=== PATIENT | female | born 1945 | race Caucasian/White ===

== ENCOUNTER → 2017-05-23 14:50 | Outpatient (POV) | payer MEDICARE, SELFPAY | PROVIDERS: Visit Provider Dermatology | DX: Z00.00 Encounter for general adult medical examination without abnormal findings (principal) ==

== ENCOUNTER → 2017-12-09 10:19 | Outpatient (CLI) | payer MEDICARE, OTHER, SELFPAY ==
--- NOTE | 2017-12-09 10:22 | MM_ITS ---
MM Dig screening mamm BI w/CAD ORDERING PHYSICIAN : Delgado Blanca MD PATIENT AGE: 72 years GENDER: Female COMPARISON: November 2016, 2015, 2014, October INDICATION: ITS.REASON: screening no hormones no new complaints. Previous excisional biopsy left breast inverted nipple on left hilar nodes Family history. Sister & maternal Aunt with breast cancer TECHNIQUE: Standard CC and MLO images were obtained. R2 CAD reviewed. FINDINGS: Moderate breast density. Stable mild asymmetric pattern bilateral. . No suspicious, dominant mass. No suspicious calcifications. RIGHT BREAST:No areas of significant concern.. MLO appears unchanged since at least 2013 LEFT BREAST: Long-standing subtle architectural distortion is seen at the central left breast was 12:00. A pacemaker is noted just at the superior most margin of MLO image IMPRESSION: ...... Stable bilateral mammogram. Bilateral follow-up in one year recommended. No significant new findings. Moderate density BI-RADS Category: 2 Benign Finding(s) RECOMMENDED FOLLOW-UP: 1YR 1 YEAR FOLLOW-UP (A letter has been sent to the patient regarding results of the study.)
== END ==
PROVIDERS: PCP Physician Assistant; Visit Provider Obstetrics & Gynecology
DX: Z12.31 Encounter for screening mammogram for malignant neoplasm of breast (principal)
CPT/HCPCS: 77067

== ENCOUNTER → 2018-01-14 11:06 | Outpatient (POV) | payer MEDICARE, OTHER, SELFPAY | PROVIDERS: Visit Provider Dermatology | DX: Z00.00 Encounter for general adult medical examination without abnormal findings (principal) ==

== ENCOUNTER 2018-06-09 08:00 | Outpatient (RCR) | payer MEDICARE, OTHER, SELFPAY | END 2018-06-09 14:44 | disposition home or self-care (01) | LOC: OT 08:00 | PROVIDERS: Visit Provider Orthopaedic Surgery Adult Reconstructive Orthopaedic Surgery | DX: M75.42 Impingement syndrome of left shoulder (principal) | CPT/HCPCS: 97033; 97110; 97165 ==

== ENCOUNTER → 2018-12-18 16:19 | Outpatient (CLI) | payer MEDICARE, OTHER, SELFPAY ==
--- NOTE | 2018-12-18 16:23 | MM_ITS ---
PROCEDURE: MM DIG SCREENING MAMM BI W/CAD CLINICAL INDICATION: screening There is a history of breast cancer patient's maternal aunt and sister both diagnosed after menopause. COMPARISON: [facility] DIG MAMM-SCREEN RONY from 12/05/2015 [facility] DIG MAMM-SCREEN RONY W/CAD from 12/06/2016 [facility] MM Dig screening mamm BI w/CAD from 12/09/2017 TECHNIQUE: Standard CC and MLO images were obtained. R2 CAD reviewed. FINDINGS: Moderate diffuse somewhat heterogenic fibroglandular densities are seen in this central portions of both breasts and the findings of bilateral and symmetrical. There is faint arterial calcification in each breast. There is no suspicious lesion and no suspicious microcalcifications. IMPRESSION: Moderate breast density with no suspicious lesions seen BI-RAD Category: 2 Benign Finding(s) FOLLOW-UP: 1YR 1 Year Follow-up (A letter has been sent to the patient regarding results of the study.) Dictated by: Dr. Fede Salas MD 12/22/2018 09:[address] Fede Salas MD in [place] 12/22/2018 09:33
== END ==
PROVIDERS: PCP Physician Assistant; Visit Provider Obstetrics & Gynecology
DX: Z12.31 Encounter for screening mammogram for malignant neoplasm of breast (principal)
CPT/HCPCS: 77067

== ENCOUNTER → 2018-12-22 12:52 | Outpatient (CLI) | payer MEDICARE, OTHER, SELFPAY ==
--- NOTE | 2018-12-22 12:54 | XR_ITS ---
PROCEDURE: XR DEXA AXIAL SKELETON CLINICAL HISTORY: screening COMPARISON: No exams were available for comparison FINDINGS: L1-L4 density is 1.145 grams/centimeters sq with T-score -0.3 which is normal. Left femoral neck density is 0.855 grams/centimeters sq with a T-score -1.3 indicating osteopenia IMPRESSION: Osteopenia with moderate fracture risk. Treatment advised. Suggest follow-up exam December 2020 Dictated by: Charly Loyola MD 12/22/2018 14:12 Electronically signed by Charly Loyola MD in [place] 12/22/2018 14:12
== END ==
PROVIDERS: PCP Physician Assistant; Visit Provider Obstetrics & Gynecology
DX: Z78.0 Asymptomatic menopausal state (principal); M85.89 Other specified disorders of bone density and structure, multiple sites
CPT/HCPCS: 77080

== ENCOUNTER → 2019-11-03 11:15 | Outpatient (POV) | payer MEDICARE, OTHER, SELFPAY | PROVIDERS: Visit Provider Dermatology | DX: Z00.00 Encounter for general adult medical examination without abnormal findings (principal) ==

== ENCOUNTER → 2019-12-15 14:02 | Outpatient (POV) | payer MEDICARE, OTHER, SELFPAY | PROVIDERS: Visit Provider Dermatology | DX: Z00.00 Encounter for general adult medical examination without abnormal findings (principal) ==

== ENCOUNTER → 2019-12-23 12:33 | Outpatient (CLI) | payer MEDICARE, OTHER, SELFPAY ==
--- NOTE | 2019-12-23 12:36 | MM_ITS ---
PROCEDURE: MM DIG SCREENING MAMM BI W/CAD Digital Breast Tomosynthesis Included CLINICAL INDICATION: SCREENING There is a history of breast cancer patient's maternal aunt and sister both diagnosed after menopause. There has been a previous biopsy left breast for benign disease. COMPARISON: MG [facility] DIG MAMM-SCREEN RONY W/CAD from 12/06/2016 MG [facility] MM Dig screening mamm BI w/CAD from 12/09/2017 MG MM DIG SCREENING MAMM BI W/CAD from 12/18/2018 TECHNIQUE: Standard CC and MLO images and 3D Tomosynthesis was obtained. R2 CAD reviewed. FINDINGS: The fibroglandular densities are seen in the central portions of both breasts and the findings are bilateral and symmetrical. There is faint arterial calcification in each breast. A cardiac device is seen projecting over the left axilla. 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 There is no new or suspicious lesion in either breast and no suspicious microcalcifications. IMPRESSION: Moderate breast density with no suspicious lesions seen BI-RAD Category: 2 Benign Finding(s) FOLLOW-UP: 1YR 1 Year Follow-up (A letter has been sent to the patient regarding results of the study.) Dictated by: Dr. Fede Salas MD 12/29/2019 07:51 Dr. Fede Salas MD in [place] 12/29/2019 07:51
== END ==
PROVIDERS: PCP Physician Assistant; Visit Provider Physician Assistant
DX: Z12.31 Encounter for screening mammogram for malignant neoplasm of breast (principal)
CPT/HCPCS: 77063; 77067

== ENCOUNTER → 2020-06-03 09:53 | Outpatient (CLI) | payer MEDICARE, OTHER, SELFPAY ==
--- NOTE | 2020-06-03 09:56 | XR_ITS ---
PROCEDURE: XR DEXA AXIAL SKELETON CLINICAL HISTORY: OSTEOPOROSIS COMPARISON: CR,DX BONE3 BONE DENSITOMETRY(HIP:LT SPINE from 12/05/2015 FINDINGS: The right hip BMD is 0.807 with a T-score of -0.4. The left hip BMD is 0.712 with a T-score of -1.2. The lumbar spine BMD is 0.967 with a T-score of -0.7. Previously the lowest density was in the left femoral neck with a T-score of -1.0 IMPRESSION: This patient is considered osteopenic according to the World Health Organization criteria. Bone density is between 10 and 25 percent below young normal. Fracture risk is moderate. Treatment is advised. Based on these results a follow-up exam is recommended in 2 year. Dictated by: Charly Loyola MD 06/04/2020 13:31 Charly Loyola MD in [place] 06/04/2020 13:31
== END ==
PROVIDERS: PCP Physician Assistant; Visit Provider Physician Assistant
DX: M81.0 Age-related osteoporosis without current pathological fracture (principal)
CPT/HCPCS: 77080

== ENCOUNTER 2020-10-19 12:43 | Outpatient (CLI) | payer MEDICARE, OTHER, SELFPAY ==
[2020-10-19 13:03] VITALS: BP 119/56; PULSE 64; RESP 18; TEMP 36.8; O2SAT 98
== END 2020-10-19 13:15 | disposition home or self-care (01) ==
LOC: INF 12:45
PROVIDERS: PCP Family Medicine; Visit Provider Family Medicine
DX: M85.89 Other specified disorders of bone density and structure, multiple sites (principal)
CPT/HCPCS: 96372; J0897

== ENCOUNTER → 2020-12-26 12:43 | Outpatient (CLI) | payer MEDICARE, OTHER, SELFPAY ==
--- NOTE | 2020-12-26 13:12 | MM_ITS ---
PROCEDURE INFORMATION: Exam: MG Bilateral Screening 3D Mammography Exam date and time: 12/26/2020 1:12 PM Age: 75 years old Clinical indication: Encounter for screening mammogram for malignant neoplasm of breast TECHNIQUE: Imaging protocol: Bilateral screening tomosynthesis and 2D mammography including computer-aided detection (CAD) when performed. COMPARISON: 1. MG MM DIG SCREENING MAMM BI W/CAD 12/23/2019 1:06 PM 2. MG MM DIG SCREENING MAMM BI W/CAD 12/18/2018 4:32 PM FINDINGS: MAMMOGRAPHY: Breast composition: The breast tissue is heterogeneously dense, which may obscure small masses. There is limited evaluation of the posterior left upper breast and pectoralis muscle on the left. IMPRESSION: Patient to be recalled for a repeat left MLO view for better visualization of the posterior tissue and pectoralis muscle at which time a full radiographic interpretation will be made ASSESSMENT: BI-RADS Category 0: Incomplete- Need Additional Imaging Evaluation and/or Prior Mammograms for Comparison
== END ==
PROVIDERS: PCP Family Medicine; Visit Provider Family Medicine
DX: Z12.31 Encounter for screening mammogram for malignant neoplasm of breast (principal)
CPT/HCPCS: 77063; 77067

== ENCOUNTER → 2021-01-17 14:41 | Outpatient (POV) | payer MEDICARE, OTHER, SELFPAY | PROVIDERS: Visit Provider Dermatology | DX: Z00.00 Encounter for general adult medical examination without abnormal findings (principal) ==

== ENCOUNTER → 2021-01-24 14:31 | Outpatient (CLI) | payer MEDICARE, OTHER, SELFPAY ==
--- NOTE | 2021-01-24 14:36 | US_ITS ---
PROCEDURE INFORMATION: Exam: US Left Breast, Complete MG Left Diagnostic Breast Tomosynthesis Exam date and time: 01/24/2021 2:36 PM Age: 75 years old Clinical indication: PT has a frozen lt shoulder. Preventing adequate muscle. PT also had a lt breast u/s to evaluate the area; U/s evaluation of axillary tail due to inadequate muscle on mammogram. TECHNIQUE: Imaging protocol: Complete ultrasound of all four quadrants of the Left breast and the retroareolar regions, including ultrasound of the axilla when performed. Left Diagnostic tomosynthesis and 2D mammography including computer-aided detection (CAD) when performed. Unilateral or bilateral exam. COMPARISON: 1. MG MM DIG SCREENING MAMM BI W/CAD 12/26/2020 1:08 PM 2. MG MM DIG SCREENING MAMM BI W/CAD 12/23/2019 1:06 PM FINDINGS: MAMMOGRAPHY: The breast tissue is heterogeneously dense, which may obscure small masses. There is no stellate mass, architectural distortion or suspicious microcalcifications in either breast to suggest malignancy. No skin thickening or axillary adenopathy. The study is limited by the patient's inability to fully cooperate with the examination ULTRASOUND: Sonographic images of the left breast including the retroareolar region, all 4 quadrants and the axilla do not demonstrate any solid or cystic masses. No architectural distortion or acoustical shadowing. No skin thickening or axillary adenopathy. IMPRESSION: No mammographic or sonographic evidence of malignancy. Annual bilateral mammographic screening is recommended unless otherwise clinically indicated. ASSESSMENT: BI-RADS Category 1: Negative
== END ==
PROVIDERS: PCP Family Medicine; Visit Provider Family Medicine
DX: R92.8 Other abnormal and inconclusive findings on diagnostic imaging of breast (principal)
CPT/HCPCS: 76641; 77061; 77065; G0279

== ENCOUNTER 2021-04-18 12:16 | Outpatient (CLI) | payer MEDICARE, OTHER, SELFPAY ==
[2021-04-18 12:33] VITALS: BP 113/47; PULSE 67; RESP 16; TEMP 36.2; O2SAT 98
== END 2021-04-18 12:34 | disposition home or self-care (01) ==
LOC: INF 12:19
PROVIDERS: PCP Family Medicine; Visit Provider Family Medicine
DX: M81.0 Age-related osteoporosis without current pathological fracture (principal)
CPT/HCPCS: 96372; J0897

== ENCOUNTER 2021-07-24 09:41 | Emergency (ER) | payer MEDICARE, OTHER, SELFPAY ==
[2021-07-24 09:42] VITALS: BP 132/102; PULSE 91; RESP 16; TEMP 36.6; O2SAT 98; BMI 25.8
[2021-07-24 09:46] VITALS: BP 132/102; PULSE 98; O2SAT 100
--- NOTE | 2021-07-24 09:46 | XR_ITS ---
FINAL REPORT CLINICAL HISTORY: fall, knee injury, pain and swelling lt knee cap FINDINGS: LEFT KNEE 3 views of the left knee were obtained. There is no acute fracture or dislocation. Visualized joint spaces are normally aligned. There is prepatellar soft tissue swelling. IMPRESSION: No acute bony abnormality. Reviewed, Interpreted and Dictated by Juan Taylor III, MD Transcribed by Shelbi Pham Authenticated and [facility]
--- NOTE | 2021-07-24 09:46 | CT_ITS ---
FINAL REPORT CLINICAL HISTORY: fall, left front hematoma FINDINGS: Axial images of the head were obtained without contrast. Coronal reformatted images were also obtained. This study was performed with techniques to keep radiation doses as low as reasonably achievable (ALARA). Individualized dose reduction techniques using automated exposure control or adjustment of mA and/or kV according to the patient''s size were employed. There is generalized age-appropriate atrophy. Periventricular low-attenuation areas are seen consistent with mild chronic ischemic changes. There is no evidence of intracranial hemorrhage or mass. There is no evidence of acute infarct. There is no evidence of shift of the midline structures. No skull abnormality is seen on the bone window images. There is left frontal scalp hematoma noted. IMPRESSION: Atrophy and mild periventricular chronic ischemic changes. No acute intracranial abnormality identified. Reviewed, Interpreted and Dictated by Juan Taylor III, MD Transcribed by Shelbi Pham Authenticated and [facility]
--- NOTE | 2021-07-24 09:46 | XR_ITS ---
FINAL REPORT CLINICAL HISTORY: fall, pain, lt ant rib pain FINDINGS: RIBS WITH CHEST A single PA view of the chest and three views of the ribs were obtained. A left subclavian pacemaker is in place. The heart and mediastinum within normal limits. The lungs are clear. There is no pneumothorax. There is irregularity of the left distal 5th, 6th and 7th ribs worrisome for nondisplaced fractures. IMPRESSION: Irregularity of the distal left 5th, 6th and 7th ribs worrisome for nondisplaced fractures. No pneumothorax or acute cardiopulmonary process. Reviewed, Interpreted and Dictated by Juan Taylor III, MD Transcribed by Shelbi Pham Authenticated and . [facility]
--- NOTE | 2021-07-24 09:48 | HMH.EDGENADL ---
ED Disposition Clinical Impression: Fall Qualifiers: Encounter type: initial encounter Qualified Code(s): W19.XXXA - Unspecified fall, initial encounter Traumatic closed nondisplaced fracture of one rib of left side Qualifiers: Encounter type: initial encounter Qualified Code(s): S22.32XA - Fracture of one rib, left side, initial encounter for closed fracture Contusion of left knee Qualifiers: Encounter type: initial encounter Qualified Code(s): S80.02XA - Contusion of left knee, initial encounter Traumatic hematoma of forehead Qualifiers: Encounter type: initial encounter Qualified Code(s): S00.83XA - Contusion of other part of head, initial encounter Disposition: Home, Self-Care Condition on Discharge: Fair Instructions: DI for Rib Fracture, DI for Rib Contusion, DI for Closed Head Injury Additional Instructions: You have been evaluated for injuries from a fall. You have been diagnosed with nondisplaced rib fracture on the left. You have soft tissue swelling (contusion) of the left forehead and left knee. Please take Tylenol and Motrin for pain. Use the incentive spirometer to prevent development of pneumonia. Follow-up with your primary care doctor before the end of the week. Return to the emergency department at once for any new or worsening symptoms. Prescriptions: Hydrocod/Acet 5/325 mg [[place] 5/325mg tablet] 1 tab PO Q6HP PRN #6 tab PRN Reason: Severe Pain Transmission Status: Sent to [facility] Referrals: Opal Tanner [Primary Care Provider] - Time of Disposition: 12:04 - Critical Care Critical Care Time: No Attestation: On , the high probability of a clinically significant, sudden or life threatening deterioration of the following system(s) required my full and direct attention, intervention and personal management. The time I documented below is in addition to time spent performing reported procedures but includes the following listed in this critical care notation. Medical Decision Making - Medical Records Medical records reviewed: Yes: I reviewed the patient's medical records. - Quan Inquiry Pt receiving controlled substance: No Vital Signs: 07/24/21 09:42 07/24/21 09:46 Temperature 98 F Temperature Source Oral Pulse Rate 98 H Pulse Rate [Left Radial] 91 H Respiratory Rate 16 Blood Pressure 132/102 H Blood Pressure [Right Arm] 132/102 H Blood Pressure Mean [Right Arm] 112 Blood Pressure Source [Right Arm] Automatic Cuff Blood Pressure Position [Right Arm] Sitting 02 Sat by Pulse Oximetry 98 100 Oxygen Delivery Method Room Air Orders (Tests/Meds): ED MEDICATIONS Discontinued Medications Generic Name Dose Route Start Last Admin Trade Name Layne PRN Reason Stop Dose Admin Acetaminophen 500 mg 07/24/21 09:52 07/24/21 10:23 Acetaminophen 500mg Tab PO 07/24/21 09:53 500 mg ONCE ONE Administration - Radiology Data #1 Image(s): Chest Image Reviewed: Yes I reviewed the patient's radiology results, Yes I reviewed the patient's radiology image Preliminary Findings: Abnormal Possible nondisplaced rib fractures, left 5, 6, 7 #2 Image(s): Knee Image Reviewed: Yes I reviewed the patient's radiology results, Yes I reviewed the patient's radiology image, Yes I have reviewed radiologist's interpretation Preliminary Findings: Normal/NAD - CT Data CT Scan: Head Time Received: 12:[address] Reviewed: Yes: I have reviewed the patient's CT results, I have viewed the radiologist's interpretation Preliminary Findings: Normal/NAD Medical Decision Narrative: In summary this is a 76-year-old female who takes daily aspirin, presenting to the emergency department with head injury, left-sided rib pain, left knee pain after a fall. Patient clinically stable on arrival. Vital signs within normal limits. She is conversational. Will obtain noncontrast head CT, x-ray left knee, x-ray ribs. Noncontrast head CT shows no intracranial blee
--- NOTE | 2021-07-24 09:56 | PC.NURSE ---
notified rad of xray orders, spoke with epi
--- NOTE | 2021-07-24 10:00 | PC.NURSE ---
pt to radiology
--- NOTE | 2021-07-24 10:22 | PC.NURSE ---
pt return from radiology
--- NOTE | 2021-07-24 10:25 | PC.NURSE ---
Ice pack given to pt
[2021-07-24 11:30] VITALS: BP 118/47
[2021-07-24 12:00] VITALS: BP 128/53
--- NOTE | 2021-07-24 12:20 | PC.NURSE ---
respiratory called to give pt incentive spirometer
[2021-07-24 12:31] VITALS: BP 122/46
--- NOTE | 2021-07-24 12:53 | PC.NURSE ---
contacted [facility] pharmacy about pt requesting prescription to go to [facility] instead. Pharmacist states she will back prescription out so it can be filled at [facility]
[2021-07-24 12:55] VITALS: BP 122/46; PULSE 68; RESP 16; TEMP 36.6; O2SAT 99
== END 2021-07-24 12:55 | disposition home or self-care (01) ==
PROVIDERS: Emergency Provider Emergency Medicine; PCP Family Medicine
DX: S22.32XA Fracture of one rib, left side, initial encounter for closed fracture (principal); S80.02XA Contusion of left knee, initial encounter; S00.83XA Contusion of other part of head, initial encounter; W01.0XXA Fall on same level from slipping, tripping and stumbling without subsequent striking against object, initial encounter; Z79.82 Long term (current) use of aspirin; Z79.899 Other long term (current) drug therapy; I48.91 Unspecified atrial fibrillation; E78.5 Hyperlipidemia, unspecified; I10 Essential (primary) hypertension; Z95.0 Presence of cardiac pacemaker; E03.9 Hypothyroidism, unspecified; M81.0 Age-related osteoporosis without current pathological fracture
CPT/HCPCS: 70450; 71101; 73562; 99284

== ENCOUNTER → 2021-08-29 14:07 | Outpatient (POV) | payer MEDICARE, OTHER, SELFPAY | PROVIDERS: Visit Provider Dermatology | DX: Z00.00 Encounter for general adult medical examination without abnormal findings (principal) ==

== ENCOUNTER 2021-12-11 10:53 | Outpatient (CLI) | payer MEDICARE, OTHER, SELFPAY | END 2021-12-11 11:12 | disposition home or self-care (01) | LOC: INF 10:54 | PROVIDERS: PCP Family Medicine; Visit Provider Family Medicine | DX: M85.89 Other specified disorders of bone density and structure, multiple sites (principal) | CPT/HCPCS: 96372; J0897 ==

== ENCOUNTER → 2022-01-26 10:09 | Outpatient (CLI) | payer MEDICARE, OTHER, SELFPAY ==
--- NOTE | 2022-01-26 10:13 | MM_ITS ---
PROCEDURE INFORMATION: Exam: MG Bilateral Screening 3D Mammography Exam date and time: 01/26/2022 10:19 AM Age: 76 years old Clinical indication: Screening examination TECHNIQUE: Imaging protocol: Bilateral Screening tomosynthesis and 2D mammography including computer-aided detection (CAD) when performed.Limited assessment due to difficulty positioning the patient. COMPARISON: 1. MG MM DIG MAMM DX UNILAT LT CAD 01/24/2021 2:42 PM 2. MG MM DIG SCREENING MAMM BI W/CAD 12/26/2020 1:08 PM 3. MG MM DIG SCREENING MAMM BI W/CAD 12/23/2019 1:06 PM 4. MG MM DIG SCREENING MAMM BI W/CAD 12/18/2018 4:32 PM FINDINGS: MAMMOGRAPHY: Breast composition: The breast is heterogeneously dense, which may obscure small masses. Mass: None. Architectural distortion: No new or suspicious architectural distortion. Calcifications: No new or suspicious calcifications are present Asymmetric density: No new or suspicious asymmetric density is present Skin thickening: None. Axillary adenopathy: None. IMPRESSION: No mammographic evidence of malignancy. Recommend annual screening mammography unless otherwise clinically indicated. ASSESSMENT: BI-RADS category 1: Negative
== END ==
PROVIDERS: PCP Family Medicine; Visit Provider Family Medicine
DX: Z12.31 Encounter for screening mammogram for malignant neoplasm of breast (principal)
CPT/HCPCS: 77063; 77067

== ENCOUNTER 2022-06-11 12:42 | Outpatient (CLI) | payer MEDICARE, OTHER, SELFPAY ==
[2022-06-11 12:57] VITALS: BP 129/67; PULSE 76; RESP 18; TEMP 36.4; O2SAT 100
== END 2022-06-11 13:20 | disposition home or self-care (01) ==
LOC: INF 12:43
PROVIDERS: PCP Family Medicine; Visit Provider Family Medicine
DX: M81.0 Age-related osteoporosis without current pathological fracture (principal)
CPT/HCPCS: 96372; J0897

== ENCOUNTER 2022-12-11 13:01 | Outpatient (CLI) | payer MEDICARE, OTHER, SELFPAY ==
[2022-12-11 13:12] VITALS: BP 124/60; PULSE 88; RESP 16; TEMP 36.7; O2SAT 99
== END 2022-12-11 13:25 | disposition home or self-care (01) ==
LOC: INF 13:03
PROVIDERS: PCP Family Medicine; Visit Provider Family Medicine
DX: M85.89 Other specified disorders of bone density and structure, multiple sites (principal)
CPT/HCPCS: 96372; J0897

== ENCOUNTER → 2023-02-12 10:08 | Outpatient (CLI) | payer MEDICARE, OTHER, SELFPAY ==
--- NOTE | 2023-02-12 10:14 | MM_ITS ---
PROCEDURE INFORMATION: Exam: MG Bilateral Screening 3D Mammography Exam date and time: 02/12/2023 10:03 AM Age: 77 years old Clinical indication: Screening mammogram TECHNIQUE: Imaging protocol: Bilateral Screening tomosynthesis and 2D mammography including computer-aided detection (CAD) when performed. COMPARISON: 1. MG MM DIG SCREENING MAMM BI W/CAD 01/26/2022 10:19 AM 2. MG MM DIG MAMM DX UNILAT LT CAD 01/24/2021 2:42 PM 3. MG MM DIG SCREENING MAMM BI W/CAD 12/26/2020 1:08 PM 4. MG MM DIG SCREENING MAMM BI W/CAD 12/23/2019 1:06 PM FINDINGS: MAMMOGRAPHY: Breast composition: There are scattered areas of fibroglandular density. Mass: None. Architectural distortion: No new or suspicious architectural distortion. Calcifications: No new or suspicious calcifications are present Asymmetric density: No new or suspicious asymmetric density is present Skin thickening: None. Axillary adenopathy: None. IMPRESSION: No mammographic evidence of malignancy. Recommend annual screening mammography unless otherwise clinically indicated. ASSESSMENT: BI-RADS category 1: Negative
== END ==
PROVIDERS: PCP Family Medicine; Visit Provider Family Medicine
DX: Z12.31 Encounter for screening mammogram for malignant neoplasm of breast (principal)
CPT/HCPCS: 77063; 77067

== ENCOUNTER 2023-03-19 11:19 | Outpatient (POV) | payer MEDICARE, OTHER, SELFPAY | END 2023-03-19 23:59 | disposition home or self-care (01) | LOC: SC 11:19 | PROVIDERS: PCP Family Medicine; Visit Provider Dermatology | DX: Z00.00 Encounter for general adult medical examination without abnormal findings (principal) ==

== ENCOUNTER 2023-07-09 14:36 | Outpatient (CLI) | payer MEDICARE, OTHER, SELFPAY ==
[2023-07-09] MEDS: DENOSUMAB 60 MG/ML SYRINGE SQ (14:48)
[2023-07-09 14:50] VITALS: BP 129/61; PULSE 77; RESP 18; TEMP 37; O2SAT 97
== END 2023-07-09 14:55 | disposition home or self-care (01) ==
LOC: INF 14:37
PROVIDERS: PCP Family Medicine; Visit Provider Family Medicine
DX: M85.89 Other specified disorders of bone density and structure, multiple sites (principal)
CPT/HCPCS: 96372; J0897

== ENCOUNTER 2023-07-22 11:03 | Emergency (ER) | payer MEDICARE, OTHER, SELFPAY ==
--- NOTE | 2023-07-22 11:21 | XR_ITS ---
FINAL REPORT TECHNIQUE: Single view chest CLINICAL HISTORY: dyspnea FINDINGS: A single view of the chest was obtained. The heart and mediastinum are within normal limits. The lungs are clear. There is no pneumothorax. Osseous structures are unremarkable. IMPRESSION: No acute cardiopulmonary process. Reviewed, Interpreted and Dictated by Juan Taylor III, MD Transcribed by Shelbi Pham Authenticated and [facility]
--- NOTE | 2023-07-22 11:23 | ED_ITS ---
Discharge Plan Disposition Patient Disposition: Home, Self-Care Prescriptions Prescriptions: No Action magnesium oxide 400 mg (241.3 mg magnesium) tablet 400 mg PO BID mexiletine 150 mg capsule 150 mg PO TID atorvastatin 10 mg tablet 5 mg PO DAILY carvedilol [Coreg] 25 mg tablet 25 mg PO BID spironolactone 25 mg tablet 25 mg PO DAILY levothyroxine 50 mcg capsule 50 mcg PO DAILY aspirin [Adult Low Dose Aspirin] 81 mg tablet,delayed release (DR/EC) 81 mg PO DAILY lisinopril 20 mg tablet 20 mg PO DAILY omeprazole 20 MG capsule,delayed release(DR/EC) 40 mg PO DAILY multivitamin 1 EACH tablet 1 each PO DAILY furosemide 20 MG tablet 20 mg PO DAILYP PRN (Reason: fluid) potassium chloride 10 MEQ capsule, extended release 10 meq PO DAILYP PRN (Reason: supplement) hydrocodone-acetaminophen 1 TAB tablet 1 tab PO Q6HP PRN (Reason: Severe Pain) Qty: 6 0RF Referrals Follow up/Referrals: Opal Tanner [Primary Care Provider] - See instructions Activity Restrictions/Add. Instructions Additional Instructions/Restrictions: No thoracic or abdominal emergency identified your symptoms are consistent with a musculoskeletal chest wall strain in the right inferior border of your chest wall itself. Please return with any significant worsening symptoms such as worsening abdominal pain nausea and vomiting blood in your urine high fevers or other concerns. Clinical Impressions Clinical Impression: Chest wall muscle strain Discharge ED Provider: Iraj Pratt General Adult HPI General Chief complaint: PAIN Stated complaint: right side pain Time Seen by Provider: 07/22/23 11:13 History of Present Illness HPI narrative: Patient is an 78-year-old female presents today with inferior right lateral aspect of chest wall/right upper quadrant abdominal pain. States that she was weed eating and mowing grass all day on Saturday and subsequently started to have pain in this area that she believes is a muscle strain. She does have some mild difficulty with inspiration. But does not feel short of breath moment. She denies any abdominal pain. No fevers chills no urinary symptoms nausea vomiting or diarrhea. She took Tylenol last night which knocked me out. Related Data Home Medications Medication Instructions Recorded Confirmed aspirin 81 mg tablet,delayed 81 mg PO DAILY Blood thinner 12/09/17 12/11/22 release (Adult Low Dose Aspirin) atorvastatin 10 mg tablet 5 mg PO DAILY Cholesterol 12/09/17 12/11/22 carvedilol 25 mg tablet (Coreg) 25 mg PO BID irregular heartbeat 12/09/17 12/11/22 levothyroxine 50 mcg capsule 50 mcg PO DAILY thyroid 12/09/17 12/11/22 lisinopril 20 mg tablet 20 mg PO DAILY blood pressure 12/09/17 12/11/22 magnesium oxide 400 mg (241.3 mg 400 mg PO BID Supplement 12/09/17 12/11/22 magnesium) tablet mexiletine 150 mg capsule 150 mg PO TID irregular heartbeat 12/09/17 12/11/22 spironolactone 25 mg tablet 25 mg PO DAILY Fluid 12/09/17 12/11/22 furosemide 20 mg tablet 20 mg PO DAILYP PRN fluid 10/19/20 12/11/22 multivitamin 1 each PO DAILY Supplement 10/19/20 12/11/22 omeprazole 20 mg capsule,delayed 40 mg PO DAILY GERD 10/19/20 12/11/22 release potassium chloride 10 mEq 10 meq PO DAILYP PRN supplement 10/19/20 12/11/22 capsule,extended release Previous Rx's Medication Instructions Recorded hydrocodone 5 mg-acetaminophen 325 1 tab PO Q6HP PRN Severe Pain #6 07/24/21 mg tablet tabs Allergies Allergy/AdvReac Type Severity Reaction Status Date / Time No Known Allergies Allergy Unverified 12/29/18 15:56 [facility] Disclaimer: The information contained in this section may have been updated after the patient was seen, as this information can be updated by other users. Medical History (Updated 07/22/23 @ 12:57 by Iraj Pratt MD) Pacemaker Normal colonoscopy Osteoarthritis GERD (gastroesophageal reflux disease) Cardiomyopathy Hypothyroidism HTN (hypertension) HLD (hyperlipidemia) A-fib Arrhythmia Surgical History History of surgical removal of left nipple Family History Other Hypertension Social History (Updated 12/11/22 @ 13:21 by Gage Riggs, [place]) Smoking Status: Never smoker alcohol intake: never substance use type: denies use current occupational status: retired Travel in the last 8 weeks: None housing: house ROS Obtained: Yes All systems reviewed & no additional complaints except as documented Physical Exam General General appearance: alert and in no apparent distress Chest Chest inspection: Present tenderness (Inferior right lateral chest wall tenderness to rib margin) Respiratory Respiratory exam: Present normal lung sounds bilaterally; Absent respiratory distress Cardiovascular Cardiovascular exam: Present regular rate and normal rhythm Abdominal Exam Abdominal exam: Present soft; Absent distention or tenderness Neurological Exam Neurological exam: Present alert and oriented X3 Medical Decision Making Quan Inquiry Pt receiving controlled substance: No Vital Signs: 07/22/23 11:34 07/22/23 12:00 Temperature 97.8 F Temperature Source Oral Pulse Rate 63 Pulse Rate [Left Radial] 71 Respiratory Rate 20 Blood Pressure 111/52 L Blood Pressure [Right Arm] 118/66 Blood Pressure Mean [Right Arm] 83 02 Sat by Pulse Oximetry 96 99 Oxygen Delivery Method Room Air Lab Data Lab results reviewed: Yes I reviewed the patient's lab results. Lab Results 07/22/23 12:08: WBC 7.6, RBC 3.83 L, Hgb 11.5 L, Hct 35.2 L, MCV 91.8, MCH 30.1, MCHC 32.8, RDW 13.7, Plt Count 200, MPV 7.7, Neut % (Auto) 55.1, Lymph % (Auto) 30.0, [place] % (Auto) 9.5 H, Eos % (Auto) 4.5, Baso % (Auto) 1.0, Neut # (Auto) 4.2, Lymph # (Auto) 2.3, [place] # (Auto) 0.7, Eos # (Auto) 0.3, Baso # (Auto) 0.1, D-Dimer 0.41, Sodium 138, Potassium 4.4, Chloride 102, Carbon Dioxide 26, Anion Gap 14.4, BUN 30 H, Creatinine 1.30 H, Estimated Creat Clear 36, Estimated GFR 39 L, Est GFR ( Amer) 48 L, Glucose 113 H, Calcium 9.2, Total Bilirubin 0.4, AST 31, ALT 27, Alkaline Phosphatase 50, Total Protein 7.2, Albumin 4.2, Globulin 3.0, Albumin/Globulin Ratio 1.4, Lipase 266 07/22/23 12:08 07/22/23 12:08 Orders (Tests/Meds): ED MEDICATIONS Discontinued Medications Generic Name Dose Route Start Last Admin Trade Name Freq PRN Reason Stop Dose Admin Acetaminophen 650 mg 07/22/23 11:21 07/22/23 11:32 Acetaminophen 325mg Tab PO 07/22/23 11:22 650 mg ONCE ONE Administration ORDERS Category Date Time Status CXR --portable [XR chest portable] Stat Exams 07/22/23 11:21 Taken POCUS Point of Care (ER Only) Stat Exams 07/22/23 11:22 Completed CBC w/Auto Diff [Complete Blood Count Auto Diff] Stat Lab 07/22/23 12:08 Completed CMP [Comprehensive Metabolic Panel] Stat Lab 07/22/23 12:08 Completed D-Dimer Stat Lab 07/22/23 12:08 Completed Lipase Stat Lab 07/22/23 12:08 Completed UA [Urinalysis and Microscopic] Stat Lab 07/22/23 Received Medical Decision Narrative: Patient with above history and physical most likely musculoskeletal strain after a long day of yard work. She took Tylenol with some improvement last night. Differential also includes a peripheral pneumonia pulmonary embolism cancer pathologic fracture hepatobiliary disease etc. will give Tylenol get basic blood work and ultrasound workup and chest x-ray and reassess. Chest x-ray performed to person interpreted which shows no acute cardiopulmonary abnormality Reassessment 1258 patient sleeping comfortably labs unremarkable D-dimer below threshold for CT PE pulmonary embolism is unlikely. No peripheral abnormality on chest x-ray. I am not suspicious of acute coronary syndrome or myocardial injury. Abdominal exam is benign no urinary symptoms overall this is consistent with a musculoskeletal chest wall strain she has been advised to take Tylenol and to rest and to return with any significant worsening symptoms. Critical Care Critical Care Time Critical Care Time: No
[2023-07-22] MEDS: ACETAMINOPHEN 325MG TAB 650 MG PO (11:32)
[2023-07-22 11:34] VITALS: BP 118/66; PULSE 71; RESP 20; TEMP 36.6; O2SAT 96; BMI 26.0
[2023-07-22 12:00] VITALS: BP 111/52; PULSE 63; O2SAT 99
[2023-07-22 12:18] LABS: Microscopic, Urine URINE MICROSCOPIC (MICROSCOPIC)
[2023-07-22 12:35] LABS: Alanine Aminotransferase 27 U/L (12-78); Albumin Level 4.2 g/dl (3.5-5.0); Albumin/Globulin Ratio 1.4 (1.1-1.8); Alkaline Phosphatase 50 U/L (38-126); Anion Gap 14.4 mEq/L (5-15); Aspartate Amino Transferase 31 U/L (14-36); Bilirubin,Total 0.4 mg/dl (0.2-1.3); Blood Urea Nitrogen 30 mg/dl (7-17); Calcium 9.2 mg/dl (8.4-10.2); Carbon Dioxide 26 mmol/L (22.0-30.0); Chloride 102 mmol/L (98-107); Creatinine Clearance Estimated 36 mL/min (50-200); Estimated Glomerular Filt Rate 39 ml/min (>60); GFR (African American) 48 ML/MIN (>60); Glucose 113 mg/dl (74-100); Potassium 4.4 mmoL/L (3.5-5.1); Sodium 138 mmol/L (136-145); Total Protein,Serum 7.2 g/dl (6.3-8.2)
[2023-07-22 12:36] LABS: Basophils # 0.1 K/mm3 (0-0.2); Eosinophils # 0.3 K/mm3 (0.0-0.4); Eosinophils % 4.5 % (0.1-12.0); Hematocrit 35.2 % (37.0-47.0); Hemoglobin 11.5 g/dL (12.2-16.2); Lymphocytes # 2.3 K/mm3 (0.7-4.5); Mean Corpuscular HGB Conc 32.8 g/dL (31.8-35.4); Mean Corpuscular Hemoglobin 30.1 pg (27.0-31.2); Mean Corpuscular Volume 91.8 fl (81-99); Mean Platelet Volume 7.7 fl (7.4-10.4); Monocytes # 0.7 K/mm3 (0.1-1.0); Monocytes % 9.5 % (1.7-9.3); Neutrophils # 4.2 K/mm3 (1.8-7.8); Neutrophils % 55.1 % (37.0-80.0); Platelet Count 200 K/mm3 (142-424); Red Blood Count 3.83 M/mm3 (4.20-5.40); Red Cell Distribution Width 13.7 % (11.5-17.5); White Blood Count 7.6 K/mm3 (4.8-10.8)
[2023-07-22 12:40] LABS: D-Dimer 0.41 ug/mL (0.0-0.5)
[2023-07-22 12:46] LABS: Lipase 266 U/L (23-300)
[2023-07-22 12:58] LABS: Appearance,Urine CLEAR (Clear); Bilirubin,Urine Negative (Negative); Blood, Urine Negative (Negative); Color,Urine YELLOW (Yellow); Glucose,Urine (UA) Negative (Negative); Ketones,Urine Negative (Negative); Leukocyte Esterase,Urine TRACE (Negative); Nitrate,Urine Negative (Negative); Protein,Urine Negative (Negative); Specific Gravity, Urine 1.015 (1.005-1.030); Urobilinogen,Urine 0.2 EU/dl (0.2)
[2023-07-22 13:04] VITALS: BP 111/70; PULSE 64; RESP 15; TEMP 36.6; O2SAT 98
[2023-07-22 13:16] LABS: Bacteria,Urine Trace /lpf; WBC,Urine Occasional #/hpf (0-3)
== END 2023-07-22 13:04 | disposition home or self-care (01) ==
PROVIDERS: Emergency Provider Student in an Organized Health Care Education/Training Program; PCP Family Medicine
DX: S29.011A Strain of muscle and tendon of front wall of thorax, initial encounter (principal); K21.9 Gastro-esophageal reflux disease without esophagitis; I10 Essential (primary) hypertension; E78.5 Hyperlipidemia, unspecified; E03.9 Hypothyroidism, unspecified; X50.0XXA Overexertion from strenuous movement or load, initial encounter; Z95.0 Presence of cardiac pacemaker
CPT/HCPCS: 71045; 80053; 81001; 83690; 85025; 85378; 99284

== ENCOUNTER 2023-11-26 10:15 | Outpatient (POV) | payer MEDICARE, OTHER, SELFPAY | END 2023-11-26 23:59 | disposition home or self-care (01) | LOC: SC 11-27 06:30 | PROVIDERS: Visit Provider Dermatology | DX: Z00.00 Encounter for general adult medical examination without abnormal findings (principal) ==

== ENCOUNTER 2023-12-25 08:54 | Outpatient (CLI) | payer MEDICARE, OTHER, SELFPAY ==
--- NOTE | 2023-12-25 08:57 | XR_ITS ---
FINAL REPORT CLINICAL HISTORY: screening COMPARISON: 06/03/2020 FINDINGS: Using L1-4, the bone mineral density of the spine is 1.076 g/cm2, corresponding to T-score of 0.3 which is within normal limits. Previously this was 0.967 with a T-score of -0.7. Using the left hip, the bone mineral density of the femoral neck is 0.740 g/cm2, corresponding to a T-score of -1.0 which is within normal limits. Previously this was 0.712 with a T-score of -1.2. Using the right hip, the bone mineral density of the femoral neck is 0.874 g/cm2, corresponding to a T-score of 0.2 which is within normal limits. Previously this was 0.807 with a T-score of -0.4. FRAX not reported because the patient is being treated for osteoporosis. NOTE: T-score: Standard deviation compared with peak bone mass of young adult mean. *Following the recommendations of the International Society of Bone densitometry, classification of hip BMD is based on the lower of two T-scores; total hip or femoral neck. IMPRESSION: Normal bone mineral density of the lumbar spine and hips. Reviewed, Interpreted and Dictated by Juan Taylor III, MD Transcribed by Rubina Ashton Authenticated and [facility]
== END 2023-12-25 23:59 | disposition home or self-care (01) ==
LOC: RAD 08:54
PROVIDERS: PCP Family Medicine; Visit Provider Family Medicine
DX: M81.0 Age-related osteoporosis without current pathological fracture (principal)
CPT/HCPCS: 77080

== ENCOUNTER 2024-01-13 13:33 | Outpatient (CLI) | payer MEDICARE, OTHER, SELFPAY ==
[2024-01-13 13:44] VITALS: BP 115/56; PULSE 89; RESP 16; TEMP 36.4; O2SAT 99
[2024-01-13] MEDS: DENOSUMAB 60 MG/ML SYRINGE SUBCUT (13:44)
== END 2024-01-13 13:50 | disposition home or self-care (01) ==
LOC: INF 13:35
PROVIDERS: PCP Family Medicine; Visit Provider Family Medicine
DX: M81.0 Age-related osteoporosis without current pathological fracture (principal)
CPT/HCPCS: 96372; J0897

== ENCOUNTER 2024-03-04 10:44 | Outpatient (CLI) | payer MEDICARE, OTHER, SELFPAY ==
--- NOTE | 2024-03-04 10:53 | MM_ITS ---
PROCEDURE INFORMATION: Exam: MG Bilateral Screening 3D Mammography Exam date and time: 03/04/2024 10:40 AM Age: 79 years old Clinical indication: Screening examination TECHNIQUE: Imaging protocol: Bilateral Screening tomosynthesis and 2D mammography including computer-aided detection (CAD) when performed. COMPARISON: 1. MG MM DIG SCREENING MAMM BI W/CAD 02/12/2023 10:03 AM 2. MG MM DIG SCREENING MAMM BI W/CAD 01/26/2022 10:19 AM FINDINGS: MAMMOGRAPHY: Breast composition: The breasts are heterogeneously dense, which may obscure small masses. Mass: None. Architectural distortion: None. Calcifications: No suspicious calcifications. Asymmetric density: None. Skin thickening: None. Axillary adenopathy: None. IMPRESSION: No mammographic evidence of malignancy. Annual screening is recommended unless otherwise clinically indicated. ASSESSMENT: BI-RADS Category 1: Negative.
== END 2024-03-04 23:59 | disposition home or self-care (01) ==
LOC: RAD 10:47
PROVIDERS: PCP Family Medicine; Visit Provider Family Medicine
DX: Z12.31 Encounter for screening mammogram for malignant neoplasm of breast (principal)
CPT/HCPCS: 77063; 77067

== ENCOUNTER 2024-03-30 09:44 | Day surgery (SDC) | payer MEDICARE, OTHER, SELFPAY ==
[2024-03-27 09:54] VITALS: BMI 26.2
[2024-03-30 10:35] VITALS: BP 116/65; PULSE 89; RESP 16; TEMP 36.4; O2SAT 98
[2024-03-30] MEDS: LACTATED RINGERS 1000ML 1,000 ML 50 ML IV (10:49)
--- NOTE | 2024-03-30 11:18 | EXP.ANES.CKL ---
[facility] Disclaimer: The information contained in this section may have been updated after the patient was seen, as this information can be updated by other users. Medical History (Updated 03/30/24 @ 10:47 by Ethel Uribe RN) Stomach ulcer Chronic kidney disease Sleep apnea History of COVID-19 History of anemia Pacemaker Normal colonoscopy Osteoarthritis GERD (gastroesophageal reflux disease) Cardiomyopathy Hypothyroidism HTN (hypertension) HLD (hyperlipidemia) A-fib Arrhythmia Surgical History History of surgical removal of left nipple Family History (Updated 03/30/24 @ 10:47 by Ethel Uribe RN) Other A-fib Bone cancer Breast cancer Cancer Colon cancer Heart disease Hypertension Leukemia Social History Smoking Status: Never smoker alcohol intake: never substance use type: denies use current occupational status: retired Travel in the last 8 weeks: None housing: house caffeine: Yes Have you lived/traveled outside US in past 30 days?: No Contact w/someone who lives/traveled outside US past 30 days?: No Exposure to someone with infectious disease in past 14 days?: No Do you have a fever (greater than 100.4 F or 38 C)?: No Have you tested positive for COVID-19: Yes Exposed to someone with COVID-19 in past 14 days?: No Do you have a sore throat?: No Do you have a cough?: No Do you have any weakness?: No Are you experiencing any nausea/vomitting?: No Do you have any diarrhea?: No Are you experiencing any unusual bleeding?: No Do you have any muscle aches/pain?: No Do you have any abdominal pain?: No Are you experiencing loss of taste or smell?: No [facility] Anesthesia Checklist Patient Identification Patient Identification: Arm Band Structural Data Admitted From: Home Planned Operative Procedure/s: EGD Consent for Planned Operative Procedure(s) Verified: Yes Verified Documents: Surgical Consent, History and Physical and Cardiac Clearance NPO Status Verified Time NPO: 00:00 Additional verifications Anesthesia Reactions: No Airway Assessment Mallampati Score:: Class II C-Spine Mobility Assessed: Yes TMJ Mobility Assessed: Yes Dentition: Dentures-good fit (upper dentures removed) Neurological Assessment Level of Consciousness: Awake, Alert and Appropriate Anesthesia Plan Anesthesia Risk discussed: Yes Anesthesia Plan: Verified ASA Class: III Anesthesia Type: MAC
[2024-03-30 12:09] VITALS: O2SAT 98
--- NOTE | 2024-03-30 12:12 | EXP.HP ---
History of Present Illness *Admission Date: 03/30/24 *Reason for visit:: Globus/dysphagia/GERD/history of ulcers *History of present illness: Mrs. Cancino is an 79-year-old female who is here for diagnostic EGD secondary to globus, dysphagia, GERD and prior history of gastric ulcers with H. pylori. The examination is deemed medically necessary for EGD. The patient has been seen, interviewed and examined prior to the procedure by both myself and the anesthesia provider. [facility] Disclaimer: The information contained in this section may have been updated after the patient was seen, as this information can be updated by other users. Medical History (Updated 03/30/24 @ 10:47 by Ethel Uribe RN) Stomach ulcer Chronic kidney disease Sleep apnea History of COVID-19 History of anemia Pacemaker Normal colonoscopy Osteoarthritis GERD (gastroesophageal reflux disease) Cardiomyopathy Hypothyroidism HTN (hypertension) HLD (hyperlipidemia) A-fib Arrhythmia Surgical History History of surgical removal of left nipple Family History (Updated 03/30/24 @ 10:47 by Ethel Uribe RN) Other A-fib Bone cancer Breast cancer Cancer Colon cancer Heart disease Hypertension Leukemia Social History Smoking Status: Never smoker alcohol intake: never substance use type: denies use current occupational status: retired Travel in the last 8 weeks: None housing: house caffeine: Yes Have you lived/traveled outside US in past 30 days?: No Contact w/someone who lives/traveled outside US past 30 days?: No Exposure to someone with infectious disease in past 14 days?: No Do you have a fever (greater than 100.4 F or 38 C)?: No Have you tested positive for COVID-19: Yes Exposed to someone with COVID-19 in past 14 days?: No Do you have a sore throat?: No Do you have a cough?: No Do you have any weakness?: No Are you experiencing any nausea/vomitting?: No Do you have any diarrhea?: No Are you experiencing any unusual bleeding?: No Do you have any muscle aches/pain?: No Do you have any abdominal pain?: No Are you experiencing loss of taste or smell?: No Other Medical History Have you received the Flu Vaccine for this season: Yes Have you received the Pneumonia Vaccine: Yes Review of Systems Review of Systems Review of systems (narrative): Negative *Cardiovascular Comments: Negative *Gastrointestinal Comments: Negative *Genitourinary Comments: Negative *Musculoskeletal Comments: Negative *Neurologic Comments: Negative Meds Home Medications and Allergies Home Medications ?Medication ?Instructions ?Recorded ?Confirmed ?Type aspirin 81 mg tablet,delayed 81 mg PO DAILY Blood thinner 12/09/17 03/30/24 History release (Adult Low Dose Aspirin) atorvastatin 10 mg tablet 5 mg PO DAILY Cholesterol 12/09/17 03/30/24 History carvedilol 25 mg tablet (Coreg) 25 mg PO BID irregular heartbeat 12/09/17 03/30/24 History levothyroxine 50 mcg capsule 50 mcg PO DAILY thyroid 12/09/17 03/30/24 History lisinopril 20 mg tablet 20 mg PO DAILY blood pressure 12/09/17 03/30/24 History magnesium oxide 400 mg (241.3 mg 400 mg PO BID Supplement 12/09/17 03/30/24 History magnesium) tablet mexiletine 150 mg capsule 150 mg PO TID irregular heartbeat 12/09/17 03/30/24 History spironolactone 25 mg tablet 25 mg PO DAILY Fluid 12/09/17 03/30/24 History furosemide 20 mg tablet 20 mg PO DAILYP PRN fluid 10/19/20 03/30/24 History multivitamin 1 each PO DAILY Supplement 10/19/20 03/30/24 History potassium chloride 10 mEq 10 meq PO DAILYP PRN supplement 10/19/20 03/30/24 History capsule,extended release cholecalciferol (vitamin D3) 250 500 mcg PO DAILY 01/20/24 03/30/24 History mcg (10,000 unit) tablet ferrous sulfate 325 mg (65 mg 325 mg PO DAILY 01/20/24 03/30/24 History iron) tablet fluticasone propionate 50 1 spray intranasal DAILY 01/20/24 03/30/24 History mcg/actuation nasal spray,suspension montelukast 10 mg tablet 10 mg PO DAILY 01/20/24 03/30/24 History omeprazole 40 mg capsule,delayed 40 mg PO BID 01/20/24 03/30/24 History release New Prescriptions to Start Prescriptions: Allergies Allergy/AdvReac Type Severity Reaction Status Date / Time No Known Allergies Allergy Verified 03/30/24 10:31 Exam Data for Last 24 hours Vital signs and Labs for Last 24 Hours: Temp Pulse Resp BP Pulse Ox O2 Del Method O2 Flow Rate 97.5 F L 89 16 116/65 98 Nasal Cannula 6 03/30/24 10:35 03/30/24 10:35 03/30/24 10:35 03/30/24 10:35 03/30/24 10:35 03/30/24 12:09 03/30/24 12:09 I & O for Last 24 hours: Intake & Output 03/27/24 03/28/24 03/29/24 03/30/24 23:59 23:59 23:59 23:59 Weight 148 lb *Routine HEENT Exam Head: Present normocephalic Eye: Present EOMI and PERRL ENT: Present mucous membranes moist *Routine Neck Exam Neck: Present supple *Routine Respiratory Exam Respiratory: Present CTA bilaterally *Routine Cardiovascular Exam Cardiovascular: Present RRR *Routine Abdominal Exam Abdominal: Present soft and normoactive bowel sounds; Absent tenderness *Routine Rectal Exam Rectal:: deferred *Routine Genitalia Exam Genitalia:: deferred *Routine Extremities Exam Extremities: Absent cyanosis, clubbing or edema *Routine Skin Exam Skin: Present warm; Absent rash *Routine Neurological Exam Neurological: Present alert and oriented X3 Assessment and Plan *Assessment and plan (1) Dysphagia: Status: Acute Category: Medical Code(s): R13.10 - Dysphagia, unspecified (2) Globus sensation: Status: Acute Category: Medical Code(s): R09.A2 - Foreign body sensation, throat (3) Chronic GERD: Status: Acute Category: Medical Code(s): K21.9 - Gastro-esophageal reflux disease without esophagitis (4) History of Helicobacter pylori infection: Status: Acute Category: Medical Code(s): Z86.19 - Personal history of other infectious and parasitic diseases (5) History of duodenal ulcer: Status: Acute Category: Medical Code(s): Z87.19 - Personal history of other diseases of the digestive system (6) Hoarseness: Status: Acute Category: Medical Code(s): R49.0 - Dysphonia Plan A/P: 1. Dysphagia/globus sensation with chronic GERD is the preprocedural diagnosis. The patient also has a history of duodenal ulcers with H. pylori the patient will be anesthetized/sedated using MAC sedation. The patient has been seen and examined. Cardiac and lung assessment prior to the examination is stable. Proceed with planned diagnostic EGD
--- NOTE | 2024-03-30 12:14 | P.PCN_ITS ---
[facility] Procedure Note Date: 03/30/24 Time: 12:19 Procedure Note:: Upper Endoscopy Procedure Report: Esophagogastroduodenoscopy with cold biopsies and TTS balloon dilation Endoscopost: Darci Lima II, MD Referring Physician: With cold biopsies and TTS balloon dilation Date of Procedure: Izabella Tanner DO Equipment: Olympus GIF 190 standard upper endoscope Sedation: MAC sedation Indications: Mrs. Cancino is an 79-year-old female with longstanding GERD. She has been on omeprazole twice daily. She did have H. pylori infection treated 15 to 20 years ago with a prior history of duodenal ulcers. She does have some ongoing heartburn, reflux and pyrosis. She also gets some dysphagia to pills. She does get occasional choking on fluids. She reports some globus sensation and intermittent hoarseness. Procedure: Prior to the procedure, a history and physical exam was performed, and patient's medications and allergies were reviewed. The risks, benefits and alternatives of the sedation and procedure were discussed with the patient. All questions were answered and informed consent was obtained. The patient was brought to the procedure room. Patient identification and proposed procedure were verified by the physician and the nurse. The patient was placed in a left lateral decubitus position and the scope was passed under direct vision. Throughout the procedure, the patient's blood pressure, pulse, and oxygen saturations were monitored continuously. The upper GI endoscopy was accomplished without difficulty. The patient tolerated the procedure well. Findings: The scope was passed directly into the upper esophagus and advanced to the third portion of the duodenum. The post bulbar duodenum and duodenal bulb were normal with normal mucosa and conniventes. The scope was withdrawn through a normal duodenal bulb and pylorus into the stomach. There was minimal reactive gastropathy antrum. There was mild chronic gastritis of the body and fundus of the stomach. Upon retroflexion there was a very small sliding 1 to 2 cm hiatal hernia. There did appear to be some very faint fundic varices. Biopsies were taken along the lesser curvature to rule out H. pylori. The scope was then withdrawn into the esophagus. There was no evidence of reflux esophagitis or Sanchez's. There appeared to be very faint small esophageal varices. There were tertiary contractions and evidence of moderate esophageal dysmotility. The entire esophagus was dilated to 60 [place]/20 mm with a TTS hydrostatic balloon. there was mild resistance at the cricopharyngeus. The remainder of the esophageal mucosa was normal. Impression: 1. Cricopharyngeal spasm status post dilation to 20 mm 2. Nonerosive GERD with moderate esophageal dysmotility and very small sliding hiatal hernia 3. Mild chronic gastritis status post biopsies to rule out H. pylori 4. Very faint gastroesophageal varices Plan: I will discuss the findings with the patient and family. I do feel that she may benefit from herbal Iberogast. I will obtain hepatic fibrotic markers.
[2024-03-30 12:24] VITALS: BP 118/62; PULSE 72; RESP 14; TEMP 36.2; O2SAT 98
[2024-03-30 12:34] VITALS: BP 109/65; PULSE 65; RESP 15; O2SAT 98
[2024-03-30 12:44] VITALS: BP 123/69; PULSE 73; RESP 17; O2SAT 97
[2024-03-30 12:54] VITALS: BP 116/74; PULSE 68; RESP 18; O2SAT 98
[2024-04-01 00:05] LABS: ALT (SGPT) P5P 22 IU/L (0-40); AST (SGOT) P5P 23 IU/L (0-40); Alpha 2-Macroglobulins, Qn 259 mg/dL (110-276); Apolipoprotein A-1 111 mg/dL (114-214); Bilirubin, Total 0.3 mg/dL (0.0-1.2); Cholesterol, Total 121 mg/dL (100-199); Fibrosis Stage F1-F2 (.); GGT 29 IU/L (0-60); Glucose 87 mg/dL (70-99); Haptoglobin 198 mg/dL (41-333); NASH Score 0.66 (0.00-0.25); Triglycerides 141 mg/dL (0-149)
== END 2024-03-30 13:05 | disposition home or self-care (01) ==
PROVIDERS: PCP Family Medicine; Visit Provider Internal Medicine Gastroenterology
PROC: 0DJ08ZZ Inspection of Upper Intestinal Tract, Via Natural or Artificial Opening Endoscopic (ICD-10-PCS; CPT 43239; principal; 2024-03-30 11:30)
DX: R13.10 Dysphagia, unspecified (principal); R09.A2 Foreign body sensation, throat; K21.9 Gastro-esophageal reflux disease without esophagitis; Z86.19 Personal history of other infectious and parasitic diseases; Z87.19 Personal history of other diseases of the digestive system; R49.0 Dysphonia; K31.9 Disease of stomach and duodenum, unspecified; K29.70 Gastritis, unspecified, without bleeding; K44.9 Diaphragmatic hernia without obstruction or gangrene; K22.4 Dyskinesia of esophagus; J39.2 Other diseases of pharynx; I86.4 Gastric varices
CPT/HCPCS: 43239; 43249; C1726; J7120

== ENCOUNTER 2024-07-15 10:30 | Outpatient (CLI) | payer MEDICARE, OTHER, SELFPAY ==
--- OUTSIDE RECORDS SUMMARY | 2024-07-15 10:34 | XMS_ITS | Data Portability ---
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 Plan of Treatment Reminders Order Date Submit Date Provider Last Modified By Organization Details Last Modified Time Details Appointments OV EST 30 2024 09:30A M Izabella Diez PA-C Not available Not available Not available Lab CBC w/ auto diff 2024 025 [facility], [address] , [place], [address], 04/29/2024 08:07:44 CMP, serum or plasma 2024 025 [facility], [address] , [place], [address], 04/29/2024 08:07:44 iron + TIBC + ferritin, serum [address] [facility] Not available 04/29/2024 08:07:44 iron saturatio n, serum 2024 025 [facility], [address] [place] [address] [place], [address], 04/29/2024 08:07:44 CBC w/ auto diff 2023 024 [facility], [address], [place], [address], 12/25/2023 07:55:25 CMP, serum or plasma 2023 024 [facility], [address] [place], [address], 12/25/2023 07:55:26 iron + TIBC + ferritin, serum 2023 024 [email or web address] Not available 12/25/2023 07:55:26 iron saturatio n, serum 2023 024 [facility], [address] [place] [address] [place], [address], 12/25/2023 07:55:26 CBC w/ auto diff 2023 024 [facility], [address] [place], [address], 08/23/2023 08:58:54 CMP, serum or plasma 2023 024 [facility], [address] [place], [address], 08/23/2023 08:58:54 iron + TIBC + ferritin, serum 2023 024 [email or web address] Not available 08/23/2023 08:58:54 iron saturatio n, serum 2023 024 located within [facility], [address] [place] [address] [place], [address], 08/23/2023 08:58:54 erythropo ietin (epo), serum 2022 023 [facility], [address] [place] [address] [place], [address], 02/15/2023 15:10:59 CBC w/ auto diff 2022 023 [facility], [address] , [place], [address], 02/21/2023 10:31:52 CMP, serum or plasma 2022 023 [facility], [address], [place], [address], 02/21/2023 10:31:52 iron + TIBC + ferritin, serum 2022 023 [email or web address] Not available 02/21/2023 10:31:53 iron saturatio n, serum 2022 023 [facility], [address] [place] [address] [place], [address], 02/21/2023 10:31:53 vitamin B12 + folate, serum or blood 2022 023 [facility], [address] [place] [address] [place], [address], 02/21/2023 10:31:53 TSH, serum or plasma 2022 023 [facility], [address] [place] [address] [place], [address], 02/21/2023 10:31:53 CBC w/ auto diff 2022 023 [facility], [address] [place], [address], 11/05/2022 08:56:07 CMP, serum or plasma 2022 023 [facility], [address] , [place], [address], 11/05/2022 08:56:07 iron + TIBC + ferritin, serum 2022 023 [email or web address] Not available 11/05/2022 08:56:07 iron saturatio n, serum 2022 023 [email or web address] [address] [place] [address] [place], [address], 11/05/2022 08:56:07 Referral None recorded. Procedures None recorded. Surgeries None recorded. Imaging None recorded. Medication Orders None recorded. Patient TargetsNo targets recorded. Patient InstructionsNo instructions recorded. Reason for Referral None Reported. Results Created Date Observation Date Name Description Value Unit Range Abnormal Flag Note LastModifiedBy Organization Detail LastModifiedTime 10/30/1910/29/2022 CBC W/ AUTO DIFF WBC 5.59 K/uL 4.5-11 .5 Not Available [facility] [address] [place] [address] [place], [address], 10/29/2022 10:58:07 10/30/19 23 10/29/2022 CBC W/ AUTO DIFF RBC 3.81 M/uL 4.0-5. 4 low Not Available [facility]) [address] [place] [address] [place], [address], 10/29/2022 10:58:07 10/30/19 23 10/29/2022 CBC W/ AUTO DIFF HGB 11.1 g/dL 12.0-1 5.0 low Not Available [facility]) [address] [place] [address] [place], [address], 10/29/2022 10:58:07 10/30/1910/29/2022 CBC W/ AUTO DIFF HCT 33.3 % 35-49 low Not Available [facility]) [address] [place] [address] [place], [address], 10/29/2022 10:58:07 10/30/19 23 10/29/2022 CBC W/ AUTO DIFF MCV 87.4 fL 80.0-1 00.0 Not Available [facility]) [address] [place] [address] [place], [address], 10/29/2022 10:58:07 10/30/19 23 10/29/2022 CBC W/ AUTO DIFF MCH 29.1 pg 26.0-3 2.0 Not Available [facility] ([facility]) [address] [place] [address] [place], [address], 10/29/2022 10:58:07 10/30/19 23 10/29/2022 CBC W/ AUTO DIFF MCHC 33.3 g/dL 32.0-3 6.0 Not Available [facility]) [address] [place] [address] [place], [address], 10/29/2022 10:58:07 10/30/19 23 10/29/2022 CBC W/ AUTO DIFF RDW 13.8 % 11.5-1 4.5 Not Available [facility]) [address] [place] [address] [place], [address], 10/29/2022 10:58:07 10/30/19 23 10/29/2022 CBC W/ AUTO DIFF platelet count 202 K/uL 142-42 4 Not Available [facility]) [address] [place] [address] [place], [address], 10/29/2022 10:58:07 10/30/19 23 10/29/2022 CBC W/ AUTO DIFF MPV 10.5 fL 6.8-10 .2 high Not Available [facility]) [address] [place] [address] [place], [address], 10/29/2022 10:58:07 10/30/19 23 10/29/2022 CBC W/ AUTO DIFF neutrophil % 39.2 % 50-70 low Not Available [facility]) [address] [place] [address] [place], [address], 10/29/2022 10:58:07 10/30/19 23 10/29/2022 CBC W/ AUTO DIFF lymphocyte % 33.3 % 18.0-4 2.0 Not Available [facility]) [address] [place], [address], 10/29/2022 10:58:07 10/30/19 23 10/29/2022 CBC W/ AUTO DIFF monocyte % 17.2 % 2.0-11 .0 high Not Available [facility]) [address] [place] [address] [place], [address], 10/29/2022 10:58:07 10/30/19 23 10/29/2022 CBC W/ AUTO DIFF eosinophil % 8.8 % 1.0-3. 0 high Not Available [facility]) [address] [place] [address] [place], [address], 10/29/2022 10:58:07 10/30/19 23 10/29/2022 CBC W/ AUTO DIFF basophil % 1.1 % 0.0-2. 0 Not Available [facility]) [address] [place] [address] [place], [address], 10/29/2022 10:58:07 10/30/19 23 10/29/2022 CBC W/ AUTO DIFF immature granulocytes % 0.4 % 0.0-0. 8 Not Available [facility]) [address] [place] [address] [place], [address], 10/29/2022 10:58:07 10/30/19 23 10/29/2022 CBC W/ AUTO DIFF nucleated red blood cells % 0.0 % Not Available [facility]) [address] [place] [address] [place], [address], 10/29/2022 10:58:07 10/30/19 23 10/29/2022 CBC W/ AUTO DIFF neutrophil # 2.20 K/uL Not Available [facility]) [address] [place] [address] [place], [address], 10/29/2022 10:58:07 10/30/19 23 10/29/2022 CBC W/ AUTO DIFF lymphocyte # 1.86 K/uL Not Available [facility]) [address] [place] [address] [place], [address], 10/29/2022 10:58:07 10/30/19 23 10/29/2022 CBC W/ AUTO DIFF monocyte # 0.96 K/uL Not Available [facility]) [address] [place] [address] [place], [address], 10/29/2022 10:58:07 10/30/19 23 10/29/2022 CBC W/ AUTO DIFF eosinophil # 0.49 K/uL Not Available [facility]) [address] [place] [address] [place], [address], 10/29/2022 10:58:07 10/30/19 23 10/29/2022 CBC W/ AUTO DIFF basophil # 0.06 K/uL Not Available [facility]) [address] [place] [address] [place], [address], 10/29/2022 10:58:07 10/30/19 23 10/29/2022 CBC W/ AUTO DIFF immature gramulocytes # 0.02 K/uL Not Available [facility]) [address] [place] [address] [place], [address], 10/29/2022 10:58:07 10/30/19 23 10/29/2022 CBC W/ AUTO DIFF nucleated red blood cells # 0.00 k/uL Not Available [facility] [address] [place] [address] [place], [address], 10/29/2022 10:58:07 10/30/19 23 10/29/2022 CBC W/ AUTO DIFF manual differential NO Not Available [facility]) [address] [place] [address] [place], [address], 10/29/2022 10:58:07 10/30/19 23 10/29/2022 CBC W/ AUTO DIFF note Unles s other hernandez noted testi ng per[facility]med at: [facility] [address] [place] [address] Amilcar cho MD Not Available [facility]) [address] [place], [address], 10/29/2022 10:58:07 10/30/19 23 10/29/2022 COMP METAB OLIC PANEL sodium 139 mmol/ L 137-14 7 Not Available [facility]) [address] [place] [address] [place], [address], 10/29/2022 13:11:26 10/30/19 23 10/29/2022 COMP METAB OLIC PANEL potassium 4.7 mmol/ L 3.5-5. 1 Not Available [facility]) [address] [place] [address] [place], [address], 10/29/2022 13:11:26 10/30/19 23 10/29/2022 COMP METAB OLIC PANEL chloride 103 mmol/ L 98-110 Not Available [facility]) [address] [place] [address] [place], [address], 10/29/2022 13:11:26 10/30/19 23 10/29/2022 COMP METAB OLIC PANEL carbon dioxide 25 mmol/ L 21-30 Not Available [facility]) [address] [place] [address] [place], [address], 10/29/2022 13:11:26 10/30/19 23 10/29/2022 COMP METAB OLIC PANEL anion gap 11 mmol/ L 6-14 Not Available [facility]) [address] [place] [address] [place], [address], 10/29/2022 13:11:26 10/30/19 23 10/29/2022 COMP METAB OLIC PANEL glucose 95 mg/dL 70-115 Not Available [facility]) [address] [place] [address] [place], [address], 10/29/2022 13:11:26 10/30/19 23 10/29/2022 COMP METAB OLIC PANEL BUN 18 mg/dL 7-17 high Not Available [facility]) [address] [place] [address] [place], [address], 10/29/2022 13:11:26 10/30/19 23 10/29/2022 COMP METAB OLIC PANEL creatinine 1.1 mg/dL 0.5-1. 5 Not Available [facility]) [address] [place] [address] [place], [address], 10/29/2022 13:11:26 10/30/19 23 10/29/2022 COMP METAB OLIC PANEL BUN/creatini ne ratio 16 ratio 10-20 Not Available [facility]) [address] [place] [address] [place], [address], 10/29/2022 13:11:26 10/30/19 23 10/29/2022 COMP METAB OLIC PANEL glom filtration rate TNP mL/mi n >60- GFR has only been valid ated for patie nts 18-70 years of age. Not Available [facility]) [address] [place] [address] [place], [address], 10/29/2022 13:11:26 10/30/19 23 10/29/2022 COMP METAB OLIC PANEL osmolality (calculated) 291 mosmo l/kg 275-30 1 OSMOL ALITY IS A CALCU LATIO N UTILI ZING THE SERUM /PLAS MA SODIU M, GLUCO SE AND UREA NITRO GEN (BUN) LEVEL S. FOR THE MOST ACCUR ATE RESUL T A MEASU RED SERUM OSMOL ALITY IS SUGGE STED. Not Available [facility]) [address] [place] [address] [place], [address], 10/29/2022 13:11:26 10/30/19 23 10/29/2022 COMP METAB OLIC PANEL total protein 7.6 g/dL 6.2-8. 2 Not Available [facility]) [address] [place] [address] [place], [address], 10/29/2022 13:11:26 10/30/19 23 10/29/2022 COMP METAB OLIC PANEL albumin 4.7 g/dL 3.5-5. 0 Not Available [facility]) [address] [place] [address] [place], [address], 10/29/2022 13:11:26 10/30/19 23 10/29/2022 COMP METAB OLIC PANEL calcium 9.4 mg/dL 8.5-10 .8 Not Available [facility]) [address] [place] [address] [place], [address], 10/29/2022 13:11:26 10/30/19 23 10/29/2022 COMP METAB OLIC PANEL bilirubin total 0.5 mg/dL 0.2-1. 3 Not Available [facility]) [address] [place] [address] [place], [address], 10/29/2022 13:11:26 10/30/19 23 10/29/2022 COMP METAB OLIC PANEL AST (SGOT) 30 IU/L 14-36 Not Available [facility]) [address] [place] [address] [place], [address], 10/29/2022 13:11:26 10/30/19 23 10/29/2022 COMP METAB OLIC PANEL ALT (SGPT) 27 IU/L 0-35 Pleas e note new refer ence inter harika for ALT. Due to a recen t manuf actur er metho dolog y ortiz e, the refer ence inter harika for ALT is lower effec tive June 09, 2020. Not Available [facility] [address] [place] [address] [place], [address], 10/29/2022 13:11:26 10/30/19 23 10/29/2022 COMP METAB OLIC PANEL alk phosphatase 42 IU/L 38-126 Not Available [facility]) [address] [place] [address] [place], [address], 10/29/2022 13:11:26 10/30/19 23 10/29/2022 COMP METAB OLIC PANEL note Unles s other hernandez noted testi ng perfo rmed at: [facility] [address] [place] [address] Amilcar cho MD Not Available [facility]) [address] [place] [address] [place], [address], 10/29/2022 13:11:26 10/30/19 23 10/29/2022 ELIJAH TIN ferritin 36 NG/mL 3-105 Not Available [facility]) [address] [place] [address] [place], [address], 10/29/2022 13:49:48 10/30/19 23 10/29/2022 ELIJAH TIN note Unles s other hernandez noted testi ng perfo rmed at: [facility] [address] [place] [address] Amilcar cho MD Not Available [facility]) [address] [place] [address] [place], [address], 10/29/2022 13:49:48 10/30/19 23 10/29/2022 IRON STUDY W FE/TI BC/UI BC/%S AT iron 107 ug/dL 37-170 Not Available [facility]) [address] [place] [address] [place], [address], 10/29/2022 16:05:21 10/30/19 23 10/29/2022 IRON STUDY W FE/TI BC/UI BC/%S AT total iron bind cap. 412 ug/dL 265-49 7 Not Available [facility]) [address] [place] [address] [place], [address], 10/29/2022 16:05:21 10/30/19 23 10/29/2022 IRON STUDY W FE/TI BC/UI BC/%S AT unsaturated iron binding cap 305 ug/dL 150-37 5 Not Available [facility]) [address] [place] [address] [place], [address], 10/29/2022 16:05:21 10/30/19 23 10/29/2022 IRON STUDY W FE/TI BC/UI BC/%S AT % saturation 26 % 15-55 Not Available [facility]) [address] [place] [address] [place], [address], 10/29/2022 16:05:21 10/30/19 23 10/29/2022 IRON STUDY W FE/TI BC/UI BC/%S AT note Unles s other hernandez noted testi ng perfo rmed at: [facility] [address] [place] [address] Amilcar cho MD Not Available [facility]) [address] [place] [address] [place], [address], 10/29/2022 16:05:21 02/15/20 23 02/14/2023 CBC W/ AUTO DIFF WBC 6.60 K/uL 4.5-11 .5 Not Available [facility]) [address] [place] [address] [place], [address], 02/14/2023 14:16:32 02/15/20 23 02/14/2023 CBC W/ AUTO DIFF RBC 3.90 M/uL 4.0-5. 4 low Not Available [facility]) [address] [place] [address] [place], [address], 02/14/2023 14:16:32 02/15/20 23 02/14/2023 CBC W/ AUTO DIFF HGB 11.3 g/dL 12.0-1 5.0 low Not Available [facility]) [address] [place] [address] [place], [address], 02/14/2023 14:16:32 02/15/20 23 02/14/2023 CBC W/ AUTO DIFF HCT 34.3 % 35-49 low Not Available [facility]) [address] [place] [address] [place], [address], 02/14/2023 14:16:32 02/15/20 23 02/14/2023 CBC W/ AUTO DIFF MCV 87.9 fL 80.0-1 00.0 Not Available [facility]) [address] [place] [address] [place], [address], 02/14/2023 14:16:32 02/15/20 23 02/14/2023 CBC W/ AUTO DIFF MCH 29.0 pg 26.0-3 2.0 Not Available [facility]) [address] [place] [address] [place], [address], 02/14/2023 14:16:32 02/15/20 23 02/14/2023 CBC W/ AUTO DIFF MCHC 32.9 g/dL 32.0-3 6.0 Not Available [facility]) [address] [place] [address] [place], [address], 02/14/2023 14:16:32 02/15/20 23 02/14/2023 CBC W/ AUTO DIFF RDW 13.5 % 11.5-1 4.5 Not Available [facility]) [address] [place] [address] [place], [address], 02/14/2023 14:16:32 02/15/20 23 02/14/2023 CBC W/ AUTO DIFF platelet count 216 K/uL 142-42 4 Not Available [facility] [address] [place] [address] [place], [address], 02/14/2023 14:16:32 02/15/20 23 02/14/2023 CBC W/ AUTO DIFF MPV 11.3 fL 6.8-10 .2 high Not Available [facility]) [address] [place] [address] [place], [address], 02/14/2023 14:16:32 02/15/20 23 02/14/2023 CBC W/ AUTO DIFF neutrophil % 49.3 % 50-70 low Not Available [facility]) [address] [place] [address] [place], [address], 02/14/2023 14:16:32 02/15/20 23 02/14/2023 CBC W/ AUTO DIFF lymphocyte % 30.6 % 18.0-4 2.0 Not Available [facility] [address] [place] [address] [place], [address], 02/14/2023 14:16:32 02/15/20 23 02/14/2023 CBC W/ AUTO DIFF monocyte % 14.2 % 2.0-11 .0 high Not Available [facility]) [address] [place] [address] [place], [address], 02/14/2023 14:16:32 02/15/20 23 02/14/2023 CBC W/ AUTO DIFF eosinophil % 4.8 % 1.0-3. 0 high Not Available [facility]) [address] [place] [address] [place], [address], 02/14/2023 14:16:32 02/15/20 23 02/14/2023 CBC W/ AUTO DIFF basophil % 0.6 % 0.0-2. 0 Not Available [facility]) [address] [place] [address] [place], [address], 02/14/2023 14:16:32 02/15/20 23 02/14/2023 CBC W/ AUTO DIFF immature granulocytes % 0.5 % 0.0-0. 8 Not Available [facility]) [address] [place] [address] [place], [address], 02/14/2023 14:16:32 02/15/20 23 02/14/2023 CBC W/ AUTO DIFF nucleated red blood cells % 0.0 % Not Available [facility]) [address] [place] [address] [place], [address], 02/14/2023 14:16:32 02/15/20 23 02/14/2023 CBC W/ AUTO DIFF neutrophil # 3.25 K/uL Not Available [facility]) [address] [place] [address] [place], [address], 02/14/2023 14:16:32 02/15/20 23 02/14/2023 CBC W/ AUTO DIFF lymphocyte # 2.02 K/uL Not Available [facility]) [address] [place] [address] [place], [address], 02/14/2023 14:16:32 02/15/20 23 02/14/2023 CBC W/ AUTO DIFF monocyte # 0.94 K/uL Not Available [facility]) [address] [place] [address] [place], [address], 02/14/2023 14:16:32 02/15/20 23 02/14/2023 CBC W/ AUTO DIFF eosinophil # 0.32 K/uL Not Available [facility] [address] [place] [address] [place], [address], 02/14/2023 14:16:32 02/15/20 23 02/14/2023 CBC W/ AUTO DIFF basophil # 0.04 K/uL Not Available [facility]) [address] [place] [address] [place], [address], 02/14/2023 14:16:32 02/15/20 23 02/14/2023 CBC W/ AUTO DIFF immature gramulocytes # 0.03 K/uL Not Available [facility]) [address] [place] [address] [place], [address], 02/14/2023 14:16:32 02/15/20 23 02/14/2023 CBC W/ AUTO DIFF nucleated red blood cells # 0.00 k/uL Not Available [facility]) [address] [place] [address] [place], [address], 02/14/2023 14:16:32 02/15/20 23 02/14/2023 CBC W/ AUTO DIFF manual differential NO Not Available [facility]) [address] [place] [address] [place], [address], 02/14/2023 14:16:32 02/15/20 23 02/14/2023 CBC W/ AUTO DIFF note Unles s other hernandez noted testi ng perfo rmed at: [facility] [address] [place] [address] Amilcar cho MD Not Available [facility]) [address] [place] [address] [place], [address], 02/14/2023 14:16:32 02/15/20 23 02/14/2023 COMP METAB OLIC PANEL sodium 140 mmol/ L 137-14 7 Not Available [facility]) [address] [place] [address] [place], [address], 02/14/2023 17:36:38 02/15/20 23 02/14/2023 COMP METAB OLIC PANEL potassium 4.7 mmol/ L 3.5-5. 1 Not Available [facility] [address] [place] [address] [place], [address], 02/14/2023 17:36:38 02/15/20 23 02/14/2023 COMP METAB OLIC PANEL chloride 107 mmol/ L 98-110 Not Available [facility]) [address] [place], [address], 02/14/2023 17:36:38 02/15/20 23 02/14/2023 COMP METAB OLIC PANEL carbon dioxide 23 mmol/ L 21-30 Not Available [facility] [address] [place], [address], 02/14/2023 17:36:38 02/15/20 23 02/14/2023 COMP METAB OLIC PANEL anion gap 10 mmol/ L 6-14 Not Available [facility] [address] [place], [address], 02/14/2023 17:36:38 02/15/20 23 02/14/2023 COMP METAB OLIC PANEL glucose 88 mg/dL 70-115 Not Available [facility]) [address] [place] [address] [place], [address], 02/14/2023 17:36:38 02/15/20 23 02/14/2023 COMP METAB OLIC PANEL BUN 24 mg/dL 7-17 high Not Available [facility]) [address] [place], [address], 02/14/2023 17:36:38 02/15/20 23 02/14/2023 COMP METAB OLIC PANEL creatinine 1.3 mg/dL 0.5-1. 5 Not Available [facility] [address] [place], [address], 02/14/2023 17:36:38 02/15/20 23 02/14/2023 COMP METAB OLIC PANEL BUN/creatini ne ratio 18 ratio 10-20 Not Available [facility]) [address] [place] [address] [place], [address], 02/14/2023 17:36:38 02/15/20 23 02/14/2023 COMP METAB OLIC PANEL glom filtration rate TNP mL/mi n >60- GFR has only been valid ated for patie nts 18-70 years of age. Not Available [facility] ([facility]-Op [facility]) [address] [place] [address] [place], [address], 02/14/2023 17:36:38 02/15/20 23 02/14/2023 COMP METAB OLIC PANEL osmolality (calculated) 295 mosmo l/kg 275-30 1 OSMOL ALITY IS A CALCU LATIO N UTILI ZING THE SERUM /PLAS MA SODIU M, GLUCO SE AND UREA NITRO GEN (BUN) LEVEL S. FOR THE MOST ACCUR ATE RESUL T A MEASU RED SERUM OSMOL ALITY IS SUGGE STED. Not Available [facility] ([facility]-Op [facility]) [address] [place] [address] [place], [address], 02/14/2023 17:36:38 02/15/20 23 02/14/2023 COMP METAB OLIC PANEL total protein 7.4 g/dL 6.2-8. 2 Not Available [facility] ([facility]) [address] [place] [address] [place], [address], 02/14/2023 17:36:38 02/15/20 23 02/14/2023 COMP METAB OLIC PANEL albumin 4.3 g/dL 3.5-5. 0 Not Available [facility] ([facility]Op [facility]) [address] [place] [address] [place], [address], 02/14/2023 17:36:38 02/15/20 23 02/14/2023 COMP METAB OLIC PANEL calcium 9.2 mg/dL 8.5-10 .8 Not Available [facility] ([facility]Op [facility]) [address] [place] [address] [place], [address], 02/14/2023 17:36:38 02/15/20 23 02/14/2023 COMP METAB OLIC PANEL bilirubin total 0.4 mg/dL 0.2-1. 3 Not Available [facility] ([facility]Op [facility]) [address] [place] [address] [place], [address], 02/14/2023 17:36:38 02/15/20 23 02/14/2023 COMP METAB OLIC PANEL AST (SGOT) 30 IU/L 14-36 Not Available [facility] ([facility]Op [facility]) [address] [place] [address] [place], [address], 02/14/2023 17:36:38 02/15/20 23 02/14/2023 COMP METAB OLIC PANEL ALT (SGPT) 25 IU/L 0-35 Pleas e note new refer ence inter harika for ALT. Due to a recen t manuf actur er metho dolog y ortiz e, the refer ence inter harika for ALT is lower effec tive June 09, 2020. Not Available [facility] ([facility]Op [facility]) [address] [place] [address] [place], [address], 02/14/2023 17:36:38 02/15/20 23 02/14/2023 COMP METAB OLIC PANEL alk phosphatase 55 IU/L 38-126 Not Available [facility] (Pre[facility]Op [facility]) [address] [place] [address] [place], [address], 02/14/2023 17:36:38 02/15/20 23 02/14/2023 COMP METAB OLIC PANEL note Unles s other hernandez noted testi ng perfo rmed at: [facility] [address] [place] [address] Amilcar cho MD Not Available [facility] ([facility]) [address] [place] [address] [place], [address], 02/14/2023 17:36:38 02/15/20 23 02/14/2023 ELIJAH TIN ferritin 38 NG/mL 3-105 Not Available [facility] ([facility]) [address] [place] [address] [place], [address], 02/14/2023 18:08:54 02/15/20 23 02/14/2023 ELIJAH TIN note Unles s other hernandez noted testi ng perfo rmed at: [facility] [address] [place] [address] Amilcar cho MD Not Available [facility] ([facility]) [address] [place] [address] [place], [address], 02/14/2023 18:08:54 02/15/20 23 02/14/2023 IRON STUDY W FE/TI BC/UI BC/%S AT iron 110 ug/dL 37-170 Not Available [facility] ([facility]) [address] [place] [address] [place], [address], 02/14/2023 18:08:55 02/15/20 23 02/14/2023 IRON STUDY W FE/TI BC/UI BC/%S AT total iron bind cap. 382 ug/dL 265-49 7 Not Available [facility] ([facility]) [address] [place] [address] [place], [address], 02/14/2023 18:08:55 02/15/20 23 02/14/2023 IRON STUDY W FE/TI BC/UI BC/%S AT unsaturated iron binding cap 272 ug/dL 150-37 5 Not Available [facility] ([facility]Op [facility]) [address] [place] [address] [place], [address], 02/14/2023 18:08:55 02/15/20 23 02/14/2023 IRON STUDY W FE/TI BC/UI BC/%S AT % saturation 29 % 15-55 Not Available [facility] ([facility]) [address] [place] [address] [place], [address], 02/14/2023 18:08:55 02/15/20 23 02/14/2023 IRON STUDY W FE/TI BC/UI BC/%S AT note Unles s other hernandez noted testi ng perfo rmed at: [facility] [address] [place] [address] Amilcar cho MD Not Available [facility] ([facility]) [address] [place] [address] [place], [address], 02/14/2023 18:08:55 02/15/20 23 02/14/2023 TSH thyroid stim hormone 2.30 uIU/m L 0.465- 4.68 Not Available [facility] ([facility]) [address] [place] [address] [place], [address], 02/14/2023 18:11:03 02/15/20 23 02/14/2023 TSH note Unles s other hernandez noted testi ng perfo rmed at: [facility] [address] [place] [address] Amilcar cho MD Not Available [facility] ([facility]) [address] [place] [address] [place], [address], 02/14/2023 18:11:03 02/15/20 23 02/14/2023 VITAM IN B12 vitamin B12 711 pg/mL 239-93 1 Not Available [facility] ([facility]) [address] [place] [address] [place], [address], 02/14/2023 19:52:29 02/15/20 23 02/14/2023 VITAM IN B12 folate (folic acid), serum >20.0 NG/mL 2.76- Not Available [facility] ([facility]Op [facility]) [address] [place] [address] [place], [address], 02/14/2023 19:52:29 02/15/20 23 02/14/2023 VITAM IN B12 note Hayley s other hernandez noted testi ng perfo rmed at: [facility] [address] [place] [address] Amilcar cho MD Not Available [facility] ([facility]) [address] [place] [address] [place], [address], 02/14/2023 19:52:29 02/15/20 23 02/14/2023 ERYTH ROPOI ETIN QUANT note Unles s other hernandez noted testi ng per[facility]med [facility] [address] [place] [address] Amilcar cho MD Not Available [facility] ([facility]) [address] [place] [address] [place], [address], 02/15/2023 15:10:59 02/15/20 23 02/15/2023 ERYTH ROPOI ETIN QUANT erythropoiet in 9.0 mIU/m L 2.6-18 .5 Beckm an Coult er UniCe l DxI 800 Immun oassa y Syste m . Value s obtai sammy with diffe rent assay metho ds or kits canno t be used inter ortiz eajon . Resul ts canno t be inter prete d as absol enterprise evide nce of the prese nce or absen ce of steven crow se. Perfo rmed at: [facility] [place] [address] Lab Direc tor: Chase cevallos PhD, Phone : [phone] Not Available [facility] ([facility]) [address] [place] [address] [place], [address], 02/15/2023 15:10:59 08/16/19 24 08/16/2023 CBC NO DIFF (HEMO GRAM) WBC 7.95 K/uL 4.5-11 .5 Not Available [facility] (Pre-Op Clinic) [address] [place] [address] [place], [address], 08/16/2023 13:16:25 08/16/19 24 08/16/2023 CBC NO DIFF (HEMO GRAM) RBC 4.00 M/uL 4.0-5. 4 Not Available [facility] ([facility]Op [facility]) [address] [place] [address] [place], [address], 08/16/2023 13:16:25 08/16/19 24 08/16/2023 CBC NO DIFF (HEMO GRAM) HGB 12.0 g/dL 12.0-1 5.0 Not Available [facility] ([facility]) [address] [place] [address] [place], [address], 08/16/2023 13:16:25 08/16/19 24 08/16/2023 CBC NO DIFF (HEMO GRAM) HCT 35.7 % 35-49 Not Available [facility] ([facility]Op [facility]) [address] [place] [address] [place], [address], 08/16/2023 13:16:25 08/16/19 24 08/16/2023 CBC NO DIFF (HEMO GRAM) MCV 89.3 fL 80.0-1 00.0 Not Available [facility] ([facility]Op [facility]) [address] [place] [address] [place], [address], 08/16/2023 13:16:25 08/16/19 24 08/16/2023 CBC NO DIFF (HEMO GRAM) MCH 30.0 pg 26.0-3 2.0 Not Available [facility] ([facility]Op [facility]) [address] [place] [address] [place], [address], 08/16/2023 13:16:25 08/16/19 24 08/16/2023 CBC NO DIFF (HEMO GRAM) MCHC 33.6 g/dL 32.0-3 6.0 Not Available [facility] ([facility]Op [facility]) [address] [place] [address] [place], [address], 08/16/2023 13:16:25 08/16/19 24 08/16/2023 CBC NO DIFF (HEMO GRAM) RDW 13.4 % 11.5-1 4.5 Not Available [facility] ([facility]Op [facility]) [address] [place] [address] [place], [address], 08/16/2023 13:16:25 08/16/19 24 08/16/2023 CBC NO DIFF (HEMO GRAM) platelet count 210 K/uL 142-42 4 Not Available [facility] ([facility]Op [facility]) [address] [place] [address] [place], [address], 08/16/2023 13:16:25 08/16/19 24 08/16/2023 CBC NO DIFF (HEMO GRAM) MPV 11.0 fL 6.8-10 .2 high Not Available [facility] ([facility]) [address] [place] [address] [place], [address], 08/16/2023 13:16:25 08/16/19 24 08/16/2023 CBC NO DIFF (HEMO GRAM) note Unles s other hernandez noted testi ng perfo rmed at: [facility] [address] [place] [address] Amilcar cho MD Not Available [facility] ([facility]) [address] [place] [address] [place], [address], 08/16/2023 13:16:25 08/16/19 24 08/16/2023 IRON STUDY W FE/TI BC/UI BC/%S AT iron 96 ug/dL 37-170 Not Available [facility] ([facility]) [address] [place] [address] [place], [address], 08/16/2023 14:04:53 08/16/19 24 08/16/2023 IRON STUDY W FE/TI BC/UI BC/%S AT total iron bind cap. 356 ug/dL 265-49 7 Not Available [facility] ([facility]) [address] [place] [address] [place], [address], 08/16/2023 14:04:53 08/16/19 24 08/16/2023 IRON STUDY W FE/TI BC/UI BC/%S AT unsaturated iron binding cap 260 ug/dL 150-37 5 Not Available [facility] ([facility]) [address] [place] [address] [place], [address], 08/16/2023 14:04:53 08/16/19 24 08/16/2023 IRON STUDY W FE/TI BC/UI BC/%S AT % saturation 27 % 15-55 Not Available [facility] ([facility]) [address] [place], [address], 08/16/2023 14:04:53 08/16/19 24 08/16/2023 IRON STUDY W FE/TI BC/UI BC/%S AT note Unles s other hernandez noted testi ng perfo rmed at[facility] [address] [facility] [place] [address] Amilcar cho MD Not Available [facility] ([facility]) [address] [place], [address], 08/16/2023 14:04:53 08/16/19 24 08/16/2023 COMP METAB OLIC PANEL sodium 139 mmol/ L 137-14 7 Not Available [facility] ([facility]) [address] [place] [address] [place], [address], 08/16/2023 14:04:55 08/16/19 24 08/16/2023 COMP METAB OLIC PANEL potassium 4.6 mmol/ L 3.5-5. 1 Not Available [facility] ([facility]) [address] [place] [address] [place], [address], 08/16/2023 14:04:55 08/16/19 24 08/16/2023 COMP METAB OLIC PANEL chloride 100 mmol/ L 98-110 Not Available [facility] ([facility]) [address] [place] [address] [place], [address], 08/16/2023 14:04:55 08/16/19 24 08/16/2023 COMP METAB OLIC PANEL carbon dioxide 25 mmol/ L 21-30 Not Available [facility] ([facility]) [address] [place] [address] [place], [address], 08/16/2023 14:04:55 08/16/19 24 08/16/2023 COMP METAB OLIC PANEL anion gap 14 mmol/ L 6-14 Not Available [facility] ([facility]) [address] [place] [address] [place], [address], 08/16/2023 14:04:55 08/16/19 24 08/16/2023 COMP METAB OLIC PANEL glucose 126 mg/dL 70-115 high Not Available [facility] ([facility]) [address] [place], [address], 08/16/2023 14:04:55 08/16/19 24 08/16/2023 COMP METAB OLIC PANEL BUN 18 mg/dL 7-17 high Not Available [facility] ([facility]) [address] [place] [address] [place], [address], 08/16/2023 14:04:55 08/16/19 24 08/16/2023 COMP METAB OLIC PANEL creatinine 1.1 mg/dL 0.5-1. 5 Not Available [facility] ([facility]) [address] [place] [address] [place], [address], 08/16/2023 14:04:55 08/16/19 24 08/16/2023 COMP METAB OLIC PANEL BUN/creatini ne ratio 16 ratio 10-20 Not Available [facility] ([facility]) [address] [place] [address] [place], [address], 08/16/2023 14:04:55 08/16/19 24 08/16/2023 COMP METAB OLIC PANEL glom filtration rate TNP mL/mi n >60- GFR has only been valid ated for patie nts 18-70 years of age. Not Available [facility] ([facility]) [address] [place] [address] [place], [address], 08/16/2023 14:04:55 08/16/19 24 08/16/2023 COMP METAB OLIC PANEL osmolality (calculated) 293 mosmo l/kg 275-30 1 OSMOL ALITY IS A CALCU LATIO N UTILI ZING THE SERUM /PLAS MA SODIU M, GLUCO SE AND UREA NITRO GEN (BUN) LEVEL S. FOR THE MOST ACCUR ATE RESUL T A MEASU RED SERUM OSMOL ALITY IS SUGGE STED. Not Available [facility] ([facility]) [address] [place] [address] [place], [address], 08/16/2023 14:04:55 08/16/19 24 08/16/2023 COMP METAB OLIC PANEL total protein 7.6 g/dL 6.2-8. 2 Not Available [facility] ([facility]Op [facility]) [address] [place] [address] [place], [address], 08/16/2023 14:04:55 08/16/19 24 08/16/2023 COMP METAB OLIC PANEL albumin 4.7 g/dL 3.5-5. 0 Not Available [facility] ([facility]) [address] [place] [address] [place], [address], 08/16/2023 14:04:55 08/16/19 24 08/16/2023 COMP METAB OLIC PANEL calcium 9.5 mg/dL 8.5-10 .8 Not Available [facility] ([facility]) [address] [place] [address] [place], [address], 08/16/2023 14:04:55 08/16/19 24 08/16/2023 COMP METAB OLIC PANEL bilirubin total 0.5 mg/dL 0.2-1. 3 Not Available [facility] ([facility]Op [facility]) [address] [place] [address] [place], [address], 08/16/2023 14:04:55 08/16/19 24 08/16/2023 COMP METAB OLIC PANEL AST (SGOT) 28 IU/L 14-36 Not Available [facility] ([facility]) [address] [place] [address] [place], [address], 08/16/2023 14:04:55 08/16/19 24 08/16/2023 COMP METAB OLIC PANEL ALT (SGPT) 23 IU/L 0-35 Pleas e note new refer ence inter harika for ALT. Due to a recen t manuf actur er metho dolog y ortiz e, the refer ence inter harika for ALT is lower effec tive June 09, 2020. Not Available [facility] ([facility]) [address] [place] [address] [place], [address], 08/16/2023 14:04:55 08/16/19 24 08/16/2023 COMP METAB OLIC PANEL alk phosphatase 52 IU/L 38-126 Not Available [facility] ([facility]Op [facility]) [address] [place] [address] [place], [address], 08/16/2023 14:04:55 08/16/19 24 08/16/2023 COMP METAB OLIC PANEL note Unles s other hernandez noted testi ng perfo rmed at: [facility] [address] [place] [address] Amilcar cho MD Not Available [facility] ([facility]) [address] [place] [address] [place], [address], 08/16/2023 14:04:55 12/18/19 24 12/18/2023 CBC W/ AUTO DIFF WBC 6.63 K/uL 4.5-11 .5 Not Available [facility] ([facility]) [address] [place] [address] [place], [address], 12/18/2023 16:14:54 12/18/19 24 12/18/2023 CBC W/ AUTO DIFF RBC 3.92 M/uL 4.0-5. 4 low Not Available [facility] ([facility]) [address] [place] [address] [place], [address], 12/18/2023 16:14:54 12/18/19 24 12/18/2023 CBC W/ AUTO DIFF HGB 11.6 g/dL 12.0-1 5.0 low Not Available [facility] ([facility]) [address] [place] [address] [place], [address], 12/18/2023 16:14:54 12/18/19 24 12/18/2023 CBC W/ AUTO DIFF HCT 34.9 % 35-49 low Not Available [facility] ([facility]) [address] [place] [address] [place], [address], 12/18/2023 16:14:54 12/18/19 24 12/18/2023 CBC W/ AUTO DIFF MCV 89.0 fL 80.0-1 00.0 Not Available [facility] ([facility]) [address] [place] [address] [place], [address], 12/18/2023 16:14:54 12/18/19 24 12/18/2023 CBC W/ AUTO DIFF MCH 29.6 pg 26.0-3 2.0 Not Available [facility] ([facility]) [address] [place] [address] [place], [address], 12/18/2023 16:14:54 12/18/19 24 12/18/2023 CBC W/ AUTO DIFF MCHC 33.2 g/dL 32.0-3 6.0 Not Available [facility] ([facility]) [address] [place] [address] [place], [address], 12/18/2023 16:14:54 12/18/19 24 12/18/2023 CBC W/ AUTO DIFF RDW 13.6 % 11.5-1 4.5 Not Available [facility] ([facility]) [address] [place] [address] [place], [address], 12/18/2023 16:14:54 12/18/19 24 12/18/2023 CBC W/ AUTO DIFF platelet count 214 K/uL 142-42 4 Not Available [facility] ([facility]) [address] [place] [address] [place], [address], 12/18/2023 16:14:54 12/18/19 24 12/18/2023 CBC W/ AUTO DIFF MPV 11.3 fL 6.8-10 .2 high Not Available [facility] ([facility]) [address] [place] [address] [place], [address], 12/18/2023 16:14:54 12/18/19 24 12/18/2023 CBC W/ AUTO DIFF neutrophil % 46.9 % 50-70 low Not Available [facility] ([facility]) [address] [place], [address], 12/18/2023 16:14:54 12/18/19 24 12/18/2023 CBC W/ AUTO DIFF lymphocyte % 31.4 % 18.0-4 2.0 Not Available [facility] ([facility]) [address] [place] [address] [place], [address], 12/18/2023 16:14:54 12/18/19 24 12/18/2023 CBC W/ AUTO DIFF monocyte % 15.5 % 2.0-11 .0 high Not Available [facility] ([facility]) [address] [place] [address] [place], [address], 12/18/2023 16:14:54 12/18/19 24 12/18/2023 CBC W/ AUTO DIFF eosinophil % 5.1 % 1.0-3. 0 high Not Available [facility] ([facility]) [address] [place] [address] [place], [address], 12/18/2023 16:14:54 12/18/19 24 12/18/2023 CBC W/ AUTO DIFF basophil % 0.8 % 0.0-2. 0 Not Available [facility] ([facility]) [address] [place] [address] [place], [address], 12/18/2023 16:14:54 12/18/19 24 12/18/2023 CBC W/ AUTO DIFF immature granulocytes % 0.3 % 0.0-0. 8 Not Available [facility] ([facility]) [address] [place] [address] [place], [address], 12/18/2023 16:14:54 12/18/19 24 12/18/2023 CBC W/ AUTO DIFF nucleated red blood cells % 0.0 % Not Available [facility] ([facility]) [address] [place], [address], 12/18/2023 16:14:54 12/18/19 24 12/18/2023 CBC W/ AUTO DIFF neutrophil # 3.11 K/uL Not Available [facility] ([facility]) [address] [place], [address], 12/18/2023 16:14:54 12/18/19 24 12/18/2023 CBC W/ AUTO DIFF lymphocyte # 2.08 K/uL Not Available [facility] ([facility]) [address] [place], [address], 12/18/2023 16:14:54 12/18/19 24 12/18/2023 CBC W/ AUTO DIFF monocyte # 1.03 K/uL Not Available [facility] ([facility]) [address] [place] [address] [place], [address], 12/18/2023 16:14:54 12/18/19 24 12/18/2023 CBC W/ AUTO DIFF eosinophil # 0.34 K/uL Not Available [facility] ([facility]) [address] [place] [address] [place], [address], 12/18/2023 16:14:54 12/18/19 24 12/18/2023 CBC W/ AUTO DIFF basophil # 0.05 K/uL Not Available [facility] ([facility]) [address] [place], [address], 12/18/2023 16:14:54 12/18/19 24 12/18/2023 CBC W/ AUTO DIFF immature gramulocytes # 0.02 K/uL Not Available [facility] ([facility]) [address] [place] [address] [place], [address], 12/18/2023 16:14:54 12/18/19 24 12/18/2023 CBC W/ AUTO DIFF nucleated red blood cells # 0.00 k/uL Not Available [facility] ([facility]) [address] [place], [address], 12/18/2023 16:14:54 12/18/19 24 12/18/2023 CBC W/ AUTO DIFF manual differential NO Not Available [facility] ([facility]) [address] [place], [address], 12/18/2023 16:14:54 12/18/19 24 12/18/2023 CBC W/ AUTO DIFF note Unles s other hernandez noted testi ng perfo rmed at: [facility] [address] [place] [address] Amilcar cho MD Not Available [facility] ([facility]) [address] [place], [address], 12/18/2023 16:14:54 12/18/19 24 12/18/2023 COMP METAB OLIC PANEL sodium 143 mmol/ L 137-14 7 Not Available [facility] ([facility]) [address] [place], [address], 12/18/2023 16:48:48 12/18/19 24 12/18/2023 COMP METAB OLIC PANEL potassium 4.6 mmol/ L 3.5-5. 1 Not Available [facility] ([facility]Op [facility]) [address] [place] [address] [place], [address], 12/18/2023 16:48:48 12/18/19 24 12/18/2023 COMP METAB OLIC PANEL chloride 103 mmol/ L 98-110 Not Available [facility] ([facility]) [address] [place] [address] [place], [address], 12/18/2023 16:48:48 12/18/19 24 12/18/2023 COMP METAB OLIC PANEL carbon dioxide 27 mmol/ L 21-30 Not Available [facility] ([facility]) [address] [place] [address] [place], [address], 12/18/2023 16:48:48 12/18/19 24 12/18/2023 COMP METAB OLIC PANEL anion gap 13 mmol/ L 6-14 Not Available [facility] ([facility]) [address] [place] [address] [place], [address], 12/18/2023 16:48:48 12/18/19 24 12/18/2023 COMP METAB OLIC PANEL glucose 89 mg/dL 70-115 Not Available [facility] ([facility]) [address] [place] [address] [place], [address], 12/18/2023 16:48:48 12/18/19 24 12/18/2023 COMP METAB OLIC PANEL BUN 23 mg/dL 7-17 high Not Available [facility] ([facility]) [address] [place] [address] [place], [address], 12/18/2023 16:48:48 12/18/19 24 12/18/2023 COMP METAB OLIC PANEL creatinine 1.2 mg/dL 0.5-1. 5 Not Available [facility] ([facility]) [address] [place] [address] [place], [address], 12/18/2023 16:48:48 12/18/19 24 12/18/2023 COMP METAB OLIC PANEL BUN/creatini ne ratio 19 10-20 Not Available [facility] ([facility]) [address] [place] [address] [place], [address], 12/18/2023 16:48:48 12/18/19 24 12/18/2023 COMP METAB OLIC PANEL glom filtration rate 46 mL/mi n >60- low GFR LIMIT ATION : The eGFR equat ion CKD-E PI 2020 is not appli cable for pedia tric patie nts or great er than 90 years of age. The follo wing condi tions may alter the GFR resul t: extre mes in body size, malnu triti on or obesi ty, skele holli muscl e disea se, parap legia or quadr ipleg ia, veget kayla diet or rapid ly ortiz ing kiney funct ion. Not Available [facility] ([facility]) [address] [place], [address], 12/18/2023 16:48:48 12/18/19 24 12/18/2023 COMP METAB OLIC PANEL osmolality (calculated) 300 mosmo l/kg 275-30 1 OSMOL ALITY IS A CALCU LATIO N UTILI ZING THE SERUM /PLAS MA SODIU M, GLUCO SE AND UREA NITRO GEN (BUN) LEVEL S. FOR THE MOST ACCUR ATE RESUL T A MEASU RED SERUM OSMOL ALITY IS SUGGE STED. Not Available [facility] ([facility]) [address] [place] [address] [place], [address], 12/18/2023 16:48:48 12/18/19 24 12/18/2023 COMP METAB OLIC PANEL total protein 7.6 g/dL 6.2-8. 2 Not Available [facility] ([facility]) [address] [place] [address] [place], [address], 12/18/2023 16:48:48 12/18/19 24 12/18/2023 COMP METAB OLIC PANEL albumin 4.5 g/dL 3.5-5. 0 Not Available [facility] ([facility]) [address] [place] [address] [place], [address], 12/18/2023 16:48:48 12/18/19 24 12/18/2023 COMP METAB OLIC PANEL calcium 9.5 mg/dL 8.5-10 .8 Not Available [facility] ([facility]Op [facility]) [address] [place] [address] [place], [address], 12/18/2023 16:48:48 12/18/19 24 12/18/2023 COMP METAB OLIC PANEL bilirubin total 0.3 mg/dL 0.2-1. 3 Not Available [facility] (Pre-Op [facility]) [address] [place] [address] [place], [address], 12/18/2023 16:48:48 12/18/19 24 12/18/2023 COMP METAB OLIC PANEL AST (SGOT) 27 IU/L 14-36 Not Available [facility] ([facility]) [address] [place] [address] [place], [address], 12/18/2023 16:48:48 12/18/19 24 12/18/2023 COMP METAB OLIC PANEL ALT (SGPT) 25 IU/L 0-35 Pleas e note new refer ence inter [facility] for ALT. Due to a recen t manuf actur er metho dolog y ortiz e, the refer ence inter [facility] for ALT is lower effec tive June 09, 2020. Not Available [facility] ([facility]) [address] [place] [address] [place], [address], 12/18/2023 16:48:48 12/18/19 24 12/18/2023 COMP METAB OLIC PANEL alk phosphatase 57 IU/L 38-126 Not Available [facility] (Pre-Op [facility]) [address] [place] [address] [place], [address], 12/18/2023 16:48:48 12/18/1912/18/2023 COMP METAB OLIC PANEL note Unles s other hernandez noted testi ng perfo [facility]med at: [facility] [address] [place] [address] Amilcar cho MD Not Available [facility] [facility] [address] [place] [address] [place], [address], 12/18/2023 16:48:48 12/18/19 24 12/18/2023 IRON STUDY W FE/TI BC/UI BC/%S AT iron 111 ug/dL 37-170 Not Available [facility] ([facility] [address] [place] [address] [place], [address], 12/18/2023 17:09:43 12/18/19 24 12/18/2023 IRON STUDY W FE/TI BC/UI BC/%S AT total iron bind cap. 355 ug/dL 265-49 7 Not Available [facility] ([facility]) [address] [place] [address] [place], [address], 12/18/2023 17:09:43 12/18/19 24 12/18/2023 IRON STUDY W FE/TI BC/UI BC/%S AT unsaturated iron binding cap 244 ug/dL 150-37 5 Not Available [facility] ([facility]) [address] [place] [address] [place], [address], 12/18/2023 17:09:43 12/18/19 24 12/18/2023 IRON STUDY W FE/TI BC/UI BC/%S AT % saturation 31 % 15-55 Not Available [facility] ([facility]) [address] [place] [address] [place], [address], 12/18/2023 17:09:43 12/18/19 24 12/18/2023 IRON STUDY W FE/TI BC/UI BC/%S AT note Unles s other hernandez noted testi ng perfo [facility]med at: [facility] [address] [place] [address] Amilcar cho MD Not Available [facility] ([facility]) [address] [place] [address] [place], [address], 12/18/2023 17:09:43 12/18/19 24 12/18/2023 ELIJAH TIN ferritin 53 NG/mL 3-105 Not Available [facility]) [address] [place] [address] [place], [address], 12/18/2023 17:25:18 12/18/19 24 12/18/2023 ELIJAH TIN note Unles s other hernandez noted testi ng perfo [facility]med at: [facility] [address] [place] [address] Amilcar cho MD Not Available [facility]) [address] [place] [address] [place], [address], 12/18/2023 17:25:18 04/23/19 25 04/22/2024 CBC W/ AUTO DIFF WBC 6.39 K/uL 4.5-11 .5 Not Available [facility]) [address] [place] [address] [place], [address], 04/22/2024 15:09:35 04/23/19 25 04/22/2024 CBC W/ AUTO DIFF RBC 3.99 M/uL 4.0-5. 4 low Not Available [facility]) [address] [place] [address] [place], [address], 04/22/2024 15:09:35 04/23/19 25 04/22/2024 CBC W/ AUTO DIFF HGB 11.6 g/dL 12.0-1 5.0 low Not Available [facility]) [address] [place] [address] [place], [address], 04/22/2024 15:09:35 04/23/19 25 04/22/2024 CBC W/ AUTO DIFF HCT 35.4 % 35-49 Not Available [facility]) [address] [place] [address] [place], [address], 04/22/2024 15:09:35 04/23/19 25 04/22/2024 CBC W/ AUTO DIFF MCV 88.7 fL 80.0-1 00.0 Not Available [facility]) [address] [place] [address] [place], [address], 04/22/2024 15:09:35 04/23/19 25 04/22/2024 CBC W/ AUTO DIFF MCH 29.1 pg 26.0-3 2.0 Not Available [facility]) [address] [place] [address] [place], [address], 04/22/2024 15:09:35 04/23/19 25 04/22/2024 CBC W/ AUTO DIFF MCHC 32.8 g/dL 32.0-3 6.0 Not Available [facility]) [address] [place] [address] [place], [address], 04/22/2024 15:09:35 04/23/19 25 04/22/2024 CBC W/ AUTO DIFF RDW 13.9 % 11.5-1 4.5 Not Available [facility]) [address] [place] [address] [place], [address], 04/22/2024 15:09:35 04/23/19 25 04/22/2024 CBC W/ AUTO DIFF platelet count 197 K/uL 142-42 4 Not Available [facility]) [address] [place] [address] [place], [address], 04/22/2024 15:09:35 04/23/19 25 04/22/2024 CBC W/ AUTO DIFF MPV 10.7 fL 6.8-10 .2 high Not Available [facility]) [address] [place] [address] [place], [address], 04/22/2024 15:09:35 04/23/19 25 04/22/2024 CBC W/ AUTO DIFF neutrophil % 38.5 % 50-70 low Not Available [facility]) [address] [place] [address] [place], [address], 04/22/2024 15:09:35 04/23/19 25 04/22/2024 CBC W/ AUTO DIFF lymphocyte % 33.8 % 18.0-4 2.0 Not Available [facility]) [address] [place] [address] [place], [address], 04/22/2024 15:09:35 04/23/19 25 04/22/2024 CBC W/ AUTO DIFF monocyte % 18.3 % 2.0-11 .0 high Not Available [facility]) [address] [place] [address] [place], [address], 04/22/2024 15:09:35 04/23/19 25 04/22/2024 CBC W/ AUTO DIFF eosinophil % 8.0 % 1.0-3. 0 high Not Available [facility] ([facility]) [address] [place], [address], 04/22/2024 15:09:35 04/23/19 25 04/22/2024 CBC W/ AUTO DIFF basophil % 0.9 % 0.0-2. 0 Not Available [facility] ([facility]) [address] [place] [address] [place], [address], 04/22/2024 15:09:35 04/23/19 25 04/22/2024 CBC W/ AUTO DIFF immature granulocytes % 0.5 % 0.0-0. 8 Not Available [facility] ([facility]) [address] [place] [address] [place], [address], 04/22/2024 15:09:35 04/23/19 25 04/22/2024 CBC W/ AUTO DIFF nucleated red blood cells % 0.0 % Not Available [facility] ([facility]) [address] [place] [address] [place], [address], 04/22/2024 15:09:35 04/23/19 25 04/22/2024 CBC W/ AUTO DIFF neutrophil # 2.46 K/uL Not Available [facility] ([facility]) [address] [place] [address] [place], [address], 04/22/2024 15:09:35 04/23/19 25 04/22/2024 CBC W/ AUTO DIFF lymphocyte # 2.16 K/uL Not Available [facility] ([facility]) [address] [place] [address] [place], [address], 04/22/2024 15:09:35 04/23/19 25 04/22/2024 CBC W/ AUTO DIFF monocyte # 1.17 K/uL Not Available [facility] ([facility]) [address] [place] [address] [place], [address], 04/22/2024 15:09:35 04/23/19 25 04/22/2024 CBC W/ AUTO DIFF eosinophil # 0.51 K/uL Not Available [facility]) [address] [place] [address] [place], [address], 04/22/2024 15:09:35 04/23/19 25 04/22/2024 CBC W/ AUTO DIFF basophil # 0.06 K/uL Not Available [facility] ([facility]) [address] [place] [address] [place], [address], 04/22/2024 15:09:35 04/23/19 25 04/22/2024 CBC W/ AUTO DIFF immature gramulocytes # 0.03 K/uL Not Available [facility] ([facility]) [address] [place] [address] [place], [address], 04/22/2024 15:09:35 04/23/19 25 04/22/2024 CBC W/ AUTO DIFF nucleated red blood cells # 0.00 k/uL Not Available [facility] ([facility]) [address] [place] [address] [place], [address], 04/22/2024 15:09:35 04/23/19 25 04/22/2024 CBC W/ AUTO DIFF manual differential NO Not Available [facility] ([facility]) [address] [place] [address] [place], [address], 04/22/2024 15:09:35 04/23/19 25 04/22/2024 CBC W/ AUTO DIFF note Unles s other hernandez noted testi ng perfo rmed at: [facility] [address] [place] [address] Amilcar cho MD Not Available [facility] ([facility]) [address] [place] [address] [place], [address], 04/22/2024 15:09:35 04/23/19 25 04/22/2024 COMP METAB OLIC PANEL sodium 138 mmol/ L 137-14 7 Not Available [facility]) [address] [place], [address], 04/22/2024 18:07:37 04/23/19 25 04/22/2024 COMP METAB OLIC PANEL potassium 4.6 mmol/ L 3.5-5. 1 Not Available [facility]) [address] [place] [address] [place], [address], 04/22/2024 18:07:37 04/23/19 25 04/22/2024 COMP METAB OLIC PANEL chloride 104 mmol/ L 98-110 Not Available [facility] ([facility]) [address] [place] [address] [place], [address], 04/22/2024 18:07:37 04/23/19 25 04/22/2024 COMP METAB OLIC PANEL carbon dioxide 24 mmol/ L 21-30 Not Available [facility]) [address] [place] [address] [place], [address], 04/22/2024 18:07:37 04/23/19 25 04/22/2024 COMP METAB OLIC PANEL anion gap 10 mmol/ L 6-14 Not Available [facility] ([facility]) [address] [place] [address] [place], [address], 04/22/2024 18:07:37 04/23/19 25 04/22/2024 COMP METAB OLIC PANEL glucose 92 mg/dL 70-115 Not Available [facility]) [address] [place] [address] [place], [address], 04/22/2024 18:07:37 04/23/19 25 04/22/2024 COMP METAB OLIC PANEL BUN 20 mg/dL 7-17 high Not Available [facility]) [address] [place] [address] [place], [address], 04/22/2024 18:07:37 04/23/19 25 04/22/2024 COMP METAB OLIC PANEL creatinine 1.0 mg/dL 0.5-1. 5 Not Available [facility]) [address] [place] [address] [place], [address], 04/22/2024 18:07:37 04/23/19 25 04/22/2024 COMP METAB OLIC PANEL BUN/creatini ne ratio 20 10-20 Not Available [facility]) [address] [place] [address] [place], [address], 04/22/2024 18:07:37 04/23/19 25 04/22/2024 COMP METAB OLIC PANEL glom filtration rate 57 mL/mi n >60- low GFR LIMIT ATION : The eGFR equat ion CKD-E PI 2020 is not appli cable for pedia tric patie nts or great er than 90 years of age. The follo wing condi tions may alter the GFR resul t: extre mes in body size, malnu triti on or obesi ty, skele holli muscl e disea se, parap legia or quadr ipleg ia, veget kayla diet or rapid ly ortiz ing kiney funct ion. Not Available [facility]) [address] [place] [address] [place], [address], 04/22/2024 18:07:37 04/23/19 25 04/22/2024 COMP METAB OLIC PANEL osmolality (calculated) 289 mosmo l/kg 275-30 1 OSMOL ALITY IS A CALCU LATIO N UTILI ZING THE SERUM /PLAS MA SODIU M, GLUCO SE AND UREA NITRO GEN (BUN) LEVEL S. FOR THE MOST ACCUR ATE RESUL T A MEASU RED SERUM OSMOL ALITY IS SUGGE STED. Not Available [facility]) [address] [place] [address] [place], [address], 04/22/2024 18:07:37 04/23/19 25 04/22/2024 COMP METAB OLIC PANEL total protein 7.4 g/dL 6.2-8. 2 Not Available [facility]) [address] [place], [address], 04/22/2024 18:07:37 04/23/19 25 04/22/2024 COMP METAB OLIC PANEL albumin 4.5 g/dL 3.5-5. 0 Not Available [facility]) [address] [place] [address] [place], [address], 04/22/2024 18:07:37 04/23/19 25 04/22/2024 COMP METAB OLIC PANEL calcium 9.3 mg/dL 8.5-10 .8 Not Available [facility] ([facility]) [address] [place] [address] [place], [address], 04/22/2024 18:07:37 04/23/19 25 04/22/2024 COMP METAB OLIC PANEL bilirubin total 0.6 mg/dL 0.2-1. 3 Not Available [facility] ([facility]) [address] [place] [address] [place], [address], 04/22/2024 18:07:37 04/23/19 25 04/22/2024 COMP METAB OLIC PANEL AST (SGOT) 28 IU/L 14-36 Not Available [facility]) [address] [place] [address] [place], [address], 04/22/2024 18:07:37 04/23/19 25 04/22/2024 COMP METAB OLIC PANEL ALT (SGPT) 25 IU/L 0-35 Pleas e note new refer ence inter harika for ALT. Due to a recen t manuf actur er metho dolog y ortiz e, the refer ence inter harika for ALT is lower effec tive June 09, 2020. Not Available [facility] ([facility]) [address] [place] [address] [place], [address], 04/22/2024 18:07:37 04/23/19 25 04/22/2024 COMP METAB OLIC PANEL alk phosphatase 51 IU/L 38-126 Not Available [facility] ([facility]) [address] [place], [address], 04/22/2024 18:07:37 04/23/19 25 04/22/2024 COMP METAB OLIC PANEL note Unles s other hernandez noted testi ng perfo rmed at: [facility] [address] [place] [address] Amilcar cho MD Not Available [facility]) [address] [place], [address], 04/22/2024 18:07:37 04/23/19 25 04/22/2024 IRON STUDY W FE/TI BC/UI BC/%S AT iron 112 ug/dL 37-170 Not Available [facility] ([facility]) [address] [place], [address], 04/22/2024 19:12:47 04/23/19 25 04/22/2024 IRON STUDY W FE/TI BC/UI BC/%S AT total iron bind cap. 342 ug/dL 265-49 7 Not Available [facility] ([facility]) [address] [place] [address] [place], [address], 04/22/2024 19:12:47 04/23/19 25 04/22/2024 IRON STUDY W FE/TI BC/UI BC/%S AT unsaturated iron binding cap 230 ug/dL 150-37 5 Not Available [facility] ([facility]) [address] [place] [address] [place], [address], 04/22/2024 19:12:47 04/23/19 25 04/22/2024 IRON STUDY W FE/TI BC/UI BC/%S AT % saturation 33 % 15-55 Not Available [facility] ([facility]) [address] [place] [address] [place], [address], 04/22/2024 19:12:47 04/23/19 25 04/22/2024 IRON STUDY W FE/TI BC/UI BC/%S AT note Unles s other hernandez noted testi ng perfo rmed at: [facility] [address] [place] [address] Amilcar cho MD Not Available [facility]) [address] [place] [address] [place], [address], 04/22/2024 19:12:47 04/23/19 25 04/22/2024 ELIJAH TIN note Unles s other hernandez noted testi ng perfo rmed at[facility] [address] [place] [address] Amilcar cho MD Not Available [facility]) [address] [place] [address] [place], [address], 04/23/2024 00:01:50 04/23/19 25 04/23/2024 ELIJAH TIN ferritin 57 NG/mL 3-105 Not Available [facility]) [address] [place] [address] [place], [address], 04/23/2024 00:01:50 Result Notes None recorded. Problems Name Problem SNOMED Code Status Onset Date Resolution Date Notes Provider Name and Address Organization Details Recorded Time Leukopenia [id number] Active 023 Rakel [place]imentel [place] [facility] [place] 16:31:19 Problem Notes None recorded. Procedures Surgical History Date Name Laterality Status Provider Name and Address Organization Details Recorded Time 04/23/19 25 Venipuncture completed Kyung Genoveva [place] [facility] [place] 04/22/2024 10:34:01 12/18/19 24 Venipuncture [place] Isabell [place]all [place] [facility] [place] 12/18/2023 11:14:08 08/16/19 24 Venipuncture [place] Kyung Genoveva [place] [facility] [place] 08/16/2023 11:06:18 02/15/20 23 Venipuncture [place] Kyung Genoveva [place] [facility] [place] 02/14/2023 10:19:39 10/30/19 23 Venipuncture [place] Isabell [place]all [place] [facility] [place] 10/29/2022 10:06:09 07/28/19 23 Venipuncture completed Jessica TORRES - [facility] [place] 07/27/2022 10:04:42 06/09/19 23 Venipuncture [place] Saulo Greenl [place] [facility] [place] 06/08/2022 09:28:25 04/27/19 23 Venipuncture completed Saulo Greenl [place] [facility] [place] 04/26/2022 10:30:39 01/10/20 22 Venipuncture completed Jessica TORRES - [facility] [place] 01/09/2022 11:24:01 10/03/19 22 completed Isabell TORRES - [facility] [place] 10/29/2022 09:42:57 06/06/19 16 colonoscopy completed Isabell TORRES - [facility] [place] 12/18/2023 11:11:34 08/09/19 12 implantation of cardiac pacemaker completed Isabell TORRES - [facility] [place] 12/18/2023 11:11:08 maintenance procedure for cardiac pacemaker system completed Isabell TORRES - [facility] [place] 10/29/2022 09:44:27 excision of nipple completed Isabell TORRES - [facility] [place] 10/29/2022 09:44:38 Imaging Results None recorded. Procedure Notes None recorded. Medical Equipment None Reported. Allergies No known drug allergies Medications Name Sig Start Date Stop Date Status Note LastModified by Organization Details LastModified Time amoxicill in 500 mg capsule TAKE 1 CAPSULE BY MOUTH EVERY 8 HOURS 10/29 completed Not Available Not Available Not Available carvedilo l 25 mg tablet active Not Available Not Available Not Available ketoconaz ole 2 % shampoo APPLY TO SCALP TWICE WEEKLY FOR 8 WEEKS THEN NEEDED AFTER active Not Available Not Available No t Available atorvasta tin 10 mg tablet active Not Available Not Available Not Available lisinopri l 20 mg tablet TAKE 1 TABLET ONCE DAILY (MORE REFILLS AT FOLLOW UP) active Not Available Not Available No t Available omeprazol e 40 mg capsule,d elayed release active Not Available Not Available Not Available spironola ctone 25 mg tablet TAKE 1 TABLET BY MOUTH DAILY active Not Available Not Available No t Available mexiletin e 150 mg capsule active Not Available Not Available Not Available levothyro xine 50 mcg tablet active Not Available Not Available Not Available Lasix 20 mg tablet Take 1 tablet every day by oral route. active Not Available Not Available No t Available triamcino lone acetonide 0.1 % topical ointment APPLY 1 APPLICAT ION ON SKIN TWICE DAILY active Not Available Not Available No t Available monteluka st 10 mg tablet active Not Available Not Available Not Available fluticaso ne propionat e 50 mcg/actua tion nasal spray,bobby pension active Not Available Not Available Not Available potassium chloride 10 meq active Not Available Not Available Not Available vitamin E active Not Available Not Elda ilable Not Available Vitamin D active Not Available Not Elda ilable Not Available Prolia 60 mg/mL subcutane ous syringe Inject 1 mL by subcutan eous route as needed. active last given 06/2023-- every 6mo. in jection sub Q Not Available Not Available Not Available magnesium 400 mg (as magnesium oxide) capsule Take by oral route. active Not Available Not Available No t Available Centrum Silver Women 1 a day active Not Available Not Available Not Available BinaxNOW COVID-19 Ag Self Test kit TEST DIRECTED TODAY 04/26 completed Not Available Not Available Not Available aspirin 81 mg capsule Take 1 capsule every day by oral route. active Not Available Not Available No t Available Vitals Date Recorded Body height Body temperature Heart rate Oxygen saturation Oxygen saturation in Arterial blood by Pulse oximetry Systolic blood pressure Diastolic blood pressure Provider Name and Address Organization Details Last Updated DateTime 5 161.29 cm 98.1 [degF] 88 /min 95 % 95 % 118 mm[Hg] 60 mm[Hg] Kyung Tomas [place] - [facility] [place] 5 10:23:18 Date Recorded Body height Body mass index (BMI) Body weight Body temperature Heart rate Oxygen saturation Oxygen saturation in Arterial blood by Pulse oximetry Systolic blood pressure Diastolic blood pressure Provider Name and Address Organization Details Last Updated DateTime 4 161.29 cm 25.3 kg/m2 94053.8 9 g 98.1 [degF] 90 /min 98 % 98 % 101 mm[Hg] 59 mm[Hg] Kyung OLGUIN [facility] & [place] 4 11:01:44 Date Recorded Body height Body mass index (BMI) Body weight Body temperature Oxygen saturation Oxygen saturation in Arterial blood by Pulse oximetry Heart rate Systolic blood pressure Diastolic blood pressure Provider Name and Address Organization Details Last Updated DateTime 3 161.29 cm 25.4 kg/m2 23230.6 9 g 97.3 [degF] 100 % 100 % 83 /min 128 mm[Hg] 58 mm[Hg] [facility] [place] 3 09:43:25 Date Recorded Body height Body mass index (BMI) Body weight Oxygen saturation Oxygen saturation in Arterial blood by Pulse oximetry Heart rate Body temperature Systolic blood pressure Diastolic blood pressure Provider Name and Address Organization Details Last Updated DateTime 4 161.29 cm 26.2 kg/m2 00399.8 6 g 99 % 99 % 69 /min 97.3 [degF] 118 mm[Hg] 58 mm[Hg] [facility] [place] 4 11:05:03 Date Recorded Body height Body mass index (BMI) Body weight Body temperature Oxygen saturation Oxygen saturation in Arterial blood by Pulse oximetry Heart rate Systolic blood pressure Diastolic blood pressure Provider Name and Address Organization Details Last Updated DateTime 3 161.29 cm 24.4 kg/m2 08302.9 3 g 98.1 [degF] 97 % 97 % 80 /min 118 mm[Hg] 56 mm[Hg] [facility] [place] 3 09:49:57 Social History Question Answer Notes LastModified by Organizat ion Details LastModified Time Tobacco Smoking Status Never Smoker Jessica pimentel BRIAN Jackson LPMAGDALENE [facility] & [place] 01/09/2022 10:56:43 Do You Have An Advance Directive? No [email or web address] Information not available 10/29/2022 Are You Blind Or Do You Have Difficulty Seeing? No [email or web address] Information not available 10/29/2022 What Is Your Level Of Caffeine Consumption? Occasional [email or web address] Information not available 12/18/2023 What Was The Date Of Your Most Recent Tobacco Screening? 12/18/2023 Information not available 12/18/2023 Are You Passively Exposed To Smoke? No Information not available 10/29/2022 How Much Tobacco Do You Smoke? No [email or web address] Information not available 10/29/2022 Has Tobacco Cessation Counseling Been Provided? No [email or web address] Information not available 10/29/2022 Sex: Unknown Functional Status Question Answer Note LastModified by Organizat ion Details LastModified Time Do you use any illicit or recreational drugs? No [email or web address] Information not available 01/09/2022 Do you or have you ever used any other forms of tobacco or nicotine? No [email or web address] Information not available 12/18/2023 What is your level of alcohol consumption? None [email or web address] Information not available 01/09/2022 Do you or have you ever used smokeless tobacco? Never used smokeless tobacco [email or web address] Information not available 10/29/2022 What is your exercise level? Moderate [email or web address] Information not available 10/29/2022 Mental Status Question Answer Note LastModified by Organization D etails LastModified Time Do you feel stressed (tense, restless, nervous, or anxious, or unable to sleep at night)? [id number] [email or web address] Information not available 10/29/2022 Family History Relationship Description Onset Age of this Age Resolved Age Notes LastModified by Organization Details LastModified Time Maternal Aunt Disorder of endocrine system pt. added direct ly (01/06) [email or web address] Not available 01/06/2022 12:23:22 Maternal Aunt Heart disease [email or web address] Not available 2021 10:59:26 Father Cerebral hemorrhage [email or web address] Not available 04/22 10:19:37 Father Heart disease pt. added direct ly (06/07) [email or web address] Not available 06/07/2022 12:25:05 Sister Heart disease pt. added direct ly (06/07) [email or web address] Not available 06/07/2022 12:25:05 Sister Hearing loss pt. added direct ly (06/07) [email or web address] Not available 06/07/2022 12:25:31 Sister Blood coagulation disorder pt. added direct ly (06/07) [email or web address] Not available 06/07/2022 12:25:51 Sister Hypercholest erolemia pt. added direct ly (06/07) [email or web address] Not available 06/07/2022 12:26:20 Sister Osteoporosis pt. added direct ly (06/07) [email or web address] Not available 06/07/2022 12:27:50 Sister Sleep disorder pt. added direct ly (06/07) [email or web address] Not available 06/07/2022 12:28:26 Sister Disorder of thyroid gland pt. added direct ly (06/07) [email or web address] Not available 06/07/2022 12:29:00 Maternal Grandfather Heart disease pt. added direct ly (06/07) [email or web address] Not available 06/07/2022 12:25:05 Maternal Grandmother Hearing loss pt. added direct ly (06/07) [email or web address] Not available 06/07/2022 12:25:31 Maternal Grandmother Hypercholest erolemia pt. added direct ly (06/07) [email or web address] Not available 06/07/2022 12:26:20 Medical History Condition Response Vision or Eye Problems Y Arthritis Y Ear or Hearing Problems Y Congestive Heart Failure (CHF) Y Kidney or Bladder Problems Y Thyroid Problems Y Osteoporosis/Osteopenia Y Anemia Y Reflux/GERD Y Heart Disease Y Obstructive Sleep Apnea Y Gynecological History Statement/Question Response Menses Monthly N 10/02/2021 Sexually Active? N Obstetrics History GPAL:G 0 P 0 0 0 0 Past Encounters Encounter ID Performer Location Encounter Start Date Encounter Closed Date Diagnosis/Indication Diagnosis SNOMED-CT Code Diagnosis ICD10 Code Diagnosis Note [id number] Beth Stephenson PA-C [facility] [address] [place] [id number] 01/09/2022 10:42:02 01/09/2022 11:18:21 Anemia [id number] D64.9 Labs on August 06, 2019. White blood cell count 7.0 red blood count 3.68. Hemoglobin 10.9 and hematocrit 33.1. Platelet count 663936. No immature cells seen on differenti al. Serum iron normal at 68. Iron binding capacity of 314. Labs on July 23, 2019 with GFR at 46 and creatinine at 1.2. Consistent with stage 3 chronic kidney disease. Hemoglobin 10.6 red blood cell count 3.64 platelet count . Normal TSH. Labs on August 25, 2019 with white blood cell count 7.86 red blood count 3.6 hemoglobin 10.4 hematocrit 32.6. MCV 90.6. Platelet count [id number]. Creatinine 1.0 and total protein normal at 6.4 normal calcium at 9.4. Serum iron and iron saturation normal. Erythropoi etin level at 12.2. Normal B12 and folic acid. Patient with history of stage 3 chronic kidney disease. Normal erythropoi etin level on labs from August 2019. Inappropri ately normal level given mild anemia. Likely renal associated anemia.Lab s on December 22, 2019 with stable hemoglobin at 10.9. Serum iron 78 and iron saturation 23%. Ferritin 108. Patient returns on June 21, 2020. Will follow up labs today. Discussed with the patient considerat ion for erythropoi etin supplement ation if hemoglobin were to decrease below 10.0. Currently slim margin of benefit at this point when weighing risk of pushing hemoglobin artificial ly above 11.0. Discussed with the patient erythropoi etin supplement ation risk if hemoglobin is artificial ly pushed above 12.0.Labs on June 21, 2020 with white blood cell count 6.4. Red blood count 3.78. Hemoglobin 11.1 and hematocrit 33.1. Iron studies normal. Platelet count [id number]. Normal differenti al. Renal function with creatinine 1.1. Patient returns on December 20, 2020. will repeat labs today.Labs on December 20, 2020 with white blood cell count 6.34. Red blood count 4.19. Hemoglobin 12.3 and hematocrit 36.8. Iron studies normal. Platelet count 724772. Normal differenti al. Normal ferritin. Renal function with creatinine 1.1. Patient returns to clinic on January 09, 2022. Patient denies any acute complaints . Will repeat labs and FU with recommenda tions. Chronic ki dney disease stage 3 [id number] N18.30 Labs with evidence of stage 3 chronic kidney disease. Will follow up additional labs today. [id number] Izabella Diez PA-C [facility] [address] [place] [address] 04/26/2022 09:59:30 04/26/2022 10:30:32 Anemia [id number] D64.9 Labs on August 06, 2019. White blood cell count 7.0 red blood count 3.68. Hemoglobin 10.9 and hematocrit 33.1. Platelet count 552261. No immature cells seen on differenti al. Serum iron normal at 68. Iron binding capacity of 314. Labs on July 23, 2019 with GFR at 46 and creatinine at 1.2. Consistent with stage 3 chronic kidney disease. Hemoglobin 10.6 red blood cell count 3.64 platelet count . Normal TSH. Labs on August 25, 2019 with white blood cell count 7.86 red blood count 3.6 hemoglobin 10.4 hematocrit 32.6. MCV 90.6. Platelet count 622570. Creatinine 1.0 and total protein normal at 6.4 normal calcium at 9.4. Serum iron and iron saturation normal. Erythropoi etin level at 12.2. Normal B12 and folic acid. Patient with history of stage 3 chronic kidney disease. Normal erythropoi etin level on labs from August 2019. Inappropri ately normal level given mild anemia. Likely renal associated anemia.Lab s on December 22, 2019 with stable hemoglobin at 10.9. Serum iron 78 and iron saturation 23%. Ferritin 108. Patient returns on June 21, 2020. Will follow up labs today. Discussed with the patient considerat ion for erythropoi etin supplement ation if hemoglobin were to decrease below 10.0. Currently slim margin of benefit at this point when weighing risk of pushing hemoglobin artificial ly above 11.0. Discussed with the patient erythropoi etin supplement ation risk if hemoglobin is artificial ly pushed above 12.0.Labs on June 21, 2020 with white blood cell count 6.4. Red blood count 3.78. Hemoglobin 11.1 and hematocrit 33.1. Iron studies normal. Platelet count 827474. Normal differenti al. Renal function with creatinine 1.1. Patient returns on December 20, 2020. will repeat labs today.Labs on December 20, 2020 with white blood cell count 6.34. Red blood count 4.19. Hemoglobin 12.3 and hematocrit 36.8. Iron studies normal. Platelet count 213983. Normal differenti al. Normal ferritin. Renal function with creatinine 1.1. Patient returns to clinic on January 09, 2022. Patient denies any acute complaints . Will repeat labs and FU with idris terry.Jessica ent returns to clinic on April 26, 2022. Patient denies any new acute complaints . Will repeat labs with continue observatio n. Chronic ki dney disease stage 3 [id number] N18.30 Labs with evidence of stage 3 chronic kidney disease. Will follow up additional labs today. [id number] Izabella Diez PA-C [facility] [address] [place] [id number] 06/08/2022 09:21:21 06/08/2022 09:40:05 Chronic kidney disease stage 3 [id number] N18.30 Labs with evidence of stage 3 chronic kidney disease. Will follow up additional labs today. [id number] Izabella Diez PA-C [facility] [address] [place] [id number] 07/27/2022 09:28:42 07/27/2022 10:00:37 Anemia [id number] D64.9 Labs on August 06, 2019. White blood cell count 7.0 red blood count 3.68. Hemoglobin 10.9 and hematocrit 33.1. Platelet count 300191. No immature cells seen on differenti al. Serum iron normal at 68. Iron binding capacity of 314. Labs on July 23, 2019 with GFR at 46 and creatinine at 1.2. Consistent with stage 3 chronic kidney disease. Hemoglobin 10.6 red blood cell count 3.64 platelet count . Normal TSH. Labs on August 25, 2019 with white blood cell count 7.86 red blood count 3.6 hemoglobin 10.4 hematocrit 32.6. MCV 90.6. Platelet count 947591. Creatinine 1.0 and total protein normal at 6.4 normal calcium at 9.4. Serum iron and iron saturation normal. Erythropoi etin level at 12.2. Normal B12 and folic acid. Patient with history of stage 3 chronic kidney disease. Normal erythropoi etin level on labs from August 2019. Inappropri ately normal level given mild anemia. Likely renal associated anemia.Lab s on December 22, 2019 with stable hemoglobin at 10.9. Serum iron 78 and iron saturation 23%. Ferritin 108. Patient returns on June 21, 2020. Will follow up labs today. Discussed with the patient considerat ion for erythropoi etin supplement ation if hemoglobin were to decrease below 10.0. Currently slim margin of benefit at this point when weighing risk of pushing hemoglobin artificial ly above 11.0. Discussed with the patient erythropoi etin supplement ation risk if hemoglobin is artificial ly pushed above 12.0.Labs on June 21, 2020 with white blood cell count 6.4. Red blood count 3.78. Hemoglobin 11.1 and hematocrit 33.1. Iron studies normal. Platelet count 333318. Normal differenti al. Renal function with creatinine 1.1. Patient returns on December 20, 2020. will repeat labs today.Labs on December 20, 2020 with white blood cell count 6.34. Red blood count 4.19. Hemoglobin 12.3 and hematocrit 36.8. Iron studies normal. Platelet count 682249. Normal differenti al. Normal ferritin. Renal function with creatinine 1.1. Patient returns to clinic on January 09, 2022. Patient denies any acute complaints . Will repeat labs and FU with recommenda tions.Jessica ent returns to clinic on April 26, 2022. Patient denies any new acute complaints . Will repeat labs with continue observatio n. Patient returns to clinic on July 27, 2022. Patient denies any new acute complaints . Discussed with patient repeating labs for continued hopeful observatio n. Chronic ki dney disease stage 3 [id number] N18.30 Labs with evidence of stage 3 chronic kidney disease. Will follow up additional labs today. [id number] Izabella Diez PA-C [facility] [address] [place] [address] 10/29/2022 09:24:27 10/29/2022 10:12:53 Anemia [id number] D64.9 Labs on August 06, 2019. White blood cell count 7.0 red blood count 3.68. Hemoglobin 10.9 and hematocrit 33.1. Platelet count 283654. No immature cells seen on differenti al. Serum iron normal at 68. Iron binding capacity of 314. Labs on July 23, 2019 with GFR at 46 and creatinine at 1.2. Consistent with stage 3 chronic kidney disease. Hemoglobin 10.6 red blood cell count 3.64 platelet count 672691. Normal TSH. Labs on August 25, 2019 with white blood cell count 7.86 red blood count 3.6 hemoglobin 10.4 hematocrit 32.6. MCV 90.6. Platelet count 059191. Creatinine 1.0 and total protein normal at 6.4 normal calcium at 9.4. Serum iron and iron saturation normal. Erythropoi etin level at 12.2. Normal B12 and folic acid. Patient with history of stage 3 chronic kidney disease. Normal erythropoi etin level on labs from August 2019. Inappropri ately normal level given mild anemia. Likely renal associated anemia.Lab s on December 22, 2019 with stable hemoglobin at 10.9. Serum iron 78 and iron saturation 23%. Ferritin 108. Patient returns on June 21, 2020. Will follow up labs today. Discussed with the patient considerat ion for erythropoi etin supplement ation if hemoglobin were to decrease below 10.0. Currently slim margin of benefit at this point when weighing risk of pushing hemoglobin artificial ly above 11.0. Discussed with the patient erythropoi etin supplement ation risk if hemoglobin is artificial ly pushed above 12.0.Labs on June 21, 2020 with white blood cell count 6.4. Red blood count 3.78. Hemoglobin 11.1 and hematocrit 33.1. Iron studies normal. Platelet count 983201. Normal differenti al. Renal function with creatinine 1.1. Patient returns on December 20, 2020. will repeat labs today.Labs on December 20, 2020 with white blood cell count 6.34. Red blood count 4.19. Hemoglobin 12.3 and hematocrit 36.8. Iron studies normal. Platelet count 872336. Normal differenti al. Normal ferritin. Renal function with creatinine 1.1. Patient returns to clinic on January 09, 2022. Patient denies any acute complaints . Will repeat labs and FU with idris terry.Jessica ent returns to clinic on April 26, 2022. Patient denies any new acute complaints . Will repeat labs with continue observatio n. Patient returns to clinic on July 27, 2022. Patient denies any new acute complaints . Discussed with patient repeating labs for continued hopeful observatio n. Chronic ki dney disease stage 3 [id number] N18.30 Labs with evidence of stage 3 chronic kidney disease. Will follow up additional labs today. Anemia in chronic kidney disease 070186087 D63.1 Labs on July 27, 2022 with stable hemoglobin 11.8 normal iron studies normal ferritin. Will continue with observatio n.Patient presents to clinic on October 29, 2022. Patient denies any new acute complaints . Will repeat labs for continued hopeful observatio n. Patient has not needed erythropoi etin supplement ation due to hemoglobin consistent ly > 10. [id number] Mauricio Guzmán MD [facility] [address] [facility] [facility] [place] [address] 02/14/2023 09:45:10 02/14/2023 10:26:18 Anemia in chronic kidney disease [id number] D63.1 Labs on July 27, 2022 with stable hemoglobin 11.8 normal iron studies normal ferritin. Will continue with observatio n.Patient presents to clinic on October 29, 2022. Patient denies any new acute complaints . Will repeat labs for continued hopeful observatio n. Patient has not needed erythropoi etin supplement ation due to hemoglobin consistent ly > 10. Anemia [id number] D64.9 Labs on August 06, 2019. White blood cell count 7.0 red blood count 3.68. Hemoglobin 10.9 and hematocrit 33.1. Platelet count 633217. No immature cells seen on differenti al. Serum iron normal at 68. Iron binding capacity of 314. Labs on July 23, 2019 with GFR at 46 and creatinine at 1.2. Consistent with stage 3 chronic kidney disease. Hemoglobin 10.6 red blood cell count 3.64 platelet count . Normal TSH. Labs on August 25, 2019 with white blood cell count 7.86 red blood count 3.6 hemoglobin 10.4 hematocrit 32.6. MCV 90.6. Platelet count 200776. Creatinine 1.0 and total protein normal at 6.4 normal calcium at 9.4. Serum iron and iron saturation normal. Erythropoi etin level at 12.2. Normal B12 and folic acid. Patient with history of stage 3 chronic kidney disease. Normal erythropoi etin level on labs from August 2019. Inappropri ately normal level given mild anemia. Likely renal associated anemia.Lab s on December 22, 2019 with stable hemoglobin at 10.9. Serum iron 78 and iron saturation 23%. Ferritin 108. Patient returns on June 21, 2020. Will follow up labs today. Discussed with the patient considerat ion for erythropoi etin supplement ation if hemoglobin were to decrease below 10.0. Currently slim margin of benefit at this point when weighing risk of pushing hemoglobin artificial ly above 11.0. Discussed with the patient erythropoi etin supplement ation risk if hemoglobin is artificial ly pushed above 12.0. Labs on October 29, 2022 with serum iron 107. Iron saturation 26%. White blood cell count 5.59. Red blood count 3.81. Hemoglobin 11.1. Hematocrit 33.3. MCV 87. Patient returns on February 14, 2023. Concern for renal associated anemia. Will follow up additional labs today. Chronic ki dney disease stage 3 [id number] N18.30 Labs with evidence of stage 3 chronic kidney disease. Will follow up additional labs today. [id number] Izabella Diez PA-C [facility] [address] [facility] [address] 08/16/2023 10:35:39 08/16/2023 11:19:14 Anemia in chronic kidney disease [id number] D63.1 Labs on July 27, 2022 with stable hemoglobin 11.8 normal iron studies normal ferritin. Will continue with observatio n.Patient presents to clinic on October 29, 2022. Patient denies any new acute complaints . Will repeat labs for continued hopeful observatio n. Patient has not needed erythropoi etin supplement ation due to hemoglobin consistent ly > 10. Labs on February 14, 2023 with stable hemoglobin 11.3 hematocrit 39.9 MCV 87.9 normal iron studies normal ferritin normal B12 and folic acid. Erythropoi etin inappropri ately normal indicating renal associated anemia. Would not recommend erythropoi etin supplement ation as hemoglobin has consistent ly remained above 10. Patient presents to clinic on August 16, 2023. Patient denies any new acute complaints . Discussed renal associated anemia and will initiate erythropoi etin injections once hemoglobin consistent ly less than 10. Anemia [id number] D64.9 Labs on August 06, 2019. White blood cell count 7.0 red blood count 3.68. Hemoglobin 10.9 and hematocrit 33.1. Platelet count 097957. No immature cells seen on differenti al. Serum iron normal at 68. Iron binding capacity of 314. Labs on July 23, 2019 with GFR at 46 and creatinine at 1.2. Consistent with stage 3 chronic kidney disease. Hemoglobin 10.6 red blood cell count 3.64 platelet count . Normal TSH. Labs on August 25, 2019 with white blood cell count 7.86 red blood count 3.6 hemoglobin 10.4 hematocrit 32.6. MCV 90.6. Platelet count 739622. Creatinine 1.0 and total protein normal at 6.4 normal calcium at 9.4. Serum iron and iron saturation normal. Erythropoi etin level at 12.2. Normal B12 and folic acid. Patient with history of stage 3 chronic kidney disease. Normal erythropoi etin level on labs from August 2019. Inappropri ately normal level given mild anemia. Likely renal associated anemia.Lab s on December 22, 2019 with stable hemoglobin at 10.9. Serum iron 78 and iron saturation 23%. Ferritin 108. Patient returns on June 21, 2020. Will follow up labs today. Discussed with the patient considerat ion for erythropoi etin supplement ation if hemoglobin were to decrease below 10.0. Currently slim margin of benefit at this point when weighing risk of pushing hemoglobin artificial ly above 11.0. Discussed with the patient erythropoi etin supplement ation risk if hemoglobin is artificial ly pushed above 12.0. Labs on October 29, 2022 with serum iron 107. Iron saturation 26%. White blood cell count 5.59. Red blood count 3.81. Hemoglobin 11.1. Hematocrit 33.3. MCV 87. Patient returns on February 14, 2023. Concern for renal associated anemia. Will follow up additional labs today. Chronic ki dney disease stage 3 [id number] N18.30 Labs with evidence of stage 3 chronic kidney disease. Will follow up additional labs today. [id number] Izabella Diez PA-C [facility] [address] [place] [address] 12/18/2023 10:47:51 12/18/2023 11:38:09 Anemia in chronic kidney disease [id number] D63.1 Labs on July 27, 2022 with stable hemoglobin 11.8 normal iron studies normal ferritin. Will continue with observatio n.Patient presents to clinic on October 29, 2022. Patient denies any new acute complaints . Will repeat labs for continued hopeful observatio n. Patient has not needed erythropoi etin supplement ation due to hemoglobin consistent ly > 10. Labs on February 14, 2023 with stable hemoglobin 11.3 hematocrit 39.9 MCV 87.9 normal iron studies normal ferritin normal B12 and folic acid. Erythropoi etin inappropri ately normal indicating renal associated anemia. Would not recommend erythropoi etin supplement ation as hemoglobin has consistent ly remained above 10. Patient presents to clinic on August 16, 2023. Patient denies any new acute complaints . Discussed renal associated anemia and will initiate erythropoi etin injections once hemoglobin consistent ly less than 10. Patient presents to clinic on December 18, 2023. Patient denies any new acute complaints . Patient denies any new fatigue. Will repeat labs today. Anemia [id number] D64.9 Labs on August 06, 2019. White blood cell count 7.0 red blood count 3.68. Hemoglobin 10.9 and hematocrit 33.1. Platelet count 521908. No immature cells seen on differenti al. Serum iron normal at 68. Iron binding capacity of 314. Labs on July 23, 2019 with GFR at 46 and creatinine at 1.2. Consistent with stage 3 chronic kidney disease. Hemoglobin 10.6 red blood cell count 3.64 platelet count 592696. Normal TSH. Labs on August 25, 2019 with white blood cell count 7.86 red blood count 3.6 hemoglobin 10.4 hematocrit 32.6. MCV 90.6. Platelet count 445808. Creatinine 1.0 and total protein normal at 6.4 normal calcium at 9.4. Serum iron and iron saturation normal. Erythropoi etin level at 12.2. Normal B12 and folic acid. Patient with history of stage 3 chronic kidney disease. Normal erythropoi etin level on labs from August 2019. Inappropri ately normal level given mild anemia. Likely renal associated anemia.Lab s on December 22, 2019 with stable hemoglobin at 10.9. Serum iron 78 and iron saturation 23%. Ferritin 108. Patient returns on June 21, 2020. Will follow up labs today. Discussed with the patient considerat ion for erythropoi etin supplement ation if hemoglobin were to decrease below 10.0. Currently slim margin of benefit at this point when weighing risk of pushing hemoglobin artificial ly above 11.0. Discussed with the patient erythropoi etin supplement ation risk if hemoglobin is artificial ly pushed above 12.0. Labs on October 29, 2022 with serum iron 107. Iron saturation 26%. White blood cell count 5.59. Red blood count 3.81. Hemoglobin 11.1. Hematocrit 33.3. MCV 87. Patient returns on February 14, 2023. Concern for renal associated anemia. Will follow up additional labs today. Chronic ki dney disease stage 3 [id number] N18.30 Labs with evidence of stage 3 chronic kidney disease. Will follow up additional labs today. [id number] Izabella Diez PA-C [facility] [address] [place] [address] 04/22/2024 10:19:04 04/22/2024 10:43:14 Anemia in chronic kidney disease [id number] D63.1 Labs on July 27, 2022 with stable hemoglobin 11.8 normal iron studies normal ferritin. Will continue with observatio n.Patient presents to clinic on October 29, 2022. Patient denies any new acute complaints . Will repeat labs for continued hopeful observatio n. Patient has not needed erythropoi etin supplement ation due to hemoglobin consistent ly > 10. Labs on February 14, 2023 with stable hemoglobin 11.3 hematocrit 39.9 MCV 87.9 normal iron studies normal ferritin normal B12 and folic acid. Erythropoi etin inappropri ately normal indicating renal associated anemia. Would not recommend erythropoi etin supplement ation as hemoglobin has consistent ly remained above 10. Patient presents to clinic on August 16, 2023. Patient denies any new acute complaints . Discussed renal associated anemia and will initiate erythropoi etin injections once hemoglobin consistent ly less than 10. Patient presents to clinic on December 18, 2023. Patient denies any new acute complaints . Patient denies any new fatigue. Will repeat labs today. Patient presents to clinic on April 22, 2024. Patient denies any new acute complaints . will repeat labs for continued observatio n. If hemoglobin less than 10 will initiate erythropoi etin supplement ation. Anemia [id number] D64.9 Labs on August 06, 2019. White blood cell count 7.0 red blood count 3.68. Hemoglobin 10.9 and hematocrit 33.1. Platelet count 547952. No immature cells seen on al. Serum iron normal at 68. Iron binding capacity of 314. Labs on July 23, 2019 with GFR at 46 and creatinine at 1.2. Consistent with stage 3 chronic kidney disease. Hemoglobin 10.6 red blood cell count 3.64 platelet count . Normal TSH. Labs on August 25, 2019 with white blood cell count 7.86 red blood count 3.6 hemoglobin 10.4 hematocrit 32.6. MCV 90.6. Platelet count 920976. Creatinine 1.0 and total protein normal at 6.4 normal calcium at 9.4. Serum iron and iron saturation normal. Erythropoi etin level at 12.2. Normal B12 and folic acid. Patient with history of stage 3 chronic kidney disease. Normal erythropoi etin level on labs from August 2019. Inappropri ately normal level given mild anemia. Likely renal associated anemia.Lab s on December 22, 2019 with stable hemoglobin at 10.9. Serum iron 78 and iron saturation 23%. Ferritin 108. Patient returns on June 21, 2020. Will follow up labs today. Discussed with the patient considerat ion for erythropoi etin supplement ation if hemoglobin were to decrease below 10.0. Currently slim margin of benefit at this point when weighing risk of pushing hemoglobin artificial ly above 11.0. Discussed with the patient erythropoi etin supplement ation risk if hemoglobin is artificial ly pushed above 12.0. Labs on October 29, 2022 with serum iron 107. Iron saturation 26%. White blood cell count 5.59. Red blood count 3.81. Hemoglobin 11.1. Hematocrit 33.3. MCV 87. Patient returns on February 14, 2023. Concern for renal associated anemia. Will follow up additional labs today. Chronic ki dney disease stage 3 [id number] N18.30 Labs with evidence of stage 3 chronic kidney disease. Will follow up additional labs today. Health Concerns Section Related Observation LastModified by Organization Detai ls LastModified Time None Recorded Concern Status LastModified by Organization Details LastModified Time None Recorded Advance Directives Directive N: Payers Insurance Date Sequence Insurance Name Policy Number Policy Lopez Covered Member ID Lopez Member ID Guarantor Name 04/19/2024 2 FOR LIFE ( - MEDICARE SUPPLEMENT) Stacy Cancino [id number] Stacy Cancino 04/19/2024 1 [place]ARE[place] Stacy Cancino [id number] Stacy Cancino Notes Date Note Type Note Provider Name and Address Organization Details Recorded Time 10/29/2022 text/html 76 yo F returns for evaluation of anemia and chronic kidney disease.Patient recently had labs by primary care physician on August 06, 2019. White blood cell count 7.0 red blood count 3.68. Hemoglobin 10.9 and hematocrit 33.1. Platelet count 265214. No immature cells seen on differential. Serum iron normal at 68. Iron binding capacity of 314.Labs on July 23, 2019 with GFR at 46 and creatinine at 1.2. Consistent with stage 3 chronic kidney disease. Hemoglobin 10.6 red blood cell count 3.64 platelet count [id number]. Normal TSH.Labs on August 25, 2019 with white blood cell count 7.86 red blood count 3.6 hemoglobin 10.4 hematocrit 32.6. MCV 90.6. Platelet count [id number]. Creatinine 1.0 and total protein normal at 6.4 normal calcium at 9.4. Serum iron and iron saturation normal. Erythropoietin level at 12.2. Normal B12 and folic acid.Patient with history of stage 3 chronic kidney disease. Normal erythropoietin level on labs from August 2019. Inappropriately normal level given mild anemia. Likely renal associated anemia.Labs performed on December 22, 2019 with white blood cell count 6.67. Hemoglobin 10.9 and hematocrit 34.3. Platelet [id number]. Serum iron 78 and iron saturation 23%. Ferritin 108.Patient returns on June 21, 2020. Patient is feeling well. No acute changes. Will repeat labs today. Discussed with the patient consideration for erythropoietin supplementation if hemoglobin were to decrease below 10.0. Currently slim margin of benefit at this point when weighing risk of pushing hemoglobin artificially above 11.0. Discussed with the patient erythropoietin supplementation risk if hemoglobin is artificially pushed above 12.0.Labs on June 21, 2020 with white blood cell count 6.4. Red blood count 3.78. Hemoglobin 11.1 and hematocrit 33.1. Iron studies normal. Platelet count 806480. Normal differential. Renal function with creatinine 1.1.Patient returns on December 20, 2020. will repeat labs today.Labs on December 20, 2020 with white blood cell count 6.34. Red blood count 4.19. Hemoglobin 12.3 and hematocrit 36.8. Iron studies normal. Platelet count 067470. Normal differential. Normal ferritin. Renal function with creatinine 1.1.Patient returns to clinic on January 09, 2022. Patient denies any acute complaints. Will repeat labs and FU with recommendations.Labs on January 09, 2022 with stable CBC and CMP. Stable hemoglobin at 11.6. Normal iron studies and ferritin. Normal vitamin B12 and folic acid. Patient returns to clinic on April 26, 2022. Patient denies any new acute complaints. Will repeat labs with continue observation.Labs on June 08, 2022 with stable hemoglobin 11.1 hematocrit 33.5. Normal iron studies normal B12 and folic acid. Will continue with observation. Patient returns to clinic on July 27, 2022. Patient denies any new acute complaints. Discussed with patient repeating labs for continued hopeful observation. Labs on July 27, 2022 with stable hemoglobin 11.8 normal iron studies normal ferritin. Will continue with observation.Patient presents to clinic on October 29, 2022. Patient denies any new acute complaints. Will repeat labs for continued hopeful observation. Patient has not needed erythropoietin supplementation due to hemoglobin consistently > 10. Izabella Diez PA-C [address], [place], [address], [place] [facility] [place] 10/29/2022 10:32:24 02/14/2023 text/html 77 yo F returns for evaluation of anemia and chronic kidney disease. Patient recently had labs by primary care physician on August 06, 2019. White blood cell count 7.0 red blood count 3.68. Hemoglobin 10.9 and hematocrit 33.1. Platelet count 894168. No immature cells seen on differential. Serum iron normal at 68. Iron binding capacity of 314.Labs on July 23, 2019 with GFR at 46 and creatinine at 1.2. Consistent with stage 3 chronic kidney disease. Hemoglobin 10.6 red blood cell count 3.64 platelet count . Normal TSH.Labs on August 25, 2019 with white blood cell count 7.86 red blood count 3.6 hemoglobin 10.4 hematocrit 32.6. MCV 90.6. Platelet count [id number]. Creatinine 1.0 and total protein normal at 6.4 normal calcium at 9.4. Serum iron and iron saturation normal. Erythropoietin level at 12.2. Normal B12 and folic acid.Patient with history of stage 3 chronic kidney disease. Normal erythropoietin level on labs from August 2019. Inappropriately normal level given mild anemia. Likely renal associated anemia.Labs performed on December 22, 2019 with white blood cell count 6.67. Hemoglobin 10.9 and hematocrit 34.3. Platelet 309701. Serum iron 78 and iron saturation 23%. Ferritin 108.Patient returns on June 21, 2020. Patient is feeling well. No acute changes. Will repeat labs today. Discussed with the patient consideration for erythropoietin supplementation if hemoglobin were to decrease below 10.0. Currently slim margin of benefit at this point when weighing risk of pushing hemoglobin artificially above 11.0. Discussed with the patient erythropoietin supplementation risk if hemoglobin is artificially pushed above 12.0.Labs on June 21, 2020 with white blood cell count 6.4. Red blood count 3.78. Hemoglobin 11.1 and hematocrit 33.1. Iron studies normal. Platelet count 462915. Normal differential. Renal function with creatinine 1.1.Patient returns on December 20, 2020. will repeat labs today.Labs on December 20, 2020 with white blood cell count 6.34. Red blood count 4.19. Hemoglobin 12.3 and hematocrit 36.8. Iron studies normal. Platelet count 603811. Normal differential. Normal ferritin. Renal function with creatinine 1.1.Patient returns to clinic on January 09, 2022. Patient denies any acute complaints. Will repeat labs and FU with recommendations.Labs on January 09, 2022 with stable CBC and CMP. Stable hemoglobin at 11.6. Normal iron studies and ferritin. Normal vitamin B12 and folic acid. Patient returns to clinic on April 26, 2022. Patient denies any new acute complaints. Will repeat labs with continue observation.Labs on June 08, 2022 with stable hemoglobin 11.1 hematocrit 33.5. Normal iron studies normal B12 and folic acid. Will continue with observation. Patient returns to clinic on July 27, 2022. Patient denies any new acute complaints. Discussed with patient repeating labs for continued hopeful observation. Labs on July 27, 2022 with stable hemoglobin 11.8 normal iron studies normal ferritin. Will continue with observation.Patient presents to clinic on October 29, 2022. Patient denies any new acute complaints. Will repeat labs for continued hopeful observation. Patient has not needed erythropoietin supplementation due to hemoglobin consistently > 10. Labs on October 29, 2022 with serum iron 107. Iron saturation 26%. White blood cell count 5.59. Red blood count 3.81. Hemoglobin 11.1. Hematocrit 33.3. MCV 87. Patient returns on February 14, 2023. Concern for renal associated anemia. Will follow up additional labs today. Mauricio Guzmán MD [address], [place], [address], [place] [facility] [place] 02/14/2023 10:28:49 08/16/2023 text/html 78 yo F returns for evaluation of anemia and chronic kidney disease. Patient recently had labs by primary care physician on August 06, 2019. White blood cell count 7.0 red blood count 3.68. Hemoglobin 10.9 and hematocrit 33.1. Platelet count 966932. No immature cells seen on differential. Serum iron normal at 68. Iron binding capacity of 314.Labs on July 23, 2019 with GFR at 46 and creatinine at 1.2. Consistent with stage 3 chronic kidney disease. Hemoglobin 10.6 red blood cell count 3.64 platelet count 332341. Normal TSH.Labs on August 25, 2019 with white blood cell count 7.86 red blood count 3.6 hemoglobin 10.4 hematocrit 32.6. MCV 90.6. Platelet count 367619. Creatinine 1.0 and total protein normal at 6.4 normal calcium at 9.4. Serum iron and iron saturation normal. Erythropoietin level at 12.2. Normal B12 and folic acid.Patient with history of stage 3 chronic kidney disease. Normal erythropoietin level on labs from August 2019. Inappropriately normal level given mild anemia. Likely renal associated anemia.Labs performed on December 22, 2019 with white blood cell count 6.67. Hemoglobin 10.9 and hematocrit 34.3. Platelet 380274. Serum iron 78 and iron saturation 23%. Ferritin 108.Patient returns on June 21, 2020. Patient is feeling well. No acute changes. Will repeat labs today. Discussed with the patient consideration for erythropoietin supplementation if hemoglobin were to decrease below 10.0. Currently slim margin of benefit at this point when weighing risk of pushing hemoglobin artificially above 11.0. Discussed with the patient erythropoietin supplementation risk if hemoglobin is artificially pushed above 12.0.Labs on June 21, 2020 with white blood cell count 6.4. Red blood count 3.78. Hemoglobin 11.1 and hematocrit 33.1. Iron studies normal. Platelet count 368919. Normal differential. Renal function with creatinine 1.1.Patient returns on December 20, 2020. will repeat labs today.Labs on December 20, 2020 with white blood cell count 6.34. Red blood count 4.19. Hemoglobin 12.3 and hematocrit 36.8. Iron studies normal. Platelet count 726194. Normal differential. Normal ferritin. Renal function with creatinine 1.1.Patient returns to clinic on January 09, 2022. Patient denies any acute complaints. Will repeat labs and FU with recommendations.Labs on January 09, 2022 with stable CBC and CMP. Stable hemoglobin at 11.6. Normal iron studies and ferritin. Normal vitamin B12 and folic acid. Patient returns to clinic on April 26, 2022. Patient denies any new acute complaints. Will repeat labs with continue observation.Labs on June 08, 2022 with stable hemoglobin 11.1 hematocrit 33.5. Normal iron studies normal B12 and folic acid. Will continue with observation. Patient returns to clinic on July 27, 2022. Patient denies any new acute complaints. Discussed with patient repeating labs for continued hopeful observation. Labs on July 27, 2022 with stable hemoglobin 11.8 normal iron studies normal ferritin. Will continue with observation.Patient presents to clinic on October 29, 2022. Patient denies any new acute complaints. Will repeat labs for continued hopeful observation. Patient has not needed erythropoietin supplementation due to hemoglobin consistently > 10. Labs on October 29, 2022 with serum iron 107. Iron saturation 26%. White blood cell count 5.59. Red blood count 3.81. Hemoglobin 11.1. Hematocrit 33.3. MCV 87. Patient returns on February 14, 2023. Concern for renal associated anemia. Will follow up additional labs today.Labs on February 14, 2023 with stable hemoglobin 11.3 hematocrit 39.9 MCV 87.9 normal iron studies normal ferritin normal B12 and folic acid. Erythropoietin inappropriately normal indicating renal associated anemia. Would not recommend erythropoietin supplementation as hemoglobin has consistently remained above 10. Patient presents to clinic on August 16, 2023. Patient denies any new acute complaints. Discussed renal associated anemia and will initiate erythropoietin injections once hemoglobin consistently less than 10. Izabella Diez PA-C [address], [place], [address], [facility] [place] 08/16/2023 11:20:59 12/18/2023 text/html 78 yo F returns for evaluation of anemia and chronic kidney disease. Patient recently had labs by primary care physician on August 06, 2019. White blood cell count 7.0 red blood count 3.68. Hemoglobin 10.9 and hematocrit 33.1. Platelet count 734343. No immature cells seen on differential. Serum iron normal at 68. Iron binding capacity of 314.Labs on July 23, 2019 with GFR at 46 and creatinine at 1.2. Consistent with stage 3 chronic kidney disease. Hemoglobin 10.6 red blood cell count 3.64 platelet count 280606. Normal TSH.Labs on August 25, 2019 with white blood cell count 7.86 red blood count 3.6 hemoglobin 10.4 hematocrit 32.6. MCV 90.6. Platelet count 672475. Creatinine 1.0 and total protein normal at 6.4 normal calcium at 9.4. Serum iron and iron saturation normal. Erythropoietin level at 12.2. Normal B12 and folic acid.Patient with history of stage 3 chronic kidney disease. Normal erythropoietin level on labs from August 2019. Inappropriately normal level given mild anemia. Likely renal associated anemia.Labs performed on December 22, 2019 with white blood cell count 6.67. Hemoglobin 10.9 and hematocrit 34.3. Platelet 956910. Serum iron 78 and iron saturation 23%. Ferritin 108.Patient returns on June 21, 2020. Patient is feeling well. No acute changes. Will repeat labs today. Discussed with the patient consideration for erythropoietin supplementation if hemoglobin were to decrease below 10.0. Currently slim margin of benefit at this point when weighing risk of pushing hemoglobin artificially above 11.0. Discussed with the patient erythropoietin supplementation risk if hemoglobin is artificially pushed above 12.0.Labs on June 21, 2020 with white blood cell count 6.4. Red blood count 3.78. Hemoglobin 11.1 and hematocrit 33.1. Iron studies normal. Platelet count 293916. Normal differential. Renal function with creatinine 1.1.Patient returns on December 20, 2020. will repeat labs today.Labs on December 20, 2020 with white blood cell count 6.34. Red blood count 4.19. Hemoglobin 12.3 and hematocrit 36.8. Iron studies normal. Platelet count 044444. Normal differential. Normal ferritin. Renal function with creatinine 1.1.Patient returns to clinic on January 09, 2022. Patient denies any acute complaints. Will repeat labs and FU with recommendations.Labs on January 09, 2022 with stable CBC and CMP. Stable hemoglobin at 11.6. Normal iron studies and ferritin. Normal vitamin B12 and folic acid. Patient returns to clinic on April 26, 2022. Patient denies any new acute complaints. Will repeat labs with continue observation.Labs on June 08, 2022 with stable hemoglobin 11.1 hematocrit 33.5. Normal iron studies normal B12 and folic acid. Will continue with observation. Patient returns to clinic on July 27, 2022. Patient denies any new acute complaints. Discussed with patient repeating labs for continued hopeful observation. Labs on July 27, 2022 with stable hemoglobin 11.8 normal iron studies normal ferritin. Will continue with observation.Patient presents to clinic on October 29, 2022. Patient denies any new acute complaints. Will repeat labs for continued hopeful observation. Patient has not needed erythropoietin supplementation due to hemoglobin consistently > 10. Labs on October 29, 2022 with serum iron 107. Iron saturation 26%. White blood cell count 5.59. Red blood count 3.81. Hemoglobin 11.1. Hematocrit 33.3. MCV 87. Patient returns on February 14, 2023. Concern for renal associated anemia. Will follow up additional labs today.Labs on February 14, 2023 with stable hemoglobin 11.3 hematocrit 39.9 MCV 87.9 normal iron studies normal ferritin normal B12 and folic acid. Erythropoietin inappropriately normal indicating renal associated anemia. Would not recommend erythropoietin supplementation as hemoglobin has consistently remained above 10. Patient presents to clinic on August 16, 2023. Patient denies any new acute complaints. Discussed renal associated anemia and will initiate erythropoietin injections once hemoglobin consistently less than 10. Patient presents to clinic on December 18, 2023. Patient denies any new acute complaints. Patient denies any new fatigue. Will repeat labs today. Izabella Diez PA-C [address], [place], [address], [place] [facility] [place] 12/18/2023 12:14:44 04/22/2024 text/html 79 yo F returns for evaluation of anemia and chronic kidney disease. Patient recently had labs by primary care physician on August 06, 2019. White blood cell count 7.0 red blood count 3.68. Hemoglobin 10.9 and hematocrit 33.1. Platelet count 399117. No immature cells seen on differential. Serum iron normal at 68. Iron binding capacity of 314.Labs on July 23, 2019 with GFR at 46 and creatinine at 1.2. Consistent with stage 3 chronic kidney disease. Hemoglobin 10.6 red blood cell count 3.64 platelet count 995104. Normal TSH.Labs on August 25, 2019 with white blood cell count 7.86 red blood count 3.6 hemoglobin 10.4 hematocrit 32.6. MCV 90.6. Platelet count 739114. Creatinine 1.0 and total protein normal at 6.4 normal calcium at 9.4. Serum iron and iron saturation normal. Erythropoietin level at 12.2. Normal B12 and folic acid.Patient with history of stage 3 chronic kidney disease. Normal erythropoietin level on labs from August 2019. Inappropriately normal level given mild anemia. Likely renal associated anemia.Labs performed on December 22, 2019 with white blood cell count 6.67. Hemoglobin 10.9 and hematocrit 34.3. Platelet 284567. Serum iron 78 and iron saturation 23%. Ferritin 108.Patient returns on June 21, 2020. Patient is feeling well. No acute changes. Will repeat labs today. Discussed with the patient consideration for erythropoietin supplementation if hemoglobin were to decrease below 10.0. Currently slim margin of benefit at this point when weighing risk of pushing hemoglobin artificially above 11.0. Discussed with the patient erythropoietin supplementation risk if hemoglobin is artificially pushed above 12.0.Labs on June 21, 2020 with white blood cell count 6.4. Red blood count 3.78. Hemoglobin 11.1 and hematocrit 33.1. Iron studies normal. Platelet count 923817. Normal differential. Renal function with creatinine 1.1.Patient returns on December 20, 2020. will repeat labs today.Labs on December 20, 2020 with white blood cell count 6.34. Red blood count 4.19. Hemoglobin 12.3 and hematocrit 36.8. Iron studies normal. Platelet count 614740. Normal differential. Normal ferritin. Renal function with creatinine 1.1.Patient returns to clinic on January 09, 2022. Patient denies any acute complaints. Will repeat labs and FU with recommendations.Labs on January 09, 2022 with stable CBC and CMP. Stable hemoglobin at 11.6. Normal iron studies and ferritin. Normal vitamin B12 and folic acid. Patient returns to clinic on April 26, 2022. Patient denies any new acute complaints. Will repeat labs with continue observation.Labs on June 08, 2022 with stable hemoglobin 11.1 hematocrit 33.5. Normal iron studies normal B12 and folic acid. Will continue with observation. Patient returns to clinic on July 27, 2022. Patient denies any new acute complaints. Discussed with patient repeating labs for continued hopeful observation. Labs on July 27, 2022 with stable hemoglobin 11.8 normal iron studies normal ferritin. Will continue with observation.Patient presents to clinic on October 29, 2022. Patient denies any new acute complaints. Will repeat labs for continued hopeful observation. Patient has not needed erythropoietin supplementation due to hemoglobin consistently > 10. Labs on October 29, 2022 with serum iron 107. Iron saturation 26%. White blood cell count 5.59. Red blood count 3.81. Hemoglobin 11.1. Hematocrit 33.3. MCV 87. Patient returns on February 14, 2023. Concern for renal associated anemia. Will follow up additional labs today.Labs on February 14, 2023 with stable hemoglobin 11.3 hematocrit 39.9 MCV 87.9 normal iron studies normal ferritin normal B12 and folic acid. Erythropoietin inappropriately normal indicating renal associated anemia. Would not recommend erythropoietin supplementation as hemoglobin has consistently remained above 10. Patient presents to clinic on August 16, 2023. Patient denies any new acute complaints. Discussed renal associated anemia and will initiate erythropoietin injections once hemoglobin consistently less than 10. Patient presents to clinic on December 18, 2023. Patient denies any new acute complaints. Patient denies any new fatigue. Will repeat labs today. Patient presents to clinic on April 22, 2024. Patient denies any new acute complaints. will repeat labs for continued observation. If hemoglobin less than 10 will initiate erythropoietin supplementation. Izabella Diez PA-C [address], [place], [address], [place] [facility] [place] 04/22/2024 10:52:29 OBGyn Episode No OBEpisode recorded.
[2024-07-15 10:45] VITALS: BP 100/54; PULSE 84; RESP 18; TEMP 36.4; O2SAT 98
[2024-07-15] MEDS: DENOSUMAB 60 MG/ML SYRINGE SUBCUT (10:45)
== END 2024-07-15 11:00 | disposition home or self-care (01) ==
LOC: INF 10:33
PROVIDERS: PCP Family Medicine; Visit Provider Family Medicine
DX: M81.0 Age-related osteoporosis without current pathological fracture (principal)
CPT/HCPCS: 96372; J0897

== ENCOUNTER 2024-12-25 12:50 | Outpatient (CLI) | payer MEDICARE, OTHER, SELFPAY ==
--- OUTSIDE RECORDS SUMMARY | 2024-12-25 12:55 | XMS_ITS | Encounter Summary ---
[facility] Address [address] [place] [address] Care Team Providers Care Transcription Name Role Phone Opal Tanner Primary Care Provider [phone] Encounter Details Date Type Department Care Team (Late st Contact Info) Description 10/15/2024 Results Follow-Up [facility] [address] [place] [address] Melani Ferreira MD [address] [place] [address] Social History Tobacco Use Types Packs/Day Years Used Date Smoking Tobacco: Never Passive Smoke Exposure: Never Smokeless Tobacco: Never Alcohol Use Standard Drinks/Week Comments Never 0 (1 standard drink = 0.6 oz pur e alcohol) AUDIT-C Answer Date Recorded Q1: How often do you have a drink containing alcohol? Never 07/29/2024 Q2: How many drinks containi ng alcohol do you have on a typical day when you are drinking? Patient does not drink Q3: How often do you have si x or more drinks on one occasion? Never 07/29/2024 Abuse Screen Answer Date Recorded Feels Unsafe at Home or Work/School no 07/29/2024 Feels Threatened by Someone no 07/19 Does Anyone Try to Keep You From Having Contact with Others or Doing Things Outside Your Home? no 07/29/2024 Physical Signs of Abuse Present no 07/29/2024 Housing Stability Answer Date Recorded Current Living Arrangements home 07/19 Potentially Unsafe Housing Conditions Not on drea e 07/29/2024 Disabilities Answer Date Recorded Difficulty Concentrating, Remembering or Making Decisions no 07/29/2024 Difficulty Managing Errands Independently no 07/29/2024 Comments Unknown Sex and Gender Information Value Date Recorded Sex Assigned at Female 05/02/2024 5:40 PM EDT Legal Sex Female 3:45 PM EST Gender Identity Not on file Sexual Orientation Straight 05/02/2024 5: 40 PM EDT documented as of this encounter Plan of Treatment Upcoming Encounters Date Type Department Care Team (Late st Contact Info) Description 04/12/2025 12:45 PM EST Office Visit [facility] [address] [id number] Melani Ferreira MD [address] [place] [address] documented as of this encounter Visit Diagnoses Not on filedocumented in this encounter Care Teams Transcription Relationship Specialty Start Date End Date Opal Tanner DO [address] [place] [address] PCP - General Family Medicine 05/29/22 documented as of this encounter
--- OUTSIDE RECORDS SUMMARY | 2024-12-25 12:55 | XMS_ITS | Encounter Summary ---
[facility] [address] [place] [address] Care Team Providers Care Production Machinist Name Role Phone Opal Tanner Primary Care Provider [phone] Reason for Visit * Reason Onset Date Comments Med Refill 11/12/2024 Encounter Details Date Type Department Care Team (Late st Contact Info) Description 11/12/2024 Refill [facility] [address] [place] [address] Ethel Mosley, FRAN [address] [place] [address] [place] [address] Med Refill Social History Tobacco Use Types Packs/Day Years [...] Description 04/12/2025 12:45 PM EST Office Visit [facility] [address] [place] [address] Melani Ferreira MD [address] [place] [address] documented as of this encounter Visit Diagnoses Not on filedocumented in this encounter Care Teams Production Machinist Relationship Specialty Start Date End Date Opal Tanner DO [facility] [place] [address] PCP - General Family Medicine 05/29/22 documented as of this encounter
--- OUTSIDE RECORDS SUMMARY | 2024-12-25 12:55 | XMS_ITS | Encounter Summary ---
Author Organization [employer] ([place], [place], [place], [place], [place]) Address [address] [place] [address] Care Team Providers Care Media Relations Associate Name Role Phone Unavailable Primary Care Provider Unavailabl e Encounter Details Date Type Department Care Team (Late st Contact Info) Description 04/09/2019 Transcribed Document [facility] [place] [facility] [address] [place] [address] ProviderKarol MD [address] [place] [address] Social History Tobacco Use Types Packs/Day Years Used Date Smoking Tobacco: Never Assessed Comments Unknown Sex and Gender Information Value Date Recorded Sex Assigned at Not on file Legal Sex Female 3:25 PM CDT Gender Identity Not on file Sexual Orientation Not on file documented as of this encounter Miscellaneous Notes * Cerner Conversion Note - Karol Flores MD - 04/09/2019 3:01 PM SHELTER DIRECTOR [facility] [place] [address] STACY CANCINO :1945 Visit Time:04/09/2019 Your Visit Summary Your Care Team Admitting Physician - VERONA FERREIRA MD Attending Physician - VERONA FERREIRA MD Primary Care Physician - ADAM MCCOLLUM PA-TESFAYE Referring Physician - VERONA FERREIRA MD Your Diagnosis Other forms of angina pectoris, Other forms of angina pectoris Discharge Vitals Temperature 15.6 ??C Heart Rate (Monitored) 60 Respiratory Rate 18 Blood Pressure 135/62 What to do next Instructions From Your Care Team Diet after Discharge: Resume usual diet as tolerated Activity after Discharge: Rest and relax today, No strenuous activity, Driving Restrictions: No driving for 24 hours. Showering/Bathing: May shower in 2 days Medications: No changes to your current home medications. Dressing Instructions: You can remove the dressing in 24 hours. however leave the steri-strips in place. See Dr. Ferreira's discharge instruction sheet. Follow-Up Appointments Follow Up with VERONA FERREIRA MD When Within 1 week Comments keep your appointment as previously scheduled with Dr. Ferreira on 04/15/2019 Where: [address] [place] [address]- Medications What How Much When Instructions Next Dose aspirin (aspirin 81 mg oral tablet) 1 Tablet(s) Oral Every Day tomorrow atorvastatin (atorvastatin 10 mg oral tablet) 0.5 Tablet(s) Oral Every Day today carvedilol (Coreg 25 mg oral tablet) 1 Tablet(s) Oral Two Times A Day today furosemide (Lasix 20 mg oral tablet) 1 Tablet(s) Oral Every Day as needed for Edema as needed levothyroxine (levothyroxine 50 mcg (0.05 mg) oral tablet) 1 Tablet(s) Oral Every Day today lisinopril (lisinopril 20 mg oral tablet) 1 Tablet(s) Oral Every Day today magnesium oxide (magnesium oxide 400 mg (240 mg elemental magnesium) oral tablet) 1 Tablet(s) Oral Two Times A Day today mexiletine (mexiletine 150 mg oral capsule) 1 Capsule(s) Oral Three Times A Day today multivitamin with minerals (Centrum Silver Ultra Women's) 1 Tablet(s) Oral Every Day today omeprazole 40 Milligram(s) Oral Every Day today potassium chloride (potassium chloride 10 mEq oral capsule, extended release) 1 Capsule(s) Oral Every Day as needed for Other (See Comment) when she takes lasix as needed spironolactone (spironolactone 25 mg oral tablet) 1 Tablet(s) Oral Every Day today Take your medications faithfully. Do NOT skip medication. Do NOT stop taking medications without the direction of a physician. Carry a list of your medications with you at all times, and take this medication list with you to your first follow up visit. Report any side effects. Avoid herbal remedies unless discussed with your physician. As part of your treatment plan, your physician may have prescribed a limited course of a controlled substance. This medication may be given to help people with moderate or severe pain or for other medical conditions, but there are risks involved with treatment. Common side effects may include nausea, constipation, drowsiness, sweating, itching, dry mouth, and rash. More serious side effects may include cognitive and motor impairment, like problems with thinking, concentrating, alertness, and movement (e.g. slowed reflexes), and driving and operating heavy machinery can be dangerous. It is important for you to talk to your physician if you have these side effects or questions. These controlled substances can produce physical dependence and be habit-forming if taken for an extended period of time, which means that the body has gotten used to them and may experience withdrawal symptoms if they are abruptly stopped. Withdrawal symptoms can include runny nose, sweating, goose bumps, diarrhea, abdominal cramping, rapid heartbeat, difficulty sleeping, and nervousness. Please dispose of unused and medications per your retail pharmacy guidance. Allergies No Known Allergies Immunizations This Visit No Immunizations Found Education Materials Pacemaker Battery Change, Care After This sheet gives you information about how to care for yourself after your procedure. Your health care provider may also give you more specific instructions. If you have problems or questions, contact your health care provider. What can I expect after the procedure? After your procedure, it is common to have: ??? Pain or soreness at the site where the pacemaker was inserted. ??? Swelling at the site where the pacemaker was inserted. Follow these instructions at home: Incision care ??? Keep the incision clean and dry. ? Do not take baths, swim, or use a hot tub until your health care provider approves. ? You may shower the day after your procedure, or as directed by your health care provider. ? Pat the area dry with a clean towel. Do not rub the area. This may cause bleeding. ??? Follow instructions from your health care provider about how to take care of your incision. Make sure you: ? Wash your hands with soap and water before you change your bandage (dressing). If soap and water are not available, use hand automatic chief. ? Change your dressing as told by your health care provider. ? Leave stitches (sutures), skin glue, or adhesive strips in place. These skin closures may need to stay in place for 2 weeks or longer. If adhesive strip edges start to loosen and curl up, you may trim the loose edges. Do not remove adhesive strips completely unless your health care provider tells you to do that. ??? Check your incision area every day for signs of infection. Check for: ? More redness, swelling, or pain. ? More fluid or blood. ? Warmth. ? Pus or a bad smell. Activity ??? Do not lift anything that is heavier than 10 lb (4.5 kg) until your health care provider says it is okay to do so. ??? For the first 2 weeks, or as long as told by your health care provider: ? Avoid lifting your left arm higher than your shoulder. ? Be gentle when you move your arms over your head. It is okay to raise your arm to comb your hair. ? Avoid strenuous exercise. ??? Ask your health care provider when it is okay to: ? Resume your normal activities. ? Return to work or school. ? Resume sexual activity. Eating and drinking ??? Eat a heart-healthy diet. This should include plenty of fresh fruits and vegetables, whole grains, low-fat dairy products, and lean protein like chicken and fish. ??? Limit alcohol intake to no more than 1 drink a day for non- women and 2 drinks a day for men. One drink equals 12 oz of beer, 5 oz of wine, or 1?? oz of hard liquor. ??? Check ingredients and nutrition facts on packaged foods and beverages. Avoid the following types of food: ? Food that is high in salt (sodium). ? Food that is high in saturated fat, like full-fat dairy or red meat. ? Food that is high in trans fat, like fried food. ? Food and drinks that are high in sugar. Lifestyle ??? Do not use any products that contain nicotine or tobacco, such as cigarettes and e-cigarettes. If you need help quitting, ask your health care provider. ??? Take steps to manage and control your weight. ??? Get regular exercise. Aim for 150 minutes of moderate-intensity exercise (such as walking or yoga) or 75 minutes of vigorous exercise (such as running or swimming) each week. ??? Manage other health problems, such as diabetes or high blood pressure. Ask your health care provider how you can manage these conditions. General instructions ??? Do not drive for 24 hours after your procedure if you were given a medicine to help you relax (sedative). ??? Take vxwd-jsa-wtclwln and prescription medicines only as told by your health care provider. ??? Avoid putting pressure on the area where the pacemaker was placed. ??? If you need an MRI after your pacemaker has been placed, be sure to tell the health care provider who orders the MRI that you have a pacemaker. ??? Avoid close and prolonged exposure to electrical devices that have strong magnetic fitzgerald. These include: ? Cell phones. Avoid keeping them in a pocket near the pacemaker, and try using the ear opposite the pacemaker. ? MP3 players. ? Household appliances, like microwaves. ? Metal detectors. ? Electric generators. ? High-tension wires. ??? Keep all follow-up visits as directed by your health care provider. This is important. Contact a health care provider if: ??? You have pain at the incision site that is not relieved by zpir-qds-biicitp or prescription medicines. ??? You have any of these around your incision site or coming from it: ? More redness, swelling, or pain. ? Fluid or blood. ? Warmth to the touch. ? Pus or a bad smell. ??? You have a fever. ??? You feel brief, occasional palpitations, light-headedness, or any symptoms that you think might be related to your heart. Get help right away if: ??? You experience chest pain that is different from the pain at the pacemaker site. ??? You develop a red streak that extends above or below the incision site. ??? You experience shortness of breath. ??? You have palpitations or an irregular heartbeat. ??? You have light-headedness that does not go away quickly. ??? You faint or have dizzy spells. ??? Your pulse suddenly drops or increases rapidly and does not return to normal. ??? You begin to gain weight and your legs and ankles swell. Summary ??? After your procedure, it is common to have pain, soreness, and some swelling where the pacemaker was inserted. ??? Make sure to keep your incision clean and dry. Follow instructions from your health care provider about how to take care of your incision. ??? Check your incision every day for signs of infection, such as more pain or swelling, pus or a bad smell, warmth, or leaking fluid and blood. ??? Avoid strenuous exercise and lifting your left arm higher than your shoulder for 2 weeks, or as long as told by your health care provider. This information is not intended to replace advice given to you by your health care provider. Make sure you discuss any questions you have with your health care provider. Document Released: 11/25/2013 Document Revised: 12/27/2016 Document Reviewed: 12/27/2016 [employer] Patient Education ?? 2019 [employer] Moderate Conscious Sedation, Adult, Care After These instructions provide you with information about caring for yourself after your procedure. Your health care provider may also give you more specific instructions. Your treatment has been planned according to current medical practices, but problems sometimes occur. Call your health care provider if you have any problems or questions after your procedure. What can I expect after the procedure? After your procedure, it is common: ??? To feel sleepy for several hours. ??? To feel clumsy and have poor balance for several hours. ??? To have poor judgment for several hours. ??? To vomit if you eat too soon. Follow these instructions at home: For at least 24 hours after the procedure: ??? Do not: ? Participate in activities where you could fall or become injured. ? Drive. ? Use heavy machinery. ? Drink alcohol. ? Take sleeping pills or medicines that cause drowsiness. ? Make important decisions or sign legal documents. ? Take care of children on your own. ??? Rest. Eating and drinking ??? Follow the diet recommended by your health care provider. ??? If you vomit: ? Drink water, juice, or soup when you can drink without vomiting. ? Make sure you have little or no nausea before eating solid foods. General instructions ??? Have a responsible adult stay with you until you are awake and alert. ??? Take eank-gic-nakdqbf and prescription medicines only as told by your health care provider. ??? If you smoke, do not smoke without supervision. ??? Keep all follow-up visits as told by your health care provider. This is important. Contact a health care provider if: ??? You keep feeling nauseous or you keep vomiting. ??? You feel light-headed. ??? You develop a rash. ??? You have a fever. Get help right away if: ??? You have trouble breathing. This information is not intended to replace advice given to you by your health care provider. Make sure you discuss any questions you have with your health care provider. Document Released: 11/25/2013 Document Revised: 07/09/2016 Document Reviewed: 05/26/2016 [employer] Patient Education ?? 2019 [employer] Emergency Awareness and Preventative Care STROKE is an EMERGENCY Every Minute Counts Act FAST and Check for these signs: FACE Does the face look uneven? ARM Does one arm drift down? SPEECH Does their speech sound strange? TIME Call at any sign of stroke Stroke Risk Factors Atrial Fibrillation (irregular heartbeat) Diabetes Family history of stroke Heart Disease Heavy alcohol use High Blood Pressure High Cholesterol Physical inactivity and obesity Smoking Cigarette Smoking The facts are clear, cigarette smoking will shorten your life. Smoking can cause many illnesses along the way. As a healthcare provider, we recommend that you stop smoking. Assistance with quitting is available by contacting [employer]. This is a free resource providing counseling, support, and referral. Or you may contact your personal physician. National Suicide Prevention Lifeline: The National Suicide Prevention Lifeline is a national network of local crisis centers that provides free and confidential emotional support to people in suicidal crisis or emotional distress 24 hours a day, 7 days a week. Don't Wait! Stop a Heart Attack Before it Starts What is a heart attack? A heart attack is damage or to a part of the heart from severely decreased or lack of blood flow to the heart. Over time, arteries can become narrow from the buildup of fat and cholesterol, which is called plaque. The plaque can rupture causing a blood clot to form. When the blood clot forms, the artery can become severely narrowed or completely blocked, causing a heart attack. Heart attack is the leading cause of in the [place]. 85% of muscle damage occurs within the first 2 hours. Delay in the recognition of heart attack symptoms increases the chances of . Know the early symptoms of a heart attack: Nausea Feeling of fullness in chest Jaw Pain Pain that travels down one or both arms Fatigue/being tired Anxiety Back Pain Chest pressure, squeezing, or discomfort Shortness of breath Sweating, or a cold sweat Feeling of impending doom There are unusual signs of a heart attack, too! Women, the elderly, and diabetics may present with atypical symptoms: Fainting/dizziness Weakness Confusion Risk Factors for a Heart Attack Some heart disease risk factors, such as age and family history, cannot be changed. Others, like smoking and lack of exercise, can be changed. Smoking High Cholesterol High Blood Pressure Family History Obesity Age Gender (Males are at higher risk) Lack of Exercise Diabetes Diet Stress Excessive Alcohol Intake If you or someone you know is experiencing the signs and symptoms of a heart attack, DON???T DELAY. Call immediately and seek help. If someone collapses, perform CPR! Do not attempt to drive if you are having symptoms of heart attack. Hands-Only CPR Why Hands-Only CPR? Hands-Only CPR has been shown to be as effective as conventional CPR for cardiac arrests that occur outside of a hospital. Survival depends on immediately receiving CPR from someone nearby. How do you perform Hands-Only CPR? There are two easy steps: Call if you see a teen or adult collapse Push hard and fast in the center of the chest at a beat of 100 beats per minute. Save a life! 4 WAYS TO GET AHEAD OF SEPSIS SEPSIS is a MEDICAL EMERGENCY. Time matters! Infections put you and your family at risk for a life-threatening condition called sepsis. Sepsis is the body's extreme response to an infection. It is life-threatening, and without timely treatment, sepsis can rapidly lead to tissue damage, organ failure, and . Sepsis happens when an infection you already have-in your skin, lungs, urinary tract or somewhere else-triggers a chain reaction throughout your body. 1 PREVENT INFECTIONS Take good care of chronic conditions. Talk to your doctor about getting the recommended vaccines. 2 PRACTICE GOOD HYGIENE Wash your hands frequently. Keep cuts or open sores clean and covered until they are healed. 3 KNOW THE SYMPTOMS Confusion or disorientation Shortness of breath High heart rate Fever, shivering, or feeling very cold Extreme pain or discomfort Clammy or sweaty skin 4 ACT FAST Get medical care IMMEDIATELY if you suspect sepsis or if you have an infection that is not getting better or is getting worse. To learn more about sepsis and how to prevent infections, visit www.cdc.gov/sepsis. Test Results Laboratory or Other Results This Visit (last charted value for your 04/09/2019 visit) Hematology 04/09/2019 11:47 AM Hct: 34.5 % -- Normal range between ( 34.1 and 44.9 ) Hgb: 11.3 g/dL -- Normal range between ( 11.2 and 15.7 ) Platelet Count: 209 K/uL -- Normal range between ( 163 and 369 ) Patient Name:STACY CANCINO I have received and understand this information and was given the opportunity to ask questions. Patient/Camera Repairman Name: Patient/Camera Repairman Signature: Relationship to Patient: Clinician/Hospital Camera Repairman Signature: Date: documented in this encounter Plan of Treatment Not on file documented as of this encounter Visit Diagnoses Not on filedocumented in this encounter
--- OUTSIDE RECORDS SUMMARY | 2024-12-25 12:55 | XMS_ITS | Encounter Summary ---
[facility] Address [address] [place] [address] Care Team Providers Care Furniture Repair Technician Name Role Phone Opal Tanner Primary Care Provider [phone] Reason for Visit * Reason Onset Date Comments Med Refill 11/04/2024 Encounter Details Date Type Department Care Team (Late st Contact Info) Description 11/04/2024 Refill [facility] [address] [place] [address] Ethel Mosley, FRAN [address] [place] [address] [place] [address] Med Refill Social History Tobacco Use Types [...] PM EDT documented as of this encounter Miscellaneous Notes * Telephone Encounter - Ethel Townsend MA - 11/04/2024 8:16 AM EDT Refill request documented in this encounter Plan of Treatment Upcoming Encounters Date Type Department Care Team (Late st Contact Info) Description 04/12/2025 12:45 PM EST Office Visit [facility] [address] [place] [address] Melani Ferreira MD [address] [place], [place] [id number] documented as of this encounter Visit Diagnoses Not on filedocumented in this encounter Care Teams Furniture Repair Technician Relationship Specialty Start Date End Date Opal Tanner DO [address] [place] [address] PCP - General Family Medicine 05/29/22 documented as of this encounter
--- OUTSIDE RECORDS SUMMARY | 2024-12-25 12:55 | XMS_ITS | Clinical Summary ---
Author Organization [facility] Address [address] [place] [address] Care Team Providers Care Breaker Tender Name Role Phone CiroOpal Amy Primary Care Provider [phone] Allergies No known active allergies Medications aspirin 81 MG EC tablet Take 1 tablet by mouth Every Night. Active Synthroid 50 MCG tablet Take 1 tablet by mouth Daily. 3 Active Magnesium Oxide 400 (240 Mg) MG tablet Take 1 tablet by mouth 2 (Two) Times a Day. Active multivitamin with minerals tablet tablet Take 1 tablet by mouth Daily. Active omeprazole (priLOSEC) 40 MG capsule Take 1 capsule by mouth 2 (Two) Times a Day. 3 Active montelukast (SINGULAIR) 10 MG tablet Take 1 tablet by mouth Every Night. Active furosemide (LASIX) 20 MG tablet Take 0.5 tablets by mouth As Needed. Active fluticasone (FLONASE) 50 MCG/ACT nasal spray Administer 2 sprays into the nostril(s) as directed by provider As Needed. 3 Active mexiletine (MEXITIL) 150 MG capsule TAKE 1 CAPSULE THREE TIMES A DAY 270 capsule 3 3 Active Additional Information Patient taking differently:150 mg Oral2 Times Daily, Informant: Self, Reported on 10/12/2024 ferrous sulfate 325 (65 FE) MG tablet Take 1 tablet by mouth Daily With Breakfast. Active vitamin D3 125 MCG (5000 UT) capsule capsule Take 1 capsule by mouth Daily. Active lisinopril (PRINIVIL,ZESTR IL) 20 MG tablet TAKE 1 TABLET DAILY 90 tablet 3 5 Active Misc Natural Products (IBEROGAST PO) Take 1 tablet by mouth 2 (Two) Times a Day. Active VITAMIN E 400 UNIT capsule Take 1 capsule by mouth 2 (Two) Times a Day. Active denosumab (Prolia) 60 MG/ML solution prefilled syringe syringe Inject 1 mL under the skin into the appropriate area as directed Every 6 (Six) Months. Active carvedilol (COREG) 25 MG tablet TAKE 1 TABLET TWICE A DAY 180 tablet 3 5 Active Additional Information Patient taking differently:25 mg Oral,(No frequency reported), 1/2 tab every evening, Informant: Self, Reported on 10/12/2024 spironolactone (ALDACTONE) 25 MG tablet TAKE 1 TABLET DAILY 90 tablet 3 5 Active atorvastatin (LIPITOR) 10 MG tablet Take 0.5 tablets by mouth Daily. 45 tablet 3 5 Active Active Problems Problem Noted Date Diagnosed Date Elective replacement indicated for pacemaker 02/2024 Ventricular tachycardia 06/17/2024 BISHOP (obstructive sleep apnea) 10/15/2022 Assessment & Plan (06/17/2023 11:50 AM EDT): A new PAP machine was ordered at last office visit a month ago and patient is here today for 31-90-day compliance visit. Patient is doing very well on PAP therapy with good control and compliance. Download reviewed and interpreted today. Compliance is 100%, when used >4 hours is 100%. Average use per night is 7 hours and 19 minutes. AHI is 1. -Continue PAP therapy at current settings. Assessment & Plan (04/17/2023 1:30 PM EST): She is using a DreamStation 2 device and does not like how small the water chamber is. She is eligible and would like to get a new machine. -ResMed CPAP device, continue current settings. - Follow-up in 2 months for a 31-90-day compliance visit Assessment & Plan (10/15/2022 11:02 AM EDT): Patient is doing very well on PAP therapy with good control and compliance. Download reviewed and interpreted today. Compliance is 97%, AHI is 1.7. We will continue PAP therapy at current settings. Shortness of breath 06/13/2022 Assessment & Plan (04/17/2023 1:23 PM EST): Resolved. She was recently evaluated by an manager corporate responsibility and has multiple outdoor triggers. She feels like her shortness of breath was related to allergies. Assessment & Plan (10/15/2022 10:44 AM EDT): Shortness of breath has decreased since last office visit. Patient has been walking 3-4 times daily and is feeling much better. - Continue walking at least 3 times a day. Assessment & Plan (08/14/2022 12:48 PM EDT): Worsening shortness of breath. LHC from 06/26/22 revealed near normal coronary arteries, mild luminal irregularities in LAD only. LVEF 45. CT of chest 05/24/22 demonstrated no acute process. PFT from 08/07/22- FVC, FEV1, FEV1/FVC ratio and FEF 25-75% are within normal limits, but there is curvature to the flow volume loop suggesting minimal small airway disease. -Trial of cardiac rehab for continued shortness of breath. Assessment & Plan (07/11/2022 1:23 PM EDT): Worsening shortness of breath. LHC from 06/26/22 revealed near normal coronary arteries, mild luminal irregularities in LAD only. LVEF 45. CT of chest 05/24/22 demonstrated no acute process. -PFT and possible pulmonology referral after reviewing results of PFT. -Discussed starting Entresto at next office visit. Assessment & Plan (06/13/2022 4:26 PM EDT): Worsening shortness of breath and abnormal stress test. Nuclear stress test 06/05/2022 revealed anterolateral area of scarring with surrounding ischemia. Intermediate risk study. We will proceed with left heart cath at [facility]. Abnormal nuclear stress test 06/13/2022 CAD (coronary artery disease) 06/13/2022 Cardiomyopathy 06/13/2022 Hypertension 06/13/2022 Assessment & Plan (05/07/2024 3:25 PM EDT): Well-controlled. Continue current medications. Assessment & Plan (03/19/2024 5:41 PM EST): Well-controlled. Continue current medications. Assessment & Plan (01/20/2024 12:30 PM EST): Hypertension is well-controlled . Continue current treatment regimen. Dietary sodium restriction. Regular aerobic exercise. Blood pressure will be reassessed at the next regular appointment. Assessment & Plan (08/14/2022 12:50 PM EDT): Hypertension is well-controlled . Continue current treatment regimen. Dietary sodium restriction. Regular aerobic exercise. Blood pressure will be reassessed at the next regular appointment. Assessment & Plan (07/11/2022 1:21 PM EDT): Hypertension is stable. Continue current treatment regimen. Dietary sodium restriction. Regular aerobic exercise. Blood pressure will be reassessed in 4 weeks. Assessment & Plan (06/13/2022 4:29 PM EDT): Hypertension is stable. Continue current treatment regimen. Dietary sodium restriction. Regular aerobic exercise. Blood pressure will be reassessed at the next regular appointment. Non-ischemic cardiomyopathy 06/13/2022 Assessment & Plan (05/07/2024 3:25 PM EDT): Euvolemic. On medical therapy. Doing well. Update echo prior to ICD battery replacement. Orders: Adult Transthoracic Echo Complete W/ Cont if Necessary Per Protocol; Future Assessment & Plan (01/20/2024 12:29 PM EST): LVEF 46 - 50% on Echo from 08/2023. Currently stable and euvolemic on exam today. We previously discussed starting Entresto, but patient does not want to start at this time due to concerns about her kidney function. - Continue current medical therapy Assessment & Plan (12/03/2023 8:17 AM EDT): LVEF 46 - 50% on Echo from 08/2023. Currently stable and euvolemic on exam today. We previously discussed starting Entresto, but patient does not want to start at this time due to concerns about her kidney function. - Continue current medical therapy Assessment & Plan (06/17/2023 11:49 AM EDT): EF 46-50% on Echo from 06/13/22. Currently stable. -We discussed starting Entresto but patient does not want to start at this time due to concerns about her kidney function. -Continue current medical therapy -Update echo at follow up visit. Assessment & Plan (04/17/2023 1:22 PM EST): EF 46-50% on Echo from 06/13/22. Currently stable. -We discussed starting Entresto but patient does not want to start at this time due to concerns about her kidney function. -Continue current medical therapy Assessment & Plan (10/15/2022 10:43 AM EDT): EF 46-50% on Echo from 06/13/22. Currently stable. -We discussed starting Entresto but patient does not want to start at this time due to concerns about her kidney function. -Continue current medical therapy Assessment & Plan (08/14/2022 12:50 PM EDT): EF 46-50% on Echo from 06/13/22. Currently stable. -We discussed starting Entresto but patient does not want to start at this time due to concerns about her kidney function. -Continue current medical therapy Assessment & Plan (07/11/2022 1:20 PM EDT): EF 46-50% on Echo from 06/13/22. -We discussed starting Entresto at next office visit in 1 month. Assessment & Plan (06/13/2022 4:28 PM EDT): Currently stable, EF 46 to 50%. Presence of biventricular cardiac pacemaker 05/20 Assessment & Plan (10/15/2022 10:58 AM EDT): Device interrogation today shows good battery life and lead function, no events noted. RV pulse width changed to 0.5ms. LV pulse width changed to 1.2ms. - Recheck device in 6 months. Assessment & Plan (08/14/2022 12:45 PM EDT): Good battery life and lead function on device interrogation from 05/29/22 office visit. Assessment & Plan (07/11/2022 1:21 PM EDT): Pacemaker interrogated at last office visit on 05/29/22-good battery life and lead function. Assessment & Plan (06/13/2022 4:27 PM EDT): Pacemaker interrogated at last office visit on 05/29/2022-good battery life and lead function. Resolved Problems Problem Noted Date Diagnosed Date Resolved Date Presence of biventricular im plantable cardioverter-defibrillator (ICD) 04/17/2023 025 Assessment & Plan (05/07/2024 3:25 PM EDT): Approaching JABIER. Will update echo with EF. Orders: Adult Transthoracic Echo Complete W/ Cont if Necessary Per Protocol; Future Assessment & Plan (03/19/2024 5:41 PM EST): Will follow closely as she is approaching battery elective replacement interval. Assessment & Plan (01/20/2024 12:34 PM EST): Device interrogation today shows < 3 months battery life remaining. She will need a lead revision with generator change in the next couple of months. Device interrogation reviewed by Dr. Ferreira. Assessment & Plan (12/03/2023 8:17 AM EDT): Device interrogation showed a problem with her leads and 4.4 months of battery life remaining. Settings were changed back to bipolar, unipolar was causing pocket stim. Output 6 at 1.5 RV. She will need a lead revision with generator change in the next couple of months. Device interrogation reviewed by Dr. Ferreira Assessment & Plan (04/17/2023 1:30 PM EST): Device interrogation today shows good battery life and lead function, no events noted. - Recheck device in 6 months Encounters Date Type Department Care Team Description 11/12/2024 Refill [facility] [address] [place] [phone] Ethel Mosley, RESOURCE AGENT Med Refill 11/04/2024 Refill [facility] [place] [phone] Ethel Mosley, RESOURCE AGENT Med Refill 10/15/2024 Results Follow-Up [facility] [address] [place] [address] [place] [phone] Melani Ferreira MD 10/12/2024 2:45 PM EDT Office Visit [facility] [place] [phone] Melani Ferreira MD BISHOP (obstructive sleep apnea) (Primary Dx); Presence of cardiac pacemaker; Hypertension, unspecified type; Non-ischemic cardiomyopathy; Impaired fasting glucose 10/12/2024 2:30 PM EDT Clinical Support No Requirements [facility] [place] [phone] Presence of biventricular cardiac pacemaker [Z95.0] (Primary Dx) 10/12/2024 Travel from Last 3 Months Immunizations Immunization Administration Dates Next Due Arexvy (RSV, Adults 60+ yrs) 01/04/2023 COVID-19 (MODERNA) 12YRS+ (SPIKEVAX) 11/23/2022 COVID-19 (MODERNA) BIVALENT 12+YRS 02/22/2022 FLUAD TRI 65YR+ 10/30/2019,11/21/2018 Fluad Quad 65+ 10/26/2022 Fluzone High-Dose 65+YRS 11/07/2023 Fluzone High-Dose 65+yrs 12/04/2021,11/30/2020 Pneumococcal Conjugate 20-Valent (PCV20) 023 Shingrix 11/07/2023 Family History Medical History Relation Name Comments Other Father Intracerebral h emorrhage Stroke Father Bone cancer Mother 30'S Colon cancer Other Arrhythmia Sister 1 Francine Hagen Clotting disorder Sister 1 Francine Hagen Heart disease Sister 1 Francine Hagen Heart failure Sister 1 Francine Hagen Hyperlipidemia Sister 1 Francine Hagen Hypertension Sister 1 Francine Hagen Sleep apnea Sister 1 Francine Hagen Breast cancer Sister 2 Tammy Marslender Hyperlipidemia Sister 2 Tammy Marslender Hypertension Sister 2 Tammy Marslender Hyperlipidemia Sister 3 Katharine Guy Hypertension Sister 3 Katharine Guy Hypertension Sister 4 Gissel Kalassay Relation Name Status Comments Father Mother Other (Age 85) Sister 1 Francine Hagen Alive Sister 2 Tammy Marslender Alive Sister 3 Katharine Guy Alive Sister 4 Gissel Kalassay Alive Social History Tobacco Use Types Packs/Day Years Used Date Smoking Tobacco: Never Passive Smoke Exposure: Never Smokeless Tobacco: Never Tobacco Cessation:Counseling Given: Yes Alcohol Use Standard Drinks/Week Comments Never 0 [...] Orientation Straight 05/02/2024 5: 40 PM EDT Last Filed Vital Signs Vital Sign Reading Time Taken Comments Blood Pressure 110/60 10/12/2024 2:51 PM EDT Pulse 80 10/12/2024 2:51 PM EDT Temperature 36.1 C (97 F) 07/29/2024 10:27 AM EDT Respiratory Rate 9 07/29/2024 2:35 PM EDT Oxygen Saturation 95% 10/12/2024 2:51 PM EDT Inhaled Oxygen Concentration - - Weight 65.8 kg (145 lb) 10/12/2024 2:51 PM EDT Height 160 cm (5' 3 ) 10/12/2024 2:51 PM EDT Body Mass Index 25.69 10/12/2024 2:51 PM EDT Plan of Treatment Upcoming Encounters Date Type Department Care Team (Late st Contact Info) Description 04/12/2025 12:45 PM EST Office Visit [facility] [address] [place], [place] [phone] Melani Ferreira MD [address] [place] [address] Health Maintenance Due Date Last Done Comments INFLUENZA VACCINE 09/18/2024 12/10/2023, , 10/26/2022, Additional history exists COVID-19 Vaccine (2024- 6 season) 2024 06/01/2024, 11/07/2023, 11/23/2022, Additional history exists ANNUAL WELLNESS VISIT 12/09/2024 12/10/2023 , 08/17/2021, 12/15/2018, Additional history exists DXA SCAN 12/24/2025 12/25/2023, 05/19, 12/22/2018, Additional history exists TDAP/TD VACCINES (2 - Td or Tdap) 03/24/2034 025 Pneumococcal Vaccine 50+ Completed 01/04/2023 RSV Vaccine - Adults Completed 01/04/2023 ZOSTER VACCINE Completed 03/24/2024, 11/07/2023 Medical Devices Implanted Type Area Catheter Finisher And Inspector Device Identifier Shelf Expiration Date Model / Serial / Lot Ld Pace Ultipace Is/1/Bipol/Co nn Ext/Ret/Joliet /Fix 6f 58cm - [id number] - [id number] Implanted:Qty : 1 on 07/29/2024 by Mike Miranda MD at [facility] Lead N/A: Heart ALLEN VASCULAR 06/18/2027 [id number] / [id number] / Description:RV Pacemaker-2/2 Implanted: (Quantity not on file) Pacemaker [employer] 3222 ALLURE(TM ) RF / [id number] / Description:Device Type: READING INTERVENTION TEACHER -[id number] Model: [id number] Allure(TM) RF Serial: Date of Implant: 04-09-[address] Rf [id number] - [id number] - [id number] Implanted:Qty : 1 on 07/29/2024 by Mike Miranda MD at [facility] Pacemaker Left: Chest Wall [employer] 11/17/2025 [id number] / [id number] / Procedures Procedure Name Priority Date/Time Associated Diagnosis Comments REMOTE DEVICE CHECK 12/14/2024 1 0:11 AM EDT REMOTE DEVICE CHECK 11/05/2024 5 :21 AM EDT LIPID PANEL Routine 10/15/2024 Presence of cardiac pacemaker BISHOP (obstructive sleep apnea) Hypertension, unspecified type Non-ischemic cardiomyopathy COMPREHENSIVE METABOLIC PANEL Routine 10/15/2024 Presence of cardiac pacemaker BISHOP (obstructive sleep apnea) Hypertension, unspecified type Non-ischemic cardiomyopathy HEMOGLOBIN A1C Routine 10/15/2024 Presence of cardiac pacemaker BISHOP (obstructive sleep apnea) Hypertension, unspecified type Non-ischemic cardiomyopathy Impaired fasting glucose from Last 3 Months Results * Remote Device Check (11/05/2024 5:21 AM EDT) Date Time Interrogation Session [id number] [facility] Type Interrogation Session Remote Scheduled [facility] Implantable Pulse Generator Catheter Finisher And Inspector [employer] [facility] Implantable Pulse Generator Type IPG [facility] Implantable Pulse Generator Model 2272 Assurity MRI(TM) [facility] Implantable Pulse Generator Serial Number [id number] [facility] Implantable Pulse Generator Implant Date [id number] [facility] Battery Remaining Percentage 95.50 % [facility] Battery Remaining Longevity 101.0 mo [facility] Battery Voltage 3.010 [facility] Battery MACHINE I TRIMMER Trigger 2.600 [facility] Battery Status Middle of Service [facility] Marcello Statistic RA Percent Paced 12.00 [facility] Marcello Statistic RV Percent Paced 93.00 [facility] Atrial Tachy Statistic AT/AF [place] Percent 0.00 [facility] Lead Channel RA Sensing Intrinsic Amplitude 1.700 [facility] Lead Channel Setting RA Sensing Sensitivity 0.50 [facility] Lead Channel RA Impedance Value 390 [facility] Lead Channel RA Pacing Threshold Amplitude 1.000 [facility] Lead Channel RA Pacing Threshold Pulse Width 0.4 [facility] Lead Channel RA Measurements Date and Time [id number] [facility] Lead Channel Setting RA Pacing Amplitude 2.500 [facility] Lead Channel Setting RA Pacing Pulse Width 0.4 [facility] Lead Channel RV Sensing Intrinsic Amplitude 2.100 [facility] Lead Channel Setting RV Sensing Sensitivity 1.00 [facility] Lead Channel RV Impedance Value [address] [facility] Lead Channel Setting RV Pacing Amplitude 2.500 [facility] Lead Channel Setting RV Pacing Pulse Width 0.4 [facility] Marcello Setting Mode (NBG Code) DDDR [facility] [place] Setting Lower Rate Limit 60 [facility] [place] Setting AT Mode Switch Rate 160 [facility] [place]o Setting Maximum Tracking Rate 130 [facility] [place] Setting Maximum Sensor Rate 130 [facility] [place] Setting PAV Delay 200 [facility] [place]o Setting PALLAVI Delay 150 [facility] Lead Channel Setting RA Sensing Polarity Bipolar [facility] Lead Channel Setting RV Sensing Polarity Bipolar [facility] Lead Channel Setting RA Pacing Polarity Bipolar [facility] Lead Channel Setting RV Pacing Polarity Bipolar [facility] Lead Channel RA Pacing Threshold Polarity Bipolar [facility] Lead Channel RV Pacing Threshold Polarity Bipolar [facility] 11/05/2024 5:21 AM EDT us Melani Ferreiar MD CV IMPLANTABLE CARDIAC DEVIC E Final Result Performing Organization Address [facility] Co de Phone Number [facility] * Hemoglobin A1c (10/15/2024) Blood us Melani Ferreira MD LAB BLOOD ORDERABLES Final R esult Performing Organization Address [facility] Co de Phone Number [facility]
[address] [place] [address], [place] [phone] * Lipid Panel (10/15/2024) Blood us Melani Ferreira MD LAB BLOOD ORDERABLES Final R esult Performing Organization Address [facility] Co de Phone Number [facility]
[address] [place] [address], [place] [phone] * Comprehensive Metabolic Panel (10/15/2024) Blood us Melani Ferreira MD LAB BLOOD ORDERABLES Final R esult Performing Organization Address [facility] de Phone Number [facility]
[address] [place] [address], [place] [phone] from Last 3 Months Insurance MEDICARE A & B [facility] SUP Care Teams Breaker Tender Relationship Specialty Start Date End Date Opal Tanner DO [address] [place] [id number] PCP - General Family Medicine 05/29/22
--- OUTSIDE RECORDS SUMMARY | 2024-12-25 12:55 | XMS_ITS | Encounter Summary ---
Author Organization [employer] ([place], [place], [place], [place], [place]) Address [address] [place] [address] Care Team Providers Care Disability Specialist Name Role Phone Unavailable Primary Care Provider Unavailabl e Encounter Details Date Type Department Care Team (Late st Contact Info) Description 04/09/2019 Transcribed Document [facility] Family Medicine Counts include 234 beds at the [facility] [place] [address] ProviderKarol MD Counts include [address] beds [place] [facility] [place] [address] Social History Tobacco Use Types Packs/Day Years Used Date Smoking Tobacco: Never Assessed Comments Unknown Sex and Gender Information Value Date Recorded Sex Assigned at Not on file Legal Sex Female 3:25 PM CDT Gender Identity Not on file Sexual Orientation Not on file documented as of this encounter Miscellaneous Notes * Cerner Conversion Note - Historical ProviderMD - 04/09/2019 3:01 PM BANKING ASSISTANT Nursing Discharge Summary Entered On: 04/09/2019 15:01 EST Performed On: 04/09/2019 15:01 EST by JAIDEN DOYLE RN Discharge Documentation Discharge Date/Time : 04/09/2019 16:15 EST JAIDEN DOYLE RN - 04/09/2019 16:10 EST Patient Disposition, General : Discharge Discharge To : Home with ambulatory/outpatient follow-up Mode Of Departure, General Discharge : Private vehicle, Wheelchair Accompanied By, Discharge : Spouse IV Discontinued : Yes Medications Given to Patient : No Personal Belongings With Patient : Yes Prescriptions Given to Patient : No Discharge Instructions Reviewed With, Opportunity For Questions Given : Patient, Spouse Patient Education Completed : Yes Teaching Method : Explanation, Printed materials Teaching Evaluation : Returns demonstration, Verbalizes understanding JAIDEN DOYLE RN - 04/09/2019 15:01 EST Electronically signed by Chris [facility] Conversion Supercalender Operator Helper Cerner at 06/08/2022 12:36 PM CDT documented in this encounter Plan of Treatment Not on file documented as of this encounter Visit Diagnoses Not on filedocumented in this encounter
--- OUTSIDE RECORDS SUMMARY | 2024-12-25 12:56 | XMS_ITS | Encounter Summary ---
Author Organization [employer] ([place], [place], [place], [place], [place]) Address [address] [place] [address] Care Team Providers Care Cotton Chopper Name Role Phone Unavailable Primary Care Provider Unavailabl e Encounter Details Date Type Department Care Team (Late st Contact Info) Description 04/09/2019 Transcribed Document [facility] Radiology [address] [place] [address] Melani Ferreira MD [address] [place] [address] Drive [facility] [place] [address] Social History Tobacco Use Types Packs/Day Years Used Date Smoking Tobacco: Never Assessed Comments Unknown Sex and Gender Information Value Date Recorded Sex Assigned at Not on file Legal Sex Female 3:25 PM CDT Gender Identity Not on file Sexual Orientation Not on file documented as of this encounter Miscellaneous Notes * Cerner Conversion Note - Melani Ferreira MD - 04/09/2019 3:31 PM EST DATE OF PROCEDURE: 04/09/2019 CARDIOLOGY PROCEDURE REPORT SURGEON: Melani Ferreira MD PROCEDURE PERFORMED: Generator change of a biventricular pacemaker. INDICATIONS: Nonischemic cardiomyopathy and an existing biventricular pacemaker at elective replacement interval. DESCRIPTION OF PROCEDURE: The patient was brought to the EP lab in a fasting state. She had previously been consented for the procedure. She was sterilely prepped and draped in the usual fashion. She was sedated with fentanyl and Versed while vital signs were monitored accordingly. The skin overlying the existing pulse generator was anesthetized with 2% lidocaine. A 16-blade scalpel was used for incision, and using blunt dissection and electrocautery with PlasmaBlade, the device generator was excised from the pocket. The leads were sequentially moved to the new pulse generator while confirming lead positioning and serial numbers. Appropriate pacing threshold sensing and impedances were confirmed through the new pulse generator. The pocket was irrigated with the antibiotic solution. Hemostasis was readdressed with electrocautery. The incision was then closed with two layers of running 2-0 Vicryl and a 4-0 Monocryl subcuticular stitch. There were no apparent complications and the patient tolerated the procedure well. DEVICE INFORMATION: The new pulse generator is a [employer]key[employer], model #[id number], serial #[id number]. The explanted generator was the [employer]key[employer], model #3210, serial #[id number]. The chronic right atrial lead is a [employer]keyan, model #2088TC, serial #[id number]. The chronic right ventricular lead is a [employer]keyan, model #1948, serial #[id number]. The chronic left ventricular lead is a [employer]keyan, model #[id number]. DEVICE MEASUREMENTS: The right atrial lead P-wave 2.4 mV, impedance was 380 ohms, threshold was 0.75 V at 0.5 msec. The right ventricular lead sensing 6.8 mV, impedance 340 ohms, threshold 1.0 V at 0.5 msec and the left ventricular impedence 1375 ohms, 1.0 V and pulse width 1.2 msec. PARAMETERS: The pacing mode was set DDDR, base rate 60, max track 120. All other parameters were similar to prior to implant. PLAN: The patient will be observed in holding for any signs of bleeding and then will be discharged home with close followup. /[id number] MD ANTON Pro/AQ / CKAcosta / MODL /[id number] documented in this encounter Plan of Treatment Not on file documented as of this encounter Visit Diagnoses Not on filedocumented in this encounter
--- OUTSIDE RECORDS SUMMARY | 2024-12-25 12:56 | XMS_ITS | Clinical Summary ---
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
--- OUTSIDE RECORDS SUMMARY | 2024-12-25 12:56 | XMS_ITS | Continuity of Care Document ---
Author Organization [facility] & [facility] Address [address] [place] [address] [place] [address] Care Team Providers Care Mine Foreman Name Role Phone PRESTON ZURITA Primary Care Provider TIKA GUZMNÁ Hematology/Oncology Assessment No assessment recorded. Plan of Treatment Reminders Order Date Submit Date Provider Last Modified By Organization Details Last Modified Time Details Appointments OV EST 30 026 10:30AM Izabella Diez PA-C Not available Not available Not available Lab None record ed. Referral None record ed. Procedures None record ed. Surgeries None record ed. Imaging None record ed. Medication Orders None record ed. Patient TargetsNo targets recorded. Patient InstructionsNo instructions recorded. Reason for Referral None Reported. Results Created Date Observation Date Name Description Value Unit Range Abnormal Flag Note LastModifiedBy Organization Detail LastModifiedTime Result Notes None recorded. Problems Name Problem SNOMED Code Status Onset Date Resolution Date Notes Provider Name and Address Organization Details Recorded Time Leukopenia 67347629 [facility] [place] [facility] 16:31:19 Cardiac pacemaker in situ 815319831 Active 2024 Blanca Zheng MD [address] [place], [address] , [facility] & [place] 5 10:27:20 Ventricular tachycardia 17114372 Active [address], [place], [address] , [place] - [facility] - [place] & [place] 10:27:38 Problem Notes None recorded. Procedures Surgical History Date Name Laterality Status Provider Name and Address Organization Details Recorded Time 09/17/19 25 Venipuncture completed Kyung Genoveva [place] [facility] [place] & [place] 09/16/2024 09:22:53 07/30/19 25 insertion of pacemaker pulse generator completed Rakel Ortizalbert [place] [facility] [place] 12/22/2024 10:48:27 04/23/19 25 Venipuncture completed Kyung Genoveva [place] - [facility] - [place] & [place] 04/22/2024 10:34:01 12/18/19 24 Venipuncture completed Isabell Maderaer [place] - [facility] - [place] & [place] 12/18/2023 11:14:08 08/16/19 24 Venipuncture completed Kyung Genoveva [place] [facility] [place] & [place] 08/16/2023 11:06:18 02/15/20 23 Venipuncture completed Kyung Genoveva [place] [facility] [place] & [place] 02/14/2023 10:19:39 10/30/19 23 Venipuncture completed Isabell Kendall [place] [facility] [place] & [place] 10/29/2022 10:06:09 07/28/19 23 Venipuncture completed Jessica Etienne [place] - [facility] [place] & [place] 07/27/2022 10:04:42 06/09/19 23 Venipuncture completed Saulo Felizzell [place] [facility] [place] & [place] 06/08/2022 09:28:25 04/27/19 23 Venipuncture completed Gracen Yazell [place] - [facility] - [place] & [place] 04/26/2022 10:30:39 01/10/20 22 Venipuncture completed Jessica Etienne [place] [facility] [place] & [place] 01/09/2022 11:24:01 10/03/19 22 completed Isabell Enoch [place] - [facility] [place] & [place] 10/29/2022 09:42:57 06/06/19 16 colonoscopy completed Isabell Maderaer [place] - [facility] [place] & [place] 12/18/2023 11:11:34 08/09/19 12 implantation of cardiac pacemaker completed Isabell TORRES [facility] & [place] 12/18/2023 11:11:08 maintenance procedure for cardiac pacemaker system completed Isabell TORRES [facility] & [place] 10/29/2022 09:44:27 excision of nipple completed Isabellaamir TORRES [facility] & [place] 10/29/2022 09:44:38 Imaging Results None recorded. Procedure Notes None recorded. Medical Equipment None Reported. Allergies No known drug allergies Medications Name Sig Start Date Stop Date Status Note LastModified by Organization Details LastModified Time amoxicill in 500 mg capsule TAKE 1 CAPSULE BY MOUTH EVERY 8 HOURS 10/29 completed Not Available Not Available Not Available carvedilo l 25 mg tablet 1.5 tablets daily active Not Available Not Available No t Available ketoconaz ole 2 % shampoo APPLY TO SCALP TWICE WEEKLY FOR 8 WEEKS THEN NEEDED AFTER 12/22 completed Not Available Not Available Not Available atorvasta tin 10 mg tablet active Not Available Not Available Not Available Iron (ferrous sulfate) 325 mg (65 mg iron) tablet Take 1 tablet every day by oral route. active Not Available Not Available No t Available FreeStyle Lancets 28 gauge USE DIRECTED TO TEST DAILY IN THE MORNING active Not Available Not Available No t Available lisinopri l 20 mg tablet TAKE 1 TABLET ONCE DAILY (MORE REFILLS AT FOLLOW UP) active Not Available Not Available No t Available omeprazol e 40 mg capsule,d elayed release Take 1 capsule every day by oral route for 90 days. active Not Available Not Available No t Available spironola ctone 25 mg tablet TAKE 1 TABLET BY MOUTH DAILY active Not Available Not Available No t Available mexiletin e 150 mg capsule Take 1 capsule twice a day by oral route for 90 days. active Not Available Not Available No t Available levothyro xine 50 mcg tablet active Not Available Not Available Not Available triamcino lone acetonide 0.1 % topical ointment APPLY 1 APPLICAT ION ON SKIN TWICE DAILY active Not Available Not Available No t Available monteluka st 10 mg tablet Take 1 tablet every day by oral route for 90 days. active Not Available Not Available No t Available furosemid e 20 mg tablet Take 1 tablet every day by oral route as needed. active Not Available Not Available No t Available fluocinon april 0.05 % topical solution APPLY TOPICALL Y TO THE AFFECTED AREA EVERY NIGHT AT BEDTIME 12/22 completed Not Available Not Available Not Available fluticaso ne propionat e 50 mcg/actua tion nasal spray,bobby pension active Not Available Not Available Not Available doxycycli ne hyclate 100 mg tablet TAKE 1 TABLET BY MOUTH TWICE DAILY 12/19 completed Not Available Not Available Not Available potassium chloride 10 meq 12/22 completed Not Available Not Available Not Available vitamin E take 400 units twice a day active Not Available Not Available No t Available Vitamin D 12/22 completed Not Available Not Available Not Available Synthroid 12/22 completed Not Available Not Available Not Available Iron (ferrous sulfate) 12/22 completed Not Available Not Available Not Available Vitamin D3 take one tablet by mouth every other day active Not Available Not Available No t Available FreeStyle Lite Meter kit USE DIRECTED TO TEST EVERY MORNING active Not Available Not Available No t Available FreeStyle Lite Strips USE DIRECTED TO TEST EVERY MORNING active Not Available Not Available No t Available Prolia 60 mg/mL subcutane ous syringe Inject 1 mL by subcutan eous route as needed. active last given 06/2023-- every 6mo. in jection sub Q Not Available Not Available Not Available magnesium 400 mg (as magnesium oxide) capsule Take 1 capsule twice a day by oral route. active Not Available [...] Available Vitals Date Recorded Body height Body mass index (BMI) Body weight Body temperature Oxygen saturation Oxygen saturation in Arterial blood by Pulse oximetry Heart rate Systolic And Diastolic Provider Name and Address Organization Details Last Updated DateTime 161.29 cm 25.3 kg/m2 18737.6 1 g 97.3 [degF] 97 % 97 % 91 /min 121/67 mm[Hg] Rakel TORRES [facility] & [place] 10:38:08 Social History Question Answer Notes LastModified by Organizat ion Details LastModified Time Tobacco Smoking Status Never Smoker Jessica Etienne [facility] & [place] 01/09/2022 10:56:43 Do You Have An Advance Directive? No [email or web address] Information not available 10/29/2022 Are You Blind Or Do You Have Difficulty Seeing? No [email or web address] Information not available 10/29/2022 What Is Your Level Of Caffeine Consumption? Occasional [email or web address] Information not available 12/18/2023 What Was The Date Of Your Most Recent Tobacco Screening? 12/22/2024 [email or web address] Information not available 12/22/2024 Are You Passively Exposed To Smoke? No [email or web address] Information not available 10/29/2022 How Much Tobacco Do You Smoke? No [email or web address] Information not available 10/29/2022 Has Tobacco Cessation Counseling Been Provided? No [email or web address] Information not available 10/29/2022 Sex: Unknown Functional Status Question Answer Note LastModified by Organizat ion Details LastModified Time Do you use any illicit or recreational drugs? No [email or web address] Information not available 01/09/2022 Do you or have you ever used any other forms of tobacco or nicotine? No Information not available 12/18/2023 What is your level of alcohol consumption? None Information not available 01/09/2022 Do you or have you ever used smokeless tobacco? Never used smokeless tobacco [email or web address] Information not available 10/29/2022 What is your exercise level? Moderate [email or web address] Information not available 10/29/2022 Mental Status Question Answer Note LastModified by Organization D etails LastModified Time Do you feel stressed (tense, restless, nervous, or anxious, or unable to sleep at night)? [id number] [email or web address] Information not available 10/29/2022 Family History Relationship Description Onset Age of this Age Resolved Age Notes LastModified by Organization Details LastModified Time Maternal Aunt Disorder of endocrine system pt. added direct ly (01/06) [email or web address]-13 Not available 01/06/2022 12:23:22 Maternal Aunt Heart disease Not available 2021 10:59:26 Father Cerebral hemorrhage [email or web address] Not available 04/22 10:19:37 Father Heart disease [...] available 06/07/2022 12:26:20 Medical History Condition Response Allergies (Food, seasonal, environmental ) N Anxiety/Depression N None N Gout N Thyroid Disease Y Atrial Fibrillation N Colon Cancer N Blood Diseases N Hyperthyroidism N Breast Cancer N Emphysema N Hypothyroidism Y COPD N Lung Disease N Anesthesia Complications N Lung Mass N Obstructive Sleep Apnea Y Autoimmune disease N Obesity Y Vision or Eye Problems Y Arthritis Y Blood Clot N Acid Reflux (GERD) Y Cancer N Bladder or Kidney Problems N High Cholesterol Y Liver Disease N Arrhythmia N Fibromyalgia N Kidney Disease Y Allergies/Hayfever Y Ear or Hearing Problems Y Kidney or Bladder Problems Y Thyroid Problems Y Brain Tumors N Osteoporosis/Osteopenia Y Anemia Y Multiple Sclerosis N Diabetes N Congestive Heart Failure (CHF) Y Hyperlipidemia Y Diverticulitis Y Reflux/GERD Y Sleep Disorder Y GERD/Reflux Y Aneurysm N Heart Disease Y Hypertension Y Osteoporosis Y Gynecological History Statement/Question Response Menses Monthly N 10/02/2021 Sexually Active? N Obstetrics History GPAL:G 0 P 0 0 0 0 Past Encounters Encounter ID Performer Location Encounter Start Date Encounter Closed Date Diagnosis/Indication Diagnosis SNOMED-CT Code Diagnosis ICD10 Code Diagnosis IMO Codes Diagnosis Note [id number] Izabella Diez PA-C [facility] [address] [place] [address] 12/22/2024 10:28:13 12/22/2024 11:03:37 Anemia in chronic kidney disease 960824772 D63.1 Labs on July 27, 2022 with [...] 10 will initiate erythropoi etin supplement ation. Patient presents to clinic on September 16, 2024. Patient denies any new acute complaints . Patient recently had pacemaker replaced and is feeling great. Will repeat labslabs on September 16, 2024 with stable hemoglobin 11.8 normal iron studies normal ferritin will continue with observatio n. Patient presents to clinic on December 22, 2024. Patient recently had labs via Nephrology that showed normal hemoglobin . Normal iron studies. Will continue with observatio n. Anemia 501683326 D64.9 Labs on August 06, 2019. White blood cell count 7.0 red blood count 3.68. Hemoglobin 10.9 and hematocrit 33.1. Platelet count 807196. No immature cells seen on differenti al. [...] 10.4 hematocrit 32.6. MCV 90.6. Platelet count 968342. Creatinine 1.0 and total protein normal at [...] today. Chronic ki dney disease stage 3 995659803 N18.30 Labs with evidence of stage 3 chronic kidney disease. Will follow up additional labs today. Health Concerns Section Related Observation LastModified by Organization Roxy jones LastModified Time None Recorded Concern Status LastModified by Organization Details LastModified Time None Recorded Payers Encounter Date Sequence Insurance Name Policy Number Policy Lopez Covered Member ID Lopez Member ID Guarantor Name 12/22/2024 1 [place]ARE[place] Stacy Cancino [id number] Stacy Brownlin 12/22/2024 2 FOR LIFE ( - MEDICARE SUPPLEMENT) Stacy Williamughlin [id number] Stacy Ugarte Julita Notes Date Note Type Note Provider Name and Address Organization Details Recorded Time 12/22/2024 text/html 79 yo F returns for evaluation of anemia and chronic kidney disease. Patient recently had labs by primary care physician on August 06, 2019. White blood cell count 7.0 red blood count 3.68. Hemoglobin 10.9 and hematocrit 33.1. Platelet count 535670. No immature cells seen on differential. Serum iron normal at 68. Iron binding capacity of 314.Labs on July 23, 2019 with GFR at 46 and creatinine at 1.2. Consistent with stage 3 chronic kidney disease. Hemoglobin 10.6 red blood cell count 3.64 platelet count 061169. Normal TSH.Labs on August 25, 2019 with white blood cell count 7.86 red blood count 3.6 hemoglobin 10.4 hematocrit 32.6. MCV 90.6. Platelet count 072177. Creatinine 1.0 and total protein normal at [...] 6.67. Hemoglobin 10.9 and hematocrit 34.3. Platelet 900925. Serum iron 78 and iron saturation 23%. [...] hematocrit 33.1. Iron studies normal. Platelet count 466794. Normal differential. Renal function with creatinine 1.1.Patient returns on December 20, 2020. will repeat labs today.Labs on December 20, 2020 with white blood cell count 6.34. Red blood count 4.19. Hemoglobin 12.3 and hematocrit 36.8. Iron studies normal. Platelet count 404823. Normal differential. Normal ferritin. Renal function with [...] hemoglobin less than 10 will initiate erythropoietin supplementation.Labs on April 22, 2024 with stable CBC CMP normal iron studies normal ferritin. Patient does not require any interventions at this time. Patient presents to clinic on September 16, 2024. Patient denies any new acute complaints. Patient recently had pacemaker replaced and is feeling great. Will repeat labslabs on September 16, 2024 with stable hemoglobin 11.8 normal iron studies normal ferritin will continue with observation. Patient presents to clinic on December 22, 2024. Patient recently had labs via Nephrology that showed normal hemoglobin. Normal iron studies. Will continue with observation. Izabella Diez PA-C [id number], [place], [address], [facility] - [facility] - [place] & [place] 12/22/2024 10:59:41 OBGyn Episode No OBEpisode recorded.
--- OUTSIDE RECORDS SUMMARY | 2024-12-25 12:56 | XMS_ITS | Encounter Summary ---
Author Organization [employer] ([place], [place], [place], [place], [place]) Address [address] [place] [address] Care Team Providers Care Mid Wife Name Role Phone Unavailable Primary Care Provider Unavailabl e Encounter Details Date Type Department Care Team (Late st Contact Info) Description 04/09/2019 Transcribed Document [facility] [place] [facility] [address] ProviderKarol MD [facility] [address] Social History Tobacco Use Types Packs/Day Years Used Date Smoking Tobacco: Never Assessed Comments Unknown Sex and Gender Information Value Date Recorded Sex Assigned at Not on file Legal Sex Female 3:25 PM CDT Gender Identity Not on file Sexual Orientation Not on file documented as of this encounter Miscellaneous Notes * Cerner Conversion Note - Karol ProviderMD - 04/09/2019 12:21 PM [employer] Pre Procedure Adult Entered On: 04/09/2019 12:25 EST Performed On: 04/09/2019 12:21 EST by JAIDEN DOYLE RN Height and Weight, Clinical Dosing Height Source : Stated Height Entry Format : Grainger Height, Feet : 5 ft(Converted to: 152 cm, 60 Inch) Height, Inches : 3 Inch(Converted to: 0 ft 3 Inch, 7.62 cm) Clinical Height : 160.02 cm Weight Source : Standing scale Weight Entry Format : Grainger Clinical Dosing Weight : 64.55 kg Weight, Pounds : 142 lb Body Surface Area (BSA) : 1.67 m2 Body Mass Index : 25.2 kg/m2 (HI) Spencer Body Weight : 52 kg JAIDEN DOYLE RN - 04/09/2019 12:21 EST Health Histories Smoking Status : Never (less than 100 in lifetime; none in last 30 days) Smokeless Tobacco Status : Never JAIDEN DOYLE RN - 04/09/2019 12:21 EST Social History (As Of: 04/09/2019 12:25:23 EST) Tobacco: Never (less than 100 in lifetime) Smoking Status. (Last Updated: 04/09/2019 12:21:36 EST by JAIDEN DOYLE RN) Alcohol: Alcohol Use History No. (Last Updated: 04/09/2019 12:21:39 EST by JAIDEN DOYLE RN) Substance Abuse: Drug Use Hx: No. (Last Updated: 04/09/2019 12:21:42 EST by JAIDEN DOYLE RN) Infectious Disease History Physical contact outside [place] in the last 30 days : No Infectious Disease History : Chicken pox/Shingles, Measles, Mumps Tuberculosis Symptoms : None JAIDEN DOYLE RN - 04/09/2019 12:21 EST Anesthesia/Transfusion History Family History of Anesthesia Reaction : No prior transfusion(s) Transfusion History : Prior anesthesia without reaction Family History of Anesthesia Reaction : None JAIDEN DOYLE RN - 04/09/2019 12:21 EST Functional Assessment Living Situation : Home Patient Lives With : Alone Current Home Treatments : CPAP JAIDEN DOYLE RN - 04/09/2019 12:21 EST [place] Suicide Severity Rating Scale (C-SSRS) CSSRS Past Month Wish to be : No CSSRS Past Month Suicidal Thoughts : No CSSRS Lifetime Suicide Behavior : No Suicide Severity Rating Score : 0 Suicide Severity Rating : No Additional Care Required at this time JAIDEN DOYLE RN - 04/09/2019 12:21 EST Psychosocial History Currently in Unsafe Situation : No JAIDEN DOYLE RN - 04/09/2019 12:21 EST Advance Directive Patient has Advance Directive *Q : No, patient refuses Advance Directive information JAIDEN DOYLE RN - 04/09/2019 12:21 EST Teaching/Learning Assessment Barriers To Learning : None evident Individuals Taught : Patient, Friend Readiness to Learn : Cooperative Baseline Knowledge of Topic : Limited Readiness to Learn : Explanation Learning Style Preferences Patient : Verbal explanation Learning Style Preferences Family : Verbal explanation JAIDEN DOYLE RN - 04/09/2019 12:21 EST Education Topics, Periop Preadmission Perioperative Education Grid Arrival Time/Place : Verbalizes understanding CAUTI : Verbalizes understanding Central Lines : Verbalizes understanding CHG Preoperative Bathing/Cloths : Verbalizes understanding Falls : Verbalizes understanding Incentive Spirometry : Verbalizes understanding Infection Control : Verbalizes understanding IV's : Verbalizes understanding NPO Status/Directions : Verbalizes understanding Pain Management : Verbalizes understanding Postoperative Care Preparations : Verbalizes understanding Preprocedure Preparations : Verbalizes understanding Preprocedure Tests/Labs : Verbalizes understanding Remove Body Piercings : Verbalizes understanding Responsible Adult : Verbalizes understanding SNE's : Verbalizes understanding Take/Hold Medications Pre-Procedure : Verbalizes understanding Other : Verbalizes understanding JAIDEN DOYLE RN - 04/09/2019 12:21 EST General Info Mode of Arrival on Unit : Ambulatory Patient Arrival Date/Time : 04/09/2019 11:38 EST Legal Guardian : Friend Want Family/Rep/Phys Notified of Admit : No Emergency Contact #1 : Zenia Zheng Emergency Contact #1 Emergency Contact #1 Relationship : friend Emergency Contact #2 : na Emergency Contact #2 Phone Number : na Emergency Contact #2 Relationship : na Information Obtained From : Patient Primary Language : Kinyarwanda Preferred Communication Mode : Verbal Communication Barrier : None JAIDEN DOYLE RN - 04/09/2019 12:21 EST Vital Measurements Temperature Source : Temporal artery scanning Temperature, Fahrenheit : 60 Deg F (LOW) Clinical Temperature, C : 15.6 Deg C Systolic Blood Pressure : 141 mmHg (HI) Diastolic Blood Pressure : 62 mmHg Oxygen Saturation : 100 % Oxygen Therapy Mode : Room air JAIDEN DOYLE RN - 04/09/2019 12:21 EST Sleep Apnea Risk Assmt BiPAP/CPAP Ordered for Home Use : Yes Hx of Obstructive Sleep Apnea Diagnosis : Yes BiPAP/CPAP Used at Home : Yes Age over 50 Years Old : Yes Gender Male : No JAIDEN DOYLE RN - 04/09/2019 12:21 EST Davey Scale Davey Sensory Perception : No impairment Davey Moisture : Rarely moist Davey Activity : Walks frequently Davey Mobility : No limitation Davey Nutrition : Excellent Davey Friction and Shear : No apparent problem Davey Score : 23 JAIDEN DOYLE RN - 04/09/2019 12:21 EST Oxygen Therapy Oxygen Therapy Mode : Room air JAIDEN DOYLE RN - 04/09/2019 12:21 EST Pain Assessment Pain Assessment : Initial assessment Pain Scale Used : 0-10 Scale JAIDEN DOYLE RN - 04/09/2019 12:21 EST Fall Risk Scales ABCs Fall Injury Risk Identification : None BERNSTEIN Hx Falls Immediate/Within 3 Months : No Bernstein Secondary Diagnosis : No BERNSTEIN Use of Ambulatory Aid : None BERNSTEIN IV Therapy or IV Access : Yes Bernstein Gait/Transferring : Normal, bedrest, immobile Bernstein Mental Status : Oriented to own ability Bernstein Fall Risk Score : 20 BERNSTEIN Fall Scale Risk Level : 0-24 Low Risk [place] Fall Interventions : Adequate lighting, Call device within reach, Frequent orientation to call device, Frequent orientation to surroundings, Non-slip footwear, Personal items within reach, Room free of clutter/spills, Wheels locked JAIDEN DOYLE RN - 04/09/2019 12:21 EST Valuables and Belongings Valuables and Belongings : Clothing, Personal devices, Personal items Clothing : Common streetwear Clothing Disposition : Bedside, With family Personal Device Disposition : With patient, Declines to send to security/safe Personal Devices : Dentures, upper, Glasses, Hearing aid, left, Hearing aid, right Personal Items : Cell phone, Wallet Personal Items Disposition : With family, Declines to send to security/safe JAIDEN DOYLE RN - 04/09/2019 12:21 EST Pain Scale Intensity : 0 JAIDEN DOYLE RN - 04/09/2019 12:21 EST Image 4 - Images currently included in the form version of this document have not been included in the text rendition version of the form. documented in this encounter Plan of Treatment Not on file documented as of this encounter Visit Diagnoses Not on filedocumented in this encounter
--- OUTSIDE RECORDS SUMMARY | 2024-12-25 12:56 | XMS_ITS | Data Portability ---
Author Organization [place] - [facility] & [facility] ADMIN Address [address] [place] [id number] Care Team Providers Care Workday Senior Associate Name Role Phone YUDITHPRESTON Primary Care Provider MAURICIO GUZMÁN Hematology/Oncology Assessment No assessment recorded. Plan of Treatment Reminders Order Date Submit Date Provider Last Modified By Organization Details Last Modified Time Details Appointments OV EST 30 2025 10:30A Sosa Diez PA-C Not available Not available Not available Lab immunofix ation + protein electroph oresis + free light chains, serum 2024 025 [facility] (Add On Labs Only), [address] [place] [address] [place], [address], 09/23/2024 07:59:40 CBC w/ auto diff 2024 025 [facility], [address] , [place], [address], 09/23/2024 07:59:40 CMP, serum or plasma 2024 025 [facility], [address] , [place], [address], 09/23/2024 07:59:40 iron + TIBC + ferritin, serum 2024 025 [email or web address] Not available 09/16/2024 12:57:10 iron saturatio n, serum 2024 025 [facility] (Add On Labs Only), [address] [place] [address] [place], [address], 09/23/2024 07:59:40 CBC w/ auto diff 2024 025 [facility], [address] [place], [address], 04/29/2024 08:07:44 CMP, serum or plasma 2024 025 [facility], [address] [place], [address], 04/29/2024 08:07:44 iron + TIBC + ferritin, serum 2024 025 [email or web address] Not available 04/29/2024 08:07:44 iron saturatio n, serum 2024 025 [facility] ([facility] On [facility] Only), [address] [place] [address] [place], [address], 04/29/2024 08:07:44 CBC w/ auto diff 2023 024 [facility], [address] [place], [address], 12/25/2023 07:55:25 CMP, serum or plasma 2023 024 [facility], [address] [place], [address], 12/25/2023 07:55:26 iron + TIBC + ferritin, serum 2023 024 [email or web address] Not available 12/25/2023 07:55:26 iron saturatio n, serum 2023 024 [facility] ([facility] On [facility] Only), [address] [place] [address] [place], [address], 12/25/2023 07:55:26 Referral None recorded. Procedures None recorded. Surgeries None recorded. Imaging None recorded. Medication Orders None recorded. Patient TargetsNo targets recorded. Patient Instructions Encounter Date Encounter Id Patient Instructions Last Modified By Organization Details Last Modified Time 07/22/2024 [id number] discuss possible options with patient and she would like to be retested and then we can regroup and discuss how to proceed. Would need a discussion with her nuclear operations specialist, Dr. Page Ferreira about possible alternatives to a beta clair if immunotherapy is indicated/desired. [email or web address] Not available 07/29/2024 10:32:07 Reason for Referral None Reported. Results Created Date Observation Date Name Description Value Unit Range Abnormal Flag Note LastModifiedBy Organization Detail LastModifiedTime 12/18/1912/18/2023 CBC W/ AUTO DIFF WBC 6.63 K/uL 4.5-11 .5 Not Available [facility] ([facility]) [address] [place] [address] [place], [address], 12/18/2023 16:14:54 12/18/19 24 12/18/2023 CBC W/ AUTO DIFF RBC 3.92 M/uL 4.0-5. 4 low Not Available [facility] ([facility]) [address] [place] [address] [place], [address], 12/18/2023 16:14:54 12/18/19 24 12/18/2023 CBC W/ AUTO DIFF HGB 11.6 g/dL 12.0-1 5.0 low Not Available [facility] ([facility]) [address] [place] [address] [place], [address], 12/18/2023 16:14:54 12/18/19 24 12/18/2023 CBC W/ AUTO DIFF HCT 34.9 % 35-49 low Not Available [facility] ([facility]) [address] [place] [address] [place], [address], 12/18/2023 16:14:54 12/18/19 24 12/18/2023 CBC W/ AUTO DIFF MCV 89.0 fL 80.0-1 00.0 Not Available [facility] ([facility]) [address] [place] [address] [place], [address], 12/18/2023 16:14:54 12/18/19 24 12/18/2023 CBC W/ AUTO DIFF MCH 29.6 pg 26.0-3 2.0 Not Available [facility] ([facility]) [address] [place] [address] [place], [address], 12/18/2023 16:14:54 12/18/19 24 12/18/2023 CBC W/ AUTO DIFF MCHC 33.2 g/dL 32.0-3 6.0 Not Available [facility] ([facility]) [address] [place] [address] [place], [address], 12/18/2023 16:14:54 12/18/19 24 12/18/2023 CBC W/ AUTO DIFF RDW 13.6 % 11.5-1 4.5 Not Available [facility] ([facility]) [address] [place] [address] [place], [address], 12/18/2023 16:14:54 12/18/19 24 12/18/2023 CBC W/ AUTO DIFF platelet count 214 K/uL 142-42 4 Not Available [facility] ([facility]) [address] [place] [address] [place], [address], 12/18/2023 16:14:54 12/18/19 24 12/18/2023 CBC W/ AUTO DIFF MPV 11.3 fL 6.8-10 .2 high Not Available [facility] ([facility]) [address] [place] [address] [place], [address], 12/18/2023 16:14:54 12/18/19 24 12/18/2023 CBC W/ AUTO DIFF neutrophil % 46.9 % 50-70 low Not Available [facility] ([facility]) [address] [place] [address] [place], [address], 12/18/2023 16:14:54 12/18/19 24 12/18/2023 CBC W/ AUTO DIFF lymphocyte % 31.4 % 18.0-4 2.0 Not Available [facility] ([facility]) [address] [place] [address] [place], [address], 12/18/2023 16:14:54 12/18/19 24 12/18/2023 CBC W/ AUTO DIFF monocyte % 15.5 % 2.0-11 .0 high Not Available [facility] ([facility]) [address] [place] [address] [place], [address], 12/18/2023 16:14:54 12/18/19 24 12/18/2023 CBC W/ AUTO DIFF eosinophil % 5.1 % 1.0-3. 0 high Not Available [facility] ([facility]) [address] [place] [address] [place], [address], 12/18/2023 16:14:54 12/18/19 24 12/18/2023 CBC W/ AUTO DIFF basophil % 0.8 % 0.0-2. 0 Not Available [facility] ([facility]) [address] [place] [address] [place], [address], 12/18/2023 16:14:54 12/18/19 24 12/18/2023 CBC W/ AUTO DIFF immature granulocytes % 0.3 % 0.0-0. 8 Not Available [facility] ([facility]) [address] [place] [address] [place], [address], 12/18/2023 16:14:54 12/18/19 24 12/18/2023 CBC W/ AUTO DIFF nucleated red blood cells % 0.0 % Not Available [facility] ([facility]) [address] [place] [address] [place], [address], 12/18/2023 16:14:54 12/18/19 24 12/18/2023 CBC W/ AUTO DIFF neutrophil # 3.11 K/uL Not Available [facility] ([facility]) [address] [place] [address] [place], [address], 12/18/2023 16:14:54 12/18/19 24 12/18/2023 CBC W/ AUTO DIFF lymphocyte # 2.08 K/uL Not Available [facility] ([facility]) [address] [place] [address] [place], [address], 12/18/2023 16:14:54 12/18/19 24 12/18/2023 CBC W/ AUTO DIFF monocyte # 1.03 K/uL Not Available [facility] ([facility]) [address] [place] [address] [place], [address], 12/18/2023 16:14:54 12/18/19 24 12/18/2023 CBC W/ AUTO DIFF eosinophil # 0.34 K/uL Not Available [facility] ([facility]) [address] [place] [address] [place], [address], 12/18/2023 16:14:54 12/18/19 24 12/18/2023 CBC W/ AUTO DIFF basophil # 0.05 K/uL Not Available [facility] ([facility]) [address] [place] [address] [place], [address], 12/18/2023 16:14:54 12/18/19 24 12/18/2023 CBC W/ AUTO DIFF immature gramulocytes # 0.02 K/uL Not Available [facility] ([facility]) [address] [place] [address] [place], [address], 12/18/2023 16:14:54 12/18/19 24 12/18/2023 CBC W/ AUTO DIFF nucleated red blood cells # 0.00 k/uL Not Available [facility] ([facility]) [address] [place] [address] [place], [address], 12/18/2023 16:14:54 12/18/19 24 12/18/2023 CBC W/ AUTO DIFF manual differential NO Not Available [facility] ([facility]) [address] [facility] [place], [address], 12/18/2023 16:14:54 12/18/19 24 12/18/2023 CBC W/ AUTO DIFF note Unles s other hernandez noted testi ng perfo [facility]med at: [facility] [address] [place] [address] Amilcar cho MD Not Available [facility] ([facility]) [address] [facility] [place], [address], 12/18/2023 16:14:54 12/18/19 24 12/18/2023 COMP METAB OLIC PANEL sodium 143 mmol/ L 137-14 7 Not Available [facility] ([facility]) [address] [place] [address] [place], [address], 12/18/2023 16:48:48 12/18/19 24 12/18/2023 COMP METAB OLIC PANEL potassium 4.6 mmol/ L 3.5-5. 1 Not Available [facility] ([facility]) [address] [place] [address] [place], [address], 12/18/2023 16:48:48 12/18/19 24 12/18/2023 COMP METAB OLIC PANEL chloride 103 mmol/ L 98-110 Not Available [facility] ([facility]) [address] [facility] [place], [address], 12/18/2023 16:48:48 12/18/19 24 12/18/2023 COMP METAB OLIC PANEL carbon dioxide 27 mmol/ L 21-30 Not Available [facility] ([facility]) [address] [place] [address] [place], [address], 12/18/2023 16:48:48 12/18/19 24 12/18/2023 COMP METAB OLIC PANEL anion gap 13 mmol/ L 6-14 Not Available [facility] ([facility]) [address] [place] [address] [place], [address], 12/18/2023 16:48:48 12/18/19 24 12/18/2023 COMP METAB OLIC PANEL glucose 89 mg/dL 70-115 Not Available [facility] ([facility]) [address] [facility] [place], [address], 12/18/2023 16:48:48 12/18/19 24 12/18/2023 COMP METAB OLIC PANEL BUN 23 mg/dL 7-17 high Not Available [facility] ([facility]) [address] [place] [address] [place], [address], 12/18/2023 16:48:48 12/18/19 24 12/18/2023 COMP METAB OLIC PANEL creatinine 1.2 mg/dL 0.5-1. 5 Not Available [facility] ([facility]) [address] [place] [address] [place], [address], 12/18/2023 16:48:48 12/18/19 24 12/18/2023 COMP METAB OLIC PANEL BUN/creatini ne ratio 19 10-20 Not Available [facility] ([facility]) [address] [place] [address] [place], [address], 12/18/2023 16:48:48 12/18/19 24 12/18/2023 COMP METAB [...] ortiz ing kiney funct ion. Not Available [facility] ([facility]) [address] [place] [address] [place], [address], 12/18/2023 16:48:48 10/30/20 24 12/18/2023 COMP METAB OLIC PANEL osmolality (calculated) 300 mosmo l/kg 275-30 1 OSMOL ALITY IS A CALCU LATIO N UTILI ZING THE SERUM /PLAS MA SODIU M, GLUCO SE AND UREA NITRO GEN (BUN) LEVEL S. FOR THE MOST ACCUR ATE RESUL T A MEASU RED SERUM OSMOL ALITY IS SUGGE STED. Not Available [facility] ([facility]) [address] [place] [address] [place], [address], 12/18/2023 16:48:48 12/18/19 24 12/18/2023 COMP METAB OLIC PANEL total protein 7.6 g/dL 6.2-8. 2 Not Available [facility] ([facility]) [address] [place] [address] [place], [address], 12/18/2023 16:48:48 12/18/19 24 12/18/2023 COMP METAB OLIC PANEL albumin 4.5 g/dL 3.5-5. 0 Not Available [facility] ([facility]) [address] [place] [address] [place], [address], 12/18/2023 16:48:48 12/18/19 24 12/18/2023 COMP METAB OLIC PANEL calcium 9.5 mg/dL 8.5-10 .8 Not Available [facility]) [address] [place] [address] [place], [address], 12/18/2023 16:48:48 12/18/19 24 12/18/2023 COMP METAB OLIC PANEL bilirubin total 0.3 mg/dL 0.2-1. 3 Not Available [facility] ([facility]) [address] [place] [address] [place], [address], 12/18/2023 16:48:48 12/18/19 24 12/18/2023 COMP METAB OLIC PANEL AST (SGOT) 27 IU/L 14-36 Not Available [facility] ([facility]) [address] [place] [address] [place], [address], 12/18/2023 16:48:48 12/18/19 24 12/18/2023 COMP METAB OLIC PANEL ALT (SGPT) 25 IU/L 0-35 Pleas e note new refer ence inter ahrika for ALT. Due to a recen t manuf actur er metho dolog y ortiz e, the refer ence inter harika for ALT is lower effec tive June 09, 2020. Not Available [facility] ([facility]) [address] [place] [address] [place], [address], 12/18/2023 16:48:48 12/18/19 24 12/18/2023 COMP METAB OLIC PANEL alk phosphatase 57 IU/L 38-126 Not Available [facility] ([facility]) [address] [place] [address] [place], [address], 12/18/2023 16:48:48 12/18/19 24 12/18/2023 COMP METAB OLIC PANEL note Unles s other hernandez noted testi ng perfo rmed at: [facility] [address] [place] [address] Amilcar cho MD Not Available [facility] ([facility]) [address] [place] [address] [place], [address], 12/18/2023 16:48:48 12/18/19 24 12/18/2023 IRON STUDY W FE/TI BC/UI BC/%S AT iron 111 ug/dL 37-170 Not Available [facility] ([facility]) [address] [place] [address] [place], [address], 12/18/2023 17:09:43 12/18/1912/18/2023 IRON STUDY W FE/TI BC/UI BC/%S AT total iron bind cap. 355 ug/dL 265-49 7 Not Available [facility] ([facility]) [address] [place] [address] [place], [address], 12/18/2023 17:09:43 12/18/1911 1212/18/2023 IRON STUDY W FE/TI BC/UI BC/%S AT unsaturated iron binding cap 244 ug/dL 150-37 5 Not Available [facility] ([facility]) [address] [place] [address] [place], [address], 12/18/2023 17:09:43 12/18/19 24 12/18/2023 IRON STUDY W FE/TI BC/UI BC/%S AT % saturation 31 % 15-55 Not Available [facility]) [address] [place] [address] [place], [address], 12/18/2023 17:09:43 12/18/19 24 12/18/2023 IRON STUDY W FE/TI BC/UI BC/%S AT note Unles s other hernandez noted testi ng perfo rmed at: [facility] [address] [place] [address] Amilcar cho MD Not Available [facility]) [address] [place] [address] [place], [address], 12/18/2023 17:09:43 12/18/19 24 12/18/2023 ELIJAH TIN ferritin 53 NG/mL 3-105 Not Available [facility] ([facility]) [address] [place] [address] [place], [address], 12/18/2023 17:25:18 12/18/19 24 12/18/2023 ELIJAH TIN note Unles s other hernandez noted testi ng perfo rmed at: [facility] [address] [place] [address] Amilcar cho MD Not Available [facility] ([facility]) [address] [place] [address] [place], [address], 12/18/2023 17:25:18 04/23/19 25 04/22/2024 CBC W/ AUTO DIFF WBC 6.39 K/uL 4.5-11 .5 Not Available [facility]) [address] [place] [address] [place], [address], 04/22/2024 15:09:35 04/23/19 25 04/22/2024 CBC W/ AUTO DIFF RBC 3.99 M/uL 4.0-5. 4 low Not Available [facility] ([facility]) [address] [place] [address] [place], [address], 04/22/2024 15:09:35 04/23/19 25 04/22/2024 CBC W/ AUTO DIFF HGB 11.6 g/dL 12.0-1 5.0 low Not Available [facility] ([facility]) [address] [place] [address] [place], [address], 04/22/2024 15:09:35 04/23/19 25 04/22/2024 CBC W/ AUTO DIFF HCT 35.4 % 35-49 Not Available [facility]) [address] [place] [address] [place], [address], 04/22/2024 15:09:35 04/23/19 25 04/22/2024 CBC W/ AUTO DIFF MCV 88.7 fL 80.0-1 00.0 Not Available [facility] ([facility]) [address] [place] [address] [place], [address], 04/22/2024 15:09:35 04/23/19 25 04/22/2024 CBC W/ AUTO DIFF MCH 29.1 pg 26.0-3 2.0 Not Available [facility] ([facility]) [address] [place] [address] [place], [address], 04/22/2024 15:09:35 04/23/19 25 04/22/2024 CBC W/ AUTO DIFF MCHC 32.8 g/dL 32.0-3 6.0 Not Available [facility]) [address] [place] [address] [place], [address], 04/22/2024 15:09:35 04/23/19 25 04/22/2024 CBC W/ AUTO DIFF RDW 13.9 % 11.5-1 4.5 Not Available [facility]) [address] [place] [address] [place], [address], 04/22/2024 15:09:35 04/23/19 25 04/22/2024 CBC W/ AUTO DIFF platelet count 197 K/uL 142-42 4 Not Available [facility]) [address] [place] [address] [place], [address], 04/22/2024 15:09:35 04/23/19 25 04/22/2024 CBC W/ AUTO DIFF MPV 10.7 fL 6.8-10 .2 high Not Available [facility]) [address] [place] [address] [place], [address], 04/22/2024 15:09:35 04/23/19 25 04/22/2024 CBC W/ AUTO DIFF neutrophil % 38.5 % 50-70 low Not Available [facility]) [address] [place] [address] [place], [address], 04/22/2024 15:09:35 04/23/19 25 04/22/2024 CBC W/ AUTO DIFF lymphocyte % 33.8 % 18.0-4 2.0 Not Available [facility]) [address] [place] [address] [place], [address], 04/22/2024 15:09:35 04/23/19 25 04/22/2024 CBC W/ AUTO DIFF monocyte % 18.3 % 2.0-11 .0 high Not Available [facility]) [address] [place] [address] [place], [address], 04/22/2024 15:09:35 04/23/19 25 04/22/2024 CBC W/ AUTO DIFF eosinophil % 8.0 % 1.0-3. 0 high Not Available [facility] ([facility]) [address] [place] [address] [place], [address], 04/22/2024 15:09:35 04/23/19 25 04/22/2024 CBC W/ AUTO DIFF basophil % 0.9 % 0.0-2. 0 Not Available [facility] ([facility]) [address] [place] [address] [place], [address], 04/22/2024 15:09:35 04/23/19 25 04/22/2024 CBC W/ AUTO DIFF immature granulocytes % 0.5 % 0.0-0. 8 Not Available [facility] ([facility]) [address] [place] [address] [place], [address], 04/22/2024 15:09:35 04/23/19 25 04/22/2024 CBC W/ AUTO DIFF nucleated red blood cells % 0.0 % Not Available [facility]) [address] [place] [address] [place], [address], 04/22/2024 15:09:35 04/23/19 25 04/22/2024 CBC W/ AUTO DIFF neutrophil # 2.46 K/uL Not Available [facility]) [address] [place] [address] [place], [address], 04/22/2024 15:09:35 04/23/19 25 04/22/2024 CBC W/ AUTO DIFF lymphocyte # 2.16 K/uL Not Available [facility]) [address] [place] [address] [place], [address], 04/22/2024 15:09:35 04/23/19 25 04/22/2024 CBC W/ AUTO DIFF monocyte # 1.17 K/uL Not Available [facility] ([facility]) [address] [place] [address] [place], [address], 04/22/2024 15:09:35 04/23/19 25 04/22/2024 CBC W/ AUTO DIFF eosinophil # 0.51 K/uL Not Available [facility] ([facility]) [address] [place] [address] [place], [address], 04/22/2024 15:09:35 04/23/19 25 04/22/2024 CBC W/ AUTO DIFF basophil # 0.06 K/uL Not Available [facility]) [address] [facility] [place], [address], 04/22/2024 15:09:35 04/23/19 25 04/22/2024 CBC W/ AUTO DIFF immature gramulocytes # 0.03 K/uL Not Available [facility] ([facility]) [address] [place] [address] [place], [address], 04/22/2024 15:09:35 04/23/19 25 04/22/2024 CBC W/ AUTO DIFF nucleated red blood cells # 0.00 k/uL Not Available [facility]) [address] [place] [address] [place], [address], 04/22/2024 15:09:35 04/23/19 25 04/22/2024 CBC W/ AUTO DIFF manual differential NO Not Available [facility] ([facility]) [address] [place] [address] [place], [address], 04/22/2024 15:09:35 04/23/19 25 04/22/2024 CBC W/ AUTO DIFF note Unles s other hernandez noted testi ng perfo rmed at: [facility] [address] [place] [address] Amilcar cho MD Not Available [facility]) [address] [place] [address] [place], [address], 04/22/2024 15:09:35 04/23/19 25 04/22/2024 COMP METAB OLIC PANEL sodium 138 mmol/ L 137-14 7 Not Available [facility]) [address] [place] [address] [place], [address], 04/22/2024 18:07:37 04/23/19 25 04/22/2024 COMP METAB OLIC PANEL potassium 4.6 mmol/ L 3.5-5. 1 Not Available [facility] ([facility]) [address] [facility] [place], [address], 04/22/2024 18:07:37 04/23/19 25 04/22/2024 COMP METAB OLIC PANEL chloride 104 mmol/ L 98-110 Not Available [facility] ([facility]) [address] [place] [address] [place], [address], 04/22/2024 18:07:37 04/23/19 25 04/22/2024 COMP METAB OLIC PANEL carbon dioxide 24 mmol/ L 21-30 Not Available [facility] ([facility]) [address] [place] [address] [place], [address], 04/22/2024 18:07:37 04/23/19 25 04/22/2024 COMP METAB OLIC PANEL anion gap 10 mmol/ L 6-14 Not Available [facility] ([facility]) [address] [facility] [place], [address], 04/22/2024 18:07:37 04/23/19 25 04/22/2024 COMP METAB OLIC PANEL glucose 92 mg/dL 70-115 Not Available [facility] ([facility]) [address] [place] [address] [place], [address], 04/22/2024 18:07:37 04/23/19 25 04/22/2024 COMP METAB OLIC PANEL BUN 20 mg/dL 7-17 high Not Available [facility] ([facility]) [address] [place] [address] [place], [address], 04/22/2024 18:07:37 04/23/19 25 04/22/2024 COMP METAB OLIC PANEL creatinine 1.0 mg/dL 0.5-1. 5 Not Available [facility] ([facility]) [address] [place] [address] [place], [address], 04/22/2024 18:07:37 04/23/19 25 04/22/2024 COMP METAB OLIC PANEL BUN/creatini ne ratio 20 10-20 Not Available [facility]) [address] [place] [address] [place], [address], 04/22/2024 18:07:37 04/23/19 25 04/22/2024 COMP METAB [...] ortiz ing kiney funct ion. Not Available [facility] ([facility]) [address] [place] [address] [place], [address], 04/22/2024 18:07:37 04/23/19 25 04/22/2024 COMP METAB OLIC PANEL osmolality (calculated) 289 mosmo l/kg 275-30 1 OSMOL ALITY IS A CALCU LATIO N UTILI ZING THE SERUM /PLAS MA SODIU M, GLUCO SE AND UREA NITRO GEN (BUN) LEVEL S. FOR THE MOST ACCUR ATE RESUL T A MEASU RED SERUM OSMOL ALITY IS SUGGE STED. Not Available [facility] ([facility]) [address] [place] [address] [place], [address], 04/22/2024 18:07:37 04/23/19 25 04/22/2024 COMP METAB OLIC PANEL total protein 7.4 g/dL 6.2-8. 2 Not Available [facility] ([facility]) [address] [place] [address] [place], [address], 04/22/2024 18:07:37 04/23/19 25 04/22/2024 COMP METAB OLIC PANEL albumin 4.5 g/dL 3.5-5. 0 Not Available [facility] (Pre-Op Clinic) [address] [place] [address] [place], [address], 04/22/2024 18:07:37 04/23/19 25 04/22/2024 COMP METAB OLIC PANEL calcium 9.3 mg/dL 8.5-10 .8 Not Available [facility] (Pre-Op Clinic) [address] [place] [address] [place], [address], 04/22/2024 18:07:37 04/23/19 25 04/22/2024 COMP METAB OLIC PANEL bilirubin total 0.6 mg/dL 0.2-1. 3 Not Available [facility] (Pre-Op Clinic) [address] [place] [address] [place], [address], 04/22/2024 18:07:37 04/23/19 25 04/22/2024 COMP METAB OLIC PANEL AST (SGOT) 28 IU/L 14-36 Not Available [facility] [facility] [address] [place] [address] [place], [address], 04/22/2024 18:07:37 04/23/19 25 04/22/2024 COMP METAB OLIC PANEL ALT (SGPT) 25 IU/L 0-35 Pleas e note new refer ence inter harika for ALT. Due to a recen t manuf actur er metho dolog y ortiz e, the refer ence inter harika for ALT is lower effec tive June 09, 2020. Not Available [facility] (Pre-Op [facility]) [address] [place] [address] [place], [address], 04/22/2024 18:07:37 04/23/19 25 04/22/2024 COMP METAB OLIC PANEL alk phosphatase 51 IU/L 38-126 Not Available [facility] ([facility]-Op [facility]) [address] [place] [address] [place], [address], 04/22/2024 18:07:37 04/23/19 25 04/22/2024 COMP METAB OLIC PANEL note Unles s other hernandez noted testi ng perfo rmed at: [facility] [address] [place] [place] [address] Amilcar cho MD Not Available [facility] ([facility]Op [facility]) [address] [place] [address] [place], [address], 04/22/2024 18:07:37 04/23/19 25 04/22/2024 IRON STUDY W FE/TI BC/UI BC/%S AT iron 112 ug/dL 37-170 Not Available [facility] ([facility]) [address] [place] [address] [place], [address], 04/22/2024 19:12:47 04/23/19 25 04/22/2024 IRON STUDY W FE/TI BC/UI BC/%S AT total iron bind cap. 342 ug/dL 265-49 7 Not Available [facility] ([facility]) [address] [place] [address] [place], [address], 04/22/2024 19:12:47 04/23/19 25 04/22/2024 IRON STUDY W FE/TI BC/UI BC/%S AT unsaturated iron binding cap 230 ug/dL 150-37 5 Not Available [facility] ([facility]) [address] [place] [address] [place], [address], 04/22/2024 19:12:47 04/23/19 25 04/22/2024 IRON STUDY W FE/TI BC/UI BC/%S AT % saturation 33 % 15-55 Not Available [facility] ([facility]) [address] [place] [address] [place], [address], 04/22/2024 19:12:47 04/23/19 25 04/22/2024 IRON STUDY W FE/TI BC/UI BC/%S AT note Unles s other hernandez noted testi ng perfo rmed at: [facility] [address] [place] [address] Amilcar cho MD Not Available [facility] ([facility]) [address] [place] [address] [place], [address], 04/22/2024 19:12:47 04/23/1904/22/2024 ELIJAH TIN note Unles s other hernandez noted testi ng perfo rmed at: [facility] [address] [place] [address] Amilcar cho MD Not Available [facility] ([facility]) [address] [place] [address] [place], [address], 04/23/2024 00:01:50 04/23/1904/23/2024 ELIJAH TIN ferritin 57 NG/mL 3-105 Not Available [facility] ([facility]) [address] [place] [address] [place], [address], 04/23/2024 00:01:50 09/17/19 25 09/16/2024 CBC W/ AUTO DIFF WBC 5.81 K/uL 4.5-11 .5 Not Available [facility] ([facility]) [address] [place] [address] [place], [address], 09/16/2024 12:27:51 09/17/19 25 09/16/2024 CBC W/ AUTO DIFF RBC 4.07 M/uL 4.0-5. 4 Not Available [facility] ([facility]) [address] [place] [address] [place], [address], 09/16/2024 12:27:51 09/17/19 25 09/16/2024 CBC W/ AUTO DIFF HGB 11.8 g/dL 12.0-1 5.0 low Not Available [facility] ([facility]) [address] [place] [address] [place], [address], 09/16/2024 12:27:51 09/17/19 25 09/16/2024 CBC W/ AUTO DIFF HCT 35.3 % 35-49 Not Available [facility] ([facility]) [address] [place] [address] [place], [address], 09/16/2024 12:27:51 09/17/19 25 09/16/2024 CBC W/ AUTO DIFF MCV 86.7 fL 80.0-1 00.0 Not Available [facility] ([facility]) [address] [place] [address] [place], [address], 09/16/2024 12:27:51 09/17/19 25 09/16/2024 CBC W/ AUTO DIFF MCH 29.0 pg 26.0-3 2.0 Not Available [facility] ([facility]) [address] [place] [address] [place], [address], 09/16/2024 12:27:51 09/17/19 25 09/16/2024 CBC W/ AUTO DIFF MCHC 33.4 g/dL 32.0-3 6.0 Not Available [facility] ([facility]) [address] [place] [address] [place], [address], 09/16/2024 12:27:51 09/17/19 25 09/16/2024 CBC W/ AUTO DIFF RDW 13.5 % 11.5-1 4.5 Not Available [facility] ([facility]) [address] [place] [address] [place], [address], 09/16/2024 12:27:51 09/17/19 25 09/16/2024 CBC W/ AUTO DIFF platelet count 187 K/uL 142-42 4 Not Available [facility] ([facility]) [address] [place] [address] [place], [address], 09/16/2024 12:27:51 09/17/19 25 09/16/2024 CBC W/ AUTO DIFF MPV 10.7 fL 6.8-10 .2 high Not Available [facility] ([facility]) [address] [place] [address] [place], [address], 09/16/2024 12:27:51 09/17/19 25 09/16/2024 CBC W/ AUTO DIFF neutrophil % 46.2 % 50-70 low Not Available [facility] ([facility]) [address] [place] [address] [place], [address], 09/16/2024 12:27:51 09/17/1909/16/2024 CBC W/ AUTO DIFF lymphocyte % 30.1 % 18.0-4 2.0 Not Available [facility] ([facility]) [address] [place] [address] [place], [address], 09/16/2024 12:27:51 09/17/1909/16/2024 CBC W/ AUTO DIFF monocyte % 17.2 % 2.0-11 .0 high Not Available [facility] ([facility]) [address] [place] [address] [place], [address], 09/16/2024 12:27:51 09/17/1909/16/2024 CBC W/ AUTO DIFF eosinophil % 5.3 % 1.0-3. 0 high Not Available [facility] ([facility]) [address] [place] [address] [place], [address], 09/16/2024 12:27:51 09/17/1909/16/2024 CBC W/ AUTO DIFF basophil % 0.9 % 0.0-2. 0 Not Available [facility] ([facility]) [address] [place] [address] [place], [address], 09/16/2024 12:27:51 09/17/1909/16/2024 CBC W/ AUTO DIFF immature granulocytes % 0.3 % 0.0-0. 8 Not Available [facility] (Pre-Op Clinic) [address] [place] [address] [place], [address], 09/16/2024 12:27:51 09/17/1909/16/2024 CBC W/ AUTO DIFF nucleated red blood cells % 0.0 % Not Available [facility] ([facility]Op [facility]) [address] [place] [address] [place], [address], 09/16/2024 12:27:51 09/17/19 25 09/16/2024 CBC W/ AUTO DIFF neutrophil # 2.68 K/uL Not Available [facility] ([facility]) [address] [place] [address] [place], [address], 09/16/2024 12:27:51 09/17/19 25 09/16/2024 CBC W/ AUTO DIFF lymphocyte # 1.75 K/uL Not Available [facility] ([facility]) [address] [place] [address] [place], [address], 09/16/2024 12:27:51 09/17/19 25 09/16/2024 CBC W/ AUTO DIFF monocyte # 1.00 K/uL Not Available [facility] (Pre-Op Clinic) [address] [place] [address] [place], [address], 09/16/2024 12:27:51 09/17/19 25 09/16/2024 CBC W/ AUTO DIFF eosinophil # 0.31 K/uL Not Available [facility] ([facility]Op [facility]) [address] [place] [address] [place], [address], 09/16/2024 12:27:51 09/17/19 25 09/16/2024 CBC W/ AUTO DIFF basophil # 0.05 K/uL Not Available [facility] ([facility]) [address] [place] [address] [place], [address], 09/16/2024 12:27:51 09/17/19 25 09/16/2024 CBC W/ AUTO DIFF immature gramulocytes # 0.02 K/uL Not Available [facility] (Pre-Op Clinic) [address] [place] [address] [place], [address], 09/16/2024 12:27:51 09/17/19 25 09/16/2024 CBC W/ AUTO DIFF nucleated red blood cells # 0.00 k/uL Not Available [facility] (Pre-Op [facility]) [address] [place] [address] [place], [address], 09/16/2024 12:27:51 09/17/19 25 09/16/2024 CBC W/ AUTO DIFF manual differential NO Not Available [facility] ([facility]Op [facility]) [address] [place] [address] [place], [address], 09/16/2024 12:27:51 09/17/19 25 09/16/2024 CBC W/ AUTO DIFF note Unles s other hernandez noted testi ng perfo rmed at: [facility] [address] [place] [address] Amilcar cho MD Not Available [facility] ([facility]Op [facility]) [address] [place] [address] [place], [address], 09/16/2024 12:27:51 09/17/19 25 09/16/2024 COMP METAB OLIC PANEL sodium 139 mmol/ L 137-14 7 Not Available [facility] ([facility]) [address] [place] [address] [place], [address], 09/16/2024 12:37:47 09/17/19 25 09/16/2024 COMP METAB OLIC PANEL potassium 5.2 mmol/ L 3.5-5. 1 high Not Available [facility] (Pre-Op [facility]) [address] [place] [address] [place], [address], 09/16/2024 12:37:47 09/17/19 25 09/16/2024 COMP METAB OLIC PANEL chloride 105 mmol/ L 98-110 Not Available [facility] ([facility]) [address] [place] [address] [place], [address], 09/16/2024 12:37:47 09/17/19 25 09/16/2024 COMP METAB OLIC PANEL carbon dioxide 23 mmol/ L 21-30 Not Available [facility] (Pre-Op [facility]) [address] [place] [address] [place], [address], 09/16/2024 12:37:47 09/17/19 25 09/16/2024 COMP METAB OLIC PANEL anion gap 11 mmol/ L 6-14 Not Available [facility] ([facility]) [address] [place] [address] [place], [address], 09/16/2024 12:37:47 09/17/19 25 09/16/2024 COMP METAB OLIC PANEL glucose 99 mg/dL 70-115 Not Available [facility] ([facility]) [address] [place] [address] [place], [address], 09/16/2024 12:37:47 09/17/19 25 09/16/2024 COMP METAB OLIC PANEL BUN 19 mg/dL 7-17 high Not Available [facility] ([facility]) [address] [place] [address] [place], [address], 09/16/2024 12:37:47 09/17/19 25 09/16/2024 COMP METAB OLIC PANEL creatinine 0.9 mg/dL 0.5-1. 5 Not Available [facility] ([facility]) [address] [place] [address] [place], [address], 09/16/2024 12:37:47 09/17/19 25 09/16/2024 COMP METAB OLIC PANEL BUN/creatini ne ratio 21 10-20 high Not Available [facility] ([facility]) [address] [place] [address] [place], [address], 09/16/2024 12:37:47 09/17/19 25 09/16/2024 COMP METAB OLIC PANEL glom filtration rate 64 mL/mi n >60- GFR LIMIT ATION : The eGFR equat [...] ortiz ing kiney funct ion. Not Available [facility] ([facility]Op [facility]) [address] [place] [address] [place], [address], 09/16/2024 12:37:47 09/17/19 25 09/16/2024 COMP METAB OLIC PANEL osmolality (calculated) 291 mosmo l/kg 275-30 1 OSMOL ALITY IS A CALCU LATIO N UTILI ZING THE SERUM /PLAS MA SODIU M, GLUCO SE AND UREA NITRO GEN (BUN) LEVEL S. FOR THE MOST ACCUR ATE RESUL T A MEASU RED SERUM OSMOL ALITY IS SUGGE STED. Not Available [facility] ([facility]) [address] [place] [address] [place], [address], 09/16/2024 12:37:47 09/17/19 25 09/16/2024 COMP METAB OLIC PANEL total protein 7.6 g/dL 6.2-8. 2 Not Available [facility] ([facility]) [address] [place] [address] [place], [address], 09/16/2024 12:37:47 09/17/19 25 09/16/2024 COMP METAB OLIC PANEL albumin 4.5 g/dL 3.5-5. 0 Not Available [facility] ([facility]) [address] [place] [address] [place], [address], 09/16/2024 12:37:47 09/17/19 25 09/16/2024 COMP METAB OLIC PANEL calcium 9.0 mg/dL 8.5-10 .8 Not Available [facility] ([facility]) [address] [place] [address] [place], [address], 09/16/2024 12:37:47 09/17/19 25 09/16/2024 COMP METAB OLIC PANEL bilirubin total 0.7 mg/dL 0.2-1. 3 Not Available [facility] ([facility]) [address] [place] [address] [place], [address], 09/16/2024 12:37:47 09/17/19 25 09/16/2024 COMP METAB OLIC PANEL AST (SGOT) 29 IU/L 14-36 Not Available [facility] ([facility]) [address] [place] [address] [place], [address], 09/16/2024 12:37:47 09/17/19 25 09/16/2024 COMP METAB OLIC PANEL ALT (SGPT) 24 IU/L 0-35 Pleas e note new refer ence inter harika for ALT. Due to a recen t manuf actur er metho dolog y ortiz e, the refer ence inter harika for ALT is lower effec tive June 09, 2020. Not Available [facility] (Pre[facility]Op [facility]) [address] [place] [address] [place], [address], 09/16/2024 12:37:47 09/17/19 25 09/16/2024 COMP METAB OLIC PANEL alk phosphatase 51 IU/L 38-126 Not Available [facility] (Pre-Op [facility]) [address] [place] [address] [place], [address], 09/16/2024 12:37:47 09/17/19 25 09/16/2024 COMP METAB OLIC PANEL note Unles s other hernandez noted testi ng perfo rmed at: [facility] [address] [place] [address] Amilcar cho MD Not Available [facility] (Pre-Op Clinic) [address] [place] [address] [place], [address], 09/16/2024 12:37:47 09/17/19 25 09/16/2024 IRON STUDY W FE/TI BC/UI BC/%S AT iron 98 ug/dL 37-170 Not Available [facility] ([facility]) [address] [place] [address] [place], [address], 09/16/2024 15:21:55 09/17/19 25 09/16/2024 IRON STUDY W FE/TI BC/UI BC/%S AT total iron bind cap. 346 ug/dL 265-49 7 Not Available [facility] (Pre-Op Clinic) [address] [place] [address] [place], [address], 09/16/2024 15:21:55 09/17/19 25 09/16/2024 IRON STUDY W FE/TI BC/UI BC/%S AT unsaturated iron binding cap 248 ug/dL 150-37 5 Not Available [facility] ([facility]) [address] [place] [address] [place], [address], 09/16/2024 15:21:55 09/17/19 25 09/16/2024 IRON STUDY W FE/TI BC/UI BC/%S AT % saturation 28 % 15-55 Not Available [facility] ([facility]) [address] [place] [address] [place], [address], 09/16/2024 15:21:55 09/17/19 25 09/16/2024 IRON STUDY W FE/TI BC/UI BC/%S AT note Unles s other hernandez noted testi ng perfo rmed at: [facility] [address] [place] [address] Amilcar cho MD Not Available [facility] ([facility]) [address] [place] [address] [place], [address], 09/16/2024 15:21:55 09/17/19 25 09/16/2024 ELIJAH TIN ferritin 78 NG/mL 3-105 Not Available [facility] ([facility]) [address] [place] [address] [place], [address], 09/16/2024 17:47:50 09/17/19 25 09/16/2024 ELIJAH TIN note Unles s other hernandez noted testi ng perfo rmed at: [facility] [address] [place] [address] Amilcar cho MD Not Available [facility] ([facility]) [address] [place] [address] [place], [address], 09/16/2024 17:47:50 09/17/19 25 09/16/2024 KAPPA /[place] DA FREE LIGHT CHAIN S note Unles s other hernandez noted testi ng perfo rmed at: [facility] [address] [place] [address] Amilcar cho MD Not Available [facility] ([facility]) [address] [place] [address] [place], [address], 09/17/2024 15:12:05 09/17/19 25 09/17/2024 KAPPA /[place] DA FREE LIGHT CHAIN S free kappa lt chains,S 24.3 mg/L 3.3-19 .4 high Not Available [facility] ([facility]) [address] [place] [address] [place], [address], 09/17/2024 15:12:05 09/17/19 25 09/17/2024 KAPPA /[place] DA FREE LIGHT CHAIN S free lambda lt chains,S 18.0 mg/L 5.7-26 .3 Not Available [facility] ([facility]) [address] [place] [address] [place], [address], 09/17/2024 15:12:05 09/17/19 25 09/17/2024 KAPPA /[place] FREE LIGHT CHAIN S kappa/lambda ratio,S 1.35 0.26-1 .65 Perfo rmed at: [facility] [address] Lab Direc tor: Chase cevallos PhD, Phone : [phone] Not Available [facility] ([facility]) [address] [place] [address] [place], [address], 09/17/2024 15:12:05 09/17/19 25 09/16/2024 PROTE IN ELECT RO SERUM note Unles s other hernandez noted testi ng perfo rmed at: [facility] [address] [place] [address] Amilcar cho MD Not Available [facility] ([facility]) [address] [place] [address] [place], [address], 09/17/2024 16:18:11 09/17/19 25 09/17/2024 PROTE IN ELECT RO SERUM protein, total, serum 7.0 g/dL 6.0-8. 5 Not Available [facility] ([facility]) [address] [facility] [place], [address], 09/17/2024 16:18:11 09/17/19 25 09/17/2024 PROTE IN ELECT RO SERUM albumin 3.7 g/dL 2.9-4. 4 Not Available [facility] ([facility]) [address] [place] [address] [place], [address], 09/17/2024 16:18:11 09/17/19 25 09/17/2024 PROTE IN ELECT RO SERUM swwme-5-hqdl ulin 0.2 g/dL 0.0-0. 4 Not Available [facility] ([facility]) [address] [place] [address] [place], [address], 09/17/2024 16:18:11 09/17/19 25 09/17/2024 PROTE IN ELECT RO SERUM ufwit-2-rmsr ulin 0.8 g/dL 0.4-1. 0 Not Available [facility] ([facility]) [address] [place] [address] [place], [address], 09/17/2024 16:18:11 09/17/19 25 09/17/2024 PROTE IN ELECT RO SERUM beta globulin 1.0 g/dL 0.7-1. 3 Not Available [facility] ([facility]) [address] [place] [address] [place], [address], 09/17/2024 16:18:11 09/17/19 25 09/17/2024 PROTE IN ELECT RO SERUM gamma globulin 1.2 g/dL 0.4-1. 8 Not Available [facility] ([facility]) [address] [place] [address] [place], [address], 09/17/2024 16:18:11 09/17/19 25 09/17/2024 PROTE IN ELECT RO SERUM M-spike Not Observ ed g/dL not observ ed Not Available [facility] ([facility]) [address] [place] [address] [place], [address], 09/17/2024 16:18:11 09/17/19 25 09/17/2024 PROTE IN ELECT RO SERUM globulin, total 3.3 g/dL 2.2-3. 9 Not Available [facility] ([facility]) [address] [place] [address] [place], [address], 09/17/2024 16:18:11 09/17/19 25 09/17/2024 PROTE IN ELECT RO SERUM A/G ratio 1.1 0.7-1. 7 Not Available [facility] ([facility]) [address] [place] [address] [place], [address], 09/17/2024 16:18:11 09/17/19 25 09/17/2024 PROTE IN ELECT RO SERUM please note: Commen t . Prote in elect ropho resis scan will follo w via compu ter, mail, or couri er daly vasques. Not Available [facility] ([facility]) [address] [place] [address] [place], [address], 09/17/2024 16:18:11 09/17/19 25 09/17/2024 PROTE IN ELECT RO SERUM pdf . Perfo rmed at: - [place] [address] 982 Lab Direc tor: Chase cevallos PhD, Phone : [phone] Not Available [facility] ([facility]) [address] [place] [address] [place], [address], 09/17/2024 16:18:11 09/17/19 25 09/16/2024 IMMUN OFIXA TION SERUM note Unles s other hernandez noted testi ng perfo rmed at: [facility] [address] [place] [address] Amilcar cho MD Not Available [facility] ([facility]) [address] [place] [address] [place], [address], 09/18/2024 16:17:20 09/17/19 25 09/18/2024 IMMUN OFIXA TION SERUM immunofixati on result, serum Commen t delta Immun ofixa tion shows IgG monoc lonal prote in with lambd a light chain speci ficit y. Not Available [facility] ([facility]) [address] [place] [address] [place], [address], 09/18/2024 16:17:20 09/17/19 25 09/18/2024 IMMUN OFIXA TION SERUM immunoglobul in g, qn, serum 1234 mg/dL 586-16 02 Not Available [facility] ([facility]) [address] [place] [address] [place], [address], 09/18/2024 16:17:20 09/17/19 25 09/18/2024 IMMUN OFIXA TION SERUM immunoglobul in A, qn, serum 238 mg/dL 64-422 Not Available [facility] (Pre-Op Clinic) [address] [place] [address] [place], [address], 09/18/2024 16:17:20 09/17/19 25 09/18/2024 IMMUN OFIXA TION SERUM immunoglobul in M, qn, serum 83 mg/dL 26-217 Perfo rmed at: - [facility] [address] [place] [address] Lab Direc tor: Chase cevallos PhD, Phone : [phone] Perfo rmed at: - [facility] [address] [place] [address] 12[address] Lab Direc tor: Chase cevallos PhD, Phone : [phone] Not Available [facility] ([facility]) [address] [place] [address] [place], [address], 09/18/2024 16:17:20 Result Notes None recorded. Problems Name Problem SNOMED Code Status Onset Date Resolution Date Notes Provider Name and Address Organization Details Recorded Time Leukopenia 81954266 Active 2022 Rakel pimentel [place] [facility] [place] & [place] 16:31:19 Cardiac pacemaker in situ 473925560 Active 2024 Blanca Zheng MD [address] [facility], [place], [address] , [place] [facility] [place] 10:27:20 Ventricular tachycardia 64505135 Active 2024 Blanca Zheng MD [address] [facility], [place], [address] , [place] [facility] [place] 10:27:38 Problem Notes None recorded. Procedures Surgical History Date Name Laterality Status Provider Name and Address Organization Details Recorded Time 09/17/19 25 Venipuncture completed Kyung Genoveva [place] [facility] [place] 09/16/2024 09:22:53 07/30/19 25 insertion of pacemaker pulse generator completed Rakel TORRES - [facility] - [place] & [place] 12/22/2024 10:48:27 04/23/19 25 Venipuncture [place] Kyung Genoveva [place] 04/22/2024 10:34:01 12/18/19 24 Venipuncture completed Isabell Kendall [place] [facility] 12/18/2023 11:14:08 08/16/19 24 [place]ip[place] [facility] [place] 08/16/2023 11:06:18 02/15/20 23 Venipuncture [place] Ky[place]oveva [place] [facility] [place] 02/14/2023 10:19:39 10/30/19 23 Venipuncture completed Isabell TORRES - [facility] - [place] & [place] 10/29/2022 10:06:09 07/28/19 23 Venipuncture completed Jessica Etienne [place] [facility] [place] 07/27/2022 10:04:42 06/09/19 23 Venipuncture completed Saulo TORRES - [facility] - [place] & [place] 06/08/2022 09:28:25 04/27/19 23 Venipuncture completed Saulo TORRES - [facility] - [place] & [place] 04/26/2022 10:30:39 01/10/20 22 Venipuncture completed Jessica TORRES - [facility] - [place] & [place] 01/09/2022 11:24:01 10/03/19 22 completed Isabell TORRES - [facility] - [place] & [place] 10/29/2022 09:42:57 06/06/19 16 colonoscopy completed Isabell TORRES - [facility] - [place] & [place] 12/18/2023 11:11:34 08/09/19 12 implantation of cardiac pacemaker completed Isabell TORRES - [facility] - [place] & [place] 12/18/2023 11:11:08 maintenance procedure for cardiac pacemaker system completed Isabell TORRES - [facility] - [place] & [place] 10/29/2022 09:44:27 excision of nipple completed Isabell TORRES - [facility] - [place] & [place] 10/29/2022 09:44:38 Imaging Results None recorded. Procedure [...] in Arterial blood by Pulse oximetry Systolic And Diastolic Provider Name and Address Organization Details Last Updated DateTime 5 161.29 cm 98.1 [degF] 88 /min 95 % 95 % 118/60 mm[Hg] [facility] & [place] 5 10:23:18 Date Recorded Body height Body mass index (BMI) Body weight Body temperature Provider Name and Address Organization Details Last Updated DateTime 07/22/2024 161.29 cm 25.8 kg/m2 09543.95 g 98.8 [degF] Annette Uribe [facility] & [place] 07/22/2024 13:11:34 Date Recorded Body height Body mass index (BMI) Body weight Body temperature Oxygen saturation Oxygen saturation in Arterial blood by Pulse oximetry Heart rate Systolic And Diastolic Provider Name and Address Organization Details Last Updated DateTime 5 161.29 cm 25.8 kg/m2 22489.6 7 g 98.1 [degF] 99 % 99 % 82 /min 133/80 mm[Hg] [facility] & [place] 5 09:04:31 Date Recorded Body height Body mass index (BMI) Body weight Oxygen saturation Oxygen saturation in Arterial blood by Pulse oximetry Heart rate Body temperature Systolic And Diastolic Provider Name and Address Organization Details Last Updated DateTime 4 161.29 cm 26.2 kg/m2 04997.8 6 g 99 % 99 % 69 /min 97.3 [degF] 118/58 mm[Hg] Isabell Kendall [facility] [place] 4 11:05:03 Date Recorded Body height Body mass index (BMI) Body weight Body temperature Oxygen saturation Oxygen saturation in Arterial blood by Pulse oximetry Heart rate Systolic And Diastolic Provider Name and Address Organization Details Last Updated DateTime 5 161.29 cm 25.3 kg/m2 12316.6 1 g 97.3 [degF] 97 % 97 % 91 /min 121/67 mm[Hg] Rakel Cabrera [facility] [place] 10:38:08 Social History Question Answer Notes LastModified by Organizat ion Details LastModified Time Tobacco Smoking Status Never Smoker Jessica Etienne [facility], [facility] [place] 01/09/2022 10:56:43 Do You Have An Advance Directive? No [email or web address] Information not available 10/29/2022 Are You Blind Or Do You Have Difficulty Seeing? No [email or web address] Information not available 10/29/2022 What Is Your Level Of Caffeine Consumption? Occasional [email or web address] Information not available 12/18/2023 What Was The Date Of Your Most Recent Tobacco Screening? 12/22/2024 [email or web address] Information not available 12/22/2024 Are You Passively Exposed To Smoke? No [email or web address] Information not available 10/29/2022 How Much Tobacco Do You Smoke? No Information not available 10/29/2022 Has Tobacco Cessation Counseling Been Provided? No [email or web address] Information not available 10/29/2022 Sex: Unknown Functional Status Question Answer Note LastModified by Organizat ion Details LastModified Time Do you use any illicit or recreational drugs? No [email or web address] Information not available 01/09/2022 Do you or have you ever used any other forms of tobacco or nicotine? No [email or web address] Information not available 12/18/2023 What is your level of alcohol consumption? None [email or web address] Information not available 01/09/2022 Do you or have you ever used smokeless tobacco? Never used smokeless tobacco [email or web address] Information not available 10/29/2022 What is your exercise level? Moderate [email or web address] Information not available 10/29/2022 Mental Status Question Answer Note LastModified by Organization D etails LastModified Time Do you feel stressed (tense, restless, nervous, or anxious, or unable to sleep at night)? [id number] [email or web address] Information not available 10/29/2022 Family History Relationship Description Onset Age of this Age Resolved Age Notes LastModified by Organization Details LastModified Time Maternal Aunt Disorder of endocrine system pt. added direct ly (01/06) [email or web address] Not available 01/06/2022 12:23:22 Maternal Aunt Heart disease [email or web address] Not available 2021 10:59:26 Father Cerebral hemorrhage [email or web address] Not available 04/22 10:19:37 Father Heart disease [...] ICD10 Code Diagnosis IMO Codes Diagnosis Note [id number] Beth Stephenson PA-C [facility] [address] [place] [address] 01/09/2022 10:42:02 01/09/2022 11:18:21 Anemia 229962044 D64.9 Labs on August 06, 2019. White blood cell count 7.0 red blood count 3.68. Hemoglobin 10.9 and hematocrit 33.1. Platelet count 535655. No immature cells seen on . Serum iron normal at 68. Iron binding [...] 10.4 hematocrit 32.6. MCV 90.6. Platelet count 315560. Creatinine 1.0 and total protein normal at [...] hematocrit 33.1. Iron studies normal. Platelet count 192722. Normal differenti al. Renal function with creatinine 1.1. Patient returns on December 20, 2020. will repeat labs today.Labs on December 20, 2020 with white blood cell count 6.34. Red blood count 4.19. Hemoglobin 12.3 and hematocrit 36.8. Iron studies normal. Platelet count 208723. Normal differenti al. Normal ferritin. Renal function with creatinine 1.1. Patient returns to clinic on January 09, 2022. Patient denies any acute complaints . Will repeat labs and FU with recommenda [email or web address]. Chronic ki dney disease stage 3 110436354 N18.30 Labs with evidence of stage 3 chronic kidney disease. Will follow up additional labs today. [id number] Izabella Diez PA-C [facility] [address] [place] [address] 04/26/2022 09:59:30 04/26/2022 10:30:32 Anemia [id number] D64.9 Labs on August 06, 2019. White blood cell count 7.0 red blood count 3.68. Hemoglobin 10.9 and hematocrit 33.1. Platelet count 359144. No immature cells seen on differenti al. [...] 10.4 hematocrit 32.6. MCV 90.6. Platelet count 072842. Creatinine 1.0 and total protein normal at [...] hematocrit 33.1. Iron studies normal. Platelet count 731485. Normal differenti al. Renal function with creatinine 1.1. Patient returns on December 20, 2020. will repeat labs today.Labs on December 20, 2020 with white blood cell count 6.34. Red blood count 4.19. Hemoglobin 12.3 and hematocrit 36.8. Iron studies normal. Platelet count 355245. Normal differenti al. Normal ferritin. Renal function with creatinine 1.1. Patient returns to clinic on January 09, 2022. Patient denies any acute complaints . Will repeat labs and FU with recommenda tions.Jessica ent returns to clinic on April 26, 2022. Patient denies any new acute complaints . Will repeat labs with continue observatio n. Chronic ki dney disease stage 3 [id number] N18.30 Labs with evidence of stage 3 chronic kidney disease. Will follow up additional labs today. [id number] Izabella Diez PA-C [facility] [address] [place] [address] 06/08/2022 09:21:21 06/08/2022 09:40:05 Chronic kidney disease stage 3 134712103 N18.30 Labs with evidence of stage 3 chronic kidney disease. Will follow up additional labs today. [id number] Izabella Diez PA-C [facility] [address] [place] [address] 07/27/2022 09:28:42 07/27/2022 10:00:37 Anemia 212754884 D64.9 Labs on August 06, 2019. White blood cell count 7.0 red blood count 3.68. Hemoglobin 10.9 and hematocrit 33.1. Platelet count 433767. No immature cells seen on differenti al. [...] 10.4 hematocrit 32.6. MCV 90.6. Platelet count 592252. Creatinine 1.0 and total protein normal at [...] hematocrit 33.1. Iron studies normal. Platelet count 880052. Normal differenti al. Renal function with creatinine 1.1. Patient returns on December 20, 2020. will repeat labs today.Labs on December 20, 2020 with white blood cell count 6.34. Red blood count 4.19. Hemoglobin 12.3 and hematocrit 36.8. Iron studies normal. Platelet count 571101. Normal differenti al. Normal ferritin. Renal function [...] n. Chronic ki dney disease stage 3 [id number] N18.30 Labs with evidence of stage 3 chronic kidney disease. Will follow up additional labs today. [id number] Izabella Diez PA-C [facility] [address] [place] [address] 10/29/2022 09:24:27 10/29/2022 10:12:53 Anemia 116196318 D64.9 Labs on August 06, 2019. White blood cell count 7.0 red blood count 3.68. Hemoglobin 10.9 and hematocrit 33.1. Platelet count 095328. No immature cells seen on differenti al. [...] 10.4 hematocrit 32.6. MCV 90.6. Platelet count 032849. Creatinine 1.0 and total protein normal at [...] hematocrit 33.1. Iron studies normal. Platelet count 204584. Normal differenti al. Renal function with creatinine 1.1. Patient returns on December 20, 2020. will repeat labs today.Labs on December 20, 2020 with white blood cell count 6.34. Red blood count 4.19. Hemoglobin 12.3 and hematocrit 36.8. Iron studies normal. Platelet count 803326. Normal differenti al. Normal ferritin. Renal function [...] n. Chronic ki dney disease stage 3 882516421 N18.30 Labs with evidence of stage 3 chronic kidney disease. Will follow up additional labs today. Anemia in chronic kidney disease 519652129 D63.1 Labs on July 27, 2022 with stable hemoglobin 11.8 normal iron studies normal ferritin. Will continue with observatio n.Patient presents to clinic on October 29, 2022. Patient denies any new acute complaints . Will repeat labs for continued hopeful observatio n. Patient has not needed erythropoi etin supplement ation due to hemoglobin consistent ly > 10. [id number] Mauricio Guzmán MD [facility] [address] [place] [address] 02/14/2023 09:45:10 02/14/2023 10:26:18 Anemia in chronic kidney disease 451377968 D63.1 Labs on July 27, 2022 with stable hemoglobin 11.8 normal iron studies normal ferritin. Will continue with observatio n.Patient presents to clinic on October 29, 2022. Patient denies any new acute complaints . Will repeat labs for continued hopeful observatio n. Patient has not needed erythropoi etin supplement ation due to hemoglobin consistent ly > 10. Anemia 439256808 D64.9 Labs on August 06, 2019. White blood cell count 7.0 red blood count 3.68. Hemoglobin 10.9 and hematocrit 33.1. Platelet count 341919. No immature cells seen on differenti al. [...] 10.4 hematocrit 32.6. MCV 90.6. Platelet count 764763. Creatinine 1.0 and total protein normal at [...] today. Chronic ki dney disease stage 3 [id number] N18.30 Labs with evidence of stage 3 chronic kidney disease. Will follow up additional labs today. [id number] Izabella Diez PA-C [facility] [address] [place] [address] 08/16/2023 10:35:39 08/16/2023 11:19:14 Anemia in chronic kidney disease 498135990 D63.1 Labs on July 27, 2022 with [...] hemoglobin consistent ly less than 10. Anemia 545254195 D64.9 Labs on August 06, 2019. White blood cell count 7.0 red blood count 3.68. Hemoglobin 10.9 and hematocrit 33.1. Platelet count 054336. No immature cells seen on al. Serum iron normal at 68. Iron binding capacity of 314. Labs on July 23, 2019 with GFR at 46 and creatinine at 1.2. Consistent with stage 3 chronic kidney disease. Hemoglobin 10.6 red blood cell count 3.64 platelet count 119714. Normal TSH. Labs on August 25, 2019 with white blood cell count 7.86 red blood count 3.6 hemoglobin 10.4 hematocrit 32.6. MCV 90.6. Platelet count 135455. Creatinine 1.0 and total protein normal at [...] today. Chronic ki dney disease stage 3 862812244 N18.30 Labs with evidence of stage 3 chronic kidney disease. Will follow up additional labs today. [id number] Izabella Diez PA-C [facility] [address] [facility] [place] [address] 12/18/2023 10:47:51 12/18/2023 11:38:09 Anemia in chronic kidney disease 964888257 D63.1 Labs on July 27, 2022 with [...] new fatigue. Will repeat labs today. Anemia 673221997 D64.9 Labs on August 06, 2019. White blood cell count 7.0 red blood count 3.68. Hemoglobin 10.9 and hematocrit 33.1. Platelet count 369045. No immature cells seen on al. Serum [...] 10.4 hematocrit 32.6. MCV 90.6. Platelet count 436051. Creatinine 1.0 and total protein normal at [...] today. Chronic ki dney disease stage 3 276439630 N18.30 Labs with evidence of stage 3 chronic kidney disease. Will follow up additional labs today. [id number] Izabella Diez PA-C [facility] [address] [place] [facility] [place] [address] 04/22/2024 10:19:04 04/22/2024 10:43:14 Anemia in chronic kidney disease 563057590 D63.1 Labs on July 27, 2022 with [...] will initiate erythropoi etin supplement ation. Anemia 706301512 D64.9 Labs on August 06, 2019. White blood cell count 7.0 red blood count 3.68. Hemoglobin 10.9 and hematocrit 33.1. Platelet count 022997. No immature cells seen on al. Serum iron normal at 68. Iron binding capacity of 314. Labs on July 23, 2019 with GFR at 46 and creatinine at 1.2. Consistent with stage 3 chronic kidney disease. Hemoglobin 10.6 red blood cell count 3.64 platelet count 481906. Normal TSH. Labs on August 25, 2019 with white blood cell count 7.86 red blood count 3.6 hemoglobin 10.4 hematocrit 32.6. MCV 90.6. Platelet count 948070. Creatinine 1.0 and total protein normal at [...] today. Chronic ki dney disease stage 3 223809725 N18.30 Labs with evidence of stage 3 chronic kidney disease. Will follow up additional labs today. 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 [id number] Izabella Diez PA-C [facility] [address] [place] [address] 09/16/2024 09:00:07 09/16/2024 09:33:40 Anemia in chronic kidney disease 425864143 D63.1 Labs on July 27, 2022 with [...] replaced and is feeling great. Will repeat labs Anemia 092073505 D64.9 Labs on August 06, 2019. White blood cell count 7.0 red blood count 3.68. Hemoglobin 10.9 and hematocrit 33.1. Platelet count 797690. No immature cells seen on al. Serum [...] 10.4 hematocrit 32.6. MCV 90.6. Platelet count 256241. Creatinine 1.0 and total protein normal at [...] today. Chronic ki dney disease stage 3 671637485 N18.30 Labs with evidence of stage 3 chronic kidney disease. Will follow up additional labs today. Izabella Diez PA-C [facility] [address] [place] [address] 12/22/2024 10:28:13 12/22/2024 11:03:37 Anemia in chronic kidney disease 760509091 D63.1 Labs on July 27, 2022 with [...] studies. Will continue with observatio n. Anemia 797589808 D64.9 Labs on August 06, 2019. White blood cell count 7.0 red blood count 3.68. Hemoglobin 10.9 and hematocrit 33.1. Platelet count 048672. No immature cells seen on differenti al. [...] 10.4 hematocrit 32.6. MCV 90.6. Platelet count 268982. Creatinine 1.0 and total protein normal at [...] today. Chronic ki dney disease stage 3 161563566 N18.30 Labs with evidence of stage 3 chronic kidney disease. Will follow up additional labs today. Health Concerns Section Related Observation LastModified by Organization Roxy jones LastModified Time None Recorded Concern Status LastModified by Organization Details LastModified Time None Recorded Advance Directives Directive N: Payers Insurance Date Sequence Insurance Name Policy Number Policy Lopez Covered Member ID Lopez Member ID Guarantor Name 09/18/2024 2 FOR LIFE ( - MEDICARE SUPPLEMENT) Stacy Cancino [id number] Stacy Cancino 12/19/2024 1 [place] Stacy Cancino [id number] Stacy Cancino Notes Date Note Type Note Provider Name and Address Organization Details Recorded Time 12/18/2023 text/html 78 yo F returns for evaluation of anemia and chronic kidney disease. Patient recently had labs by primary care physician on August 06, 2019. White blood cell count 7.0 red blood count 3.68. Hemoglobin 10.9 and hematocrit 33.1. Platelet count 127321. No immature cells seen on differential. Serum iron normal at 68. Iron binding capacity of 314.Labs on July 23, 2019 with GFR at 46 and creatinine at 1.2. Consistent with stage 3 chronic kidney disease. Hemoglobin 10.6 red blood cell count 3.64 platelet count 354963. Normal TSH.Labs on August 25, 2019 with white blood cell count 7.86 red blood count 3.6 hemoglobin 10.4 hematocrit 32.6. MCV 90.6. Platelet count 358111. Creatinine 1.0 and total protein normal at [...] 6.67. Hemoglobin 10.9 and hematocrit 34.3. Platelet 916198. Serum iron 78 and iron saturation 23%. [...] hematocrit 33.1. Iron studies normal. Platelet count 190470. Normal differential. Renal function with creatinine 1.1.Patient returns on December 20, 2020. will repeat labs today.Labs on December 20, 2020 with white blood cell count 6.34. Red blood count 4.19. Hemoglobin 12.3 and hematocrit 36.8. Iron studies normal. Platelet count 685900. Normal differential. Normal ferritin. Renal function with [...] Will repeat labs today. Izabella Diez PA-C [address] [facility], [place], [address], [facility] - [place] & [place] 12/18/2023 12:14:44 04/22/2024 text/html 79 yo F returns for evaluation of anemia and chronic kidney disease. Patient recently had labs by primary care physician on August 06, 2019. White blood cell count 7.0 red blood count 3.68. Hemoglobin 10.9 and hematocrit 33.1. Platelet count 067859. No immature cells seen on differential. Serum [...] 10.4 hematocrit 32.6. MCV 90.6. Platelet count 353575. Creatinine 1.0 and total protein normal at [...] 6.67. Hemoglobin 10.9 and hematocrit 34.3. Platelet 491015. Serum iron 78 and iron saturation 23%. [...] hematocrit 33.1. Iron studies normal. Platelet count 951300. Normal differential. Renal function with creatinine 1.1.Patient returns on December 20, 2020. will repeat labs today.Labs on December 20, 2020 with white blood cell count 6.34. Red blood count 4.19. Hemoglobin 12.3 and hematocrit 36.8. Iron studies normal. Platelet count 456931. Normal differential. Normal ferritin. Renal function with [...] will initiate erythropoietin supplementation. Izabella Diez PA-C [address], [place], [address], [place] - [facility] - [place] & [place] 04/22/2024 10:52:29 07/22/2024 text/html 07/22/24-Patient is here to establish care for allergies. Patient has been on allergy injections twice a week for one year with [facility]. Patient uses flonase and Singular daily. Patient is wanting to establish care with our office. She is currently on Carvedilol and has been for a long time but reports she was getting allergy shots without side effects. Blanca Zheng MD [address], [place], [address], [place] - [facility] - [place] & [place] 07/29/2024 10:32:45 09/16/2024 text/html 79 yo F returns for evaluation of anemia and chronic kidney disease. Patient recently had labs by primary care physician on August 06, 2019. White blood cell count 7.0 red blood count 3.68. Hemoglobin 10.9 and hematocrit 33.1. Platelet count 163453. No immature cells seen on differential. Serum [...] 10.4 hematocrit 32.6. MCV 90.6. Platelet count 207073. Creatinine 1.0 and total protein normal at [...] 6.67. Hemoglobin 10.9 and hematocrit 34.3. Platelet 972573. Serum iron 78 and iron saturation 23%. [...] hematocrit 33.1. Iron studies normal. Platelet count 410821. Normal differential. Renal function with creatinine 1.1.Patient returns on December 20, 2020. will repeat labs today.Labs on December 20, 2020 with white blood cell count 6.34. Red blood count 4.19. Hemoglobin 12.3 and hematocrit 36.8. Iron studies normal. Platelet count 617299. Normal differential. Normal ferritin. Renal function with [...] replaced and is feeling great. Will repeat labs Izabella Diez PA-C [address], [place], [address], [place] - [facility] - [place] & [place] 09/16/2024 09:37:19 12/22/2024 text/html 79 yo F returns for evaluation of anemia and chronic kidney disease. Patient recently had labs by primary care physician on August 06, 2019. White blood cell count 7.0 red blood count 3.68. Hemoglobin 10.9 and hematocrit 33.1. Platelet count 478606. No immature cells seen on differential. Serum iron normal at 68. Iron binding capacity of 314.Labs on July 23, 2019 with GFR at 46 and creatinine at 1.2. Consistent with stage 3 chronic kidney disease. Hemoglobin 10.6 red blood cell count 3.64 platelet count 222297. Normal TSH.Labs on August 25, 2019 with white blood cell count 7.86 red blood count 3.6 hemoglobin 10.4 hematocrit 32.6. MCV 90.6. Platelet count 611882. Creatinine 1.0 and total protein normal at [...] 6.67. Hemoglobin 10.9 and hematocrit 34.3. Platelet 384369. Serum iron 78 and iron saturation 23%. [...] hematocrit 33.1. Iron studies normal. Platelet count 928894. Normal differential. Renal function with creatinine 1.1.Patient returns on December 20, 2020. will repeat labs today.Labs on December 20, 2020 with white blood cell count 6.34. Red blood count 4.19. Hemoglobin 12.3 and hematocrit 36.8. Iron studies normal. Platelet count 827231. Normal differential. Normal ferritin. Renal function with [...] Will continue with observation. Izabella Diez PA-C [address], [place], [address], [facility] - [place] - [place] & [place] 12/22/2024 10:59:41 OBGyn Episode No OBEpisode recorded.
--- OUTSIDE RECORDS SUMMARY | 2024-12-25 12:56 | XMS_ITS | Encounter Summary ---
Author Organization [employer] ([place], [place], [place], [place], [place]) Address [address] [place] [address] Care Team Providers Care Rn L And D Name Role Phone Unavailable Primary Care Provider Unavailabl e Encounter Details Date Type Department Care Team (Late st Contact Info) Description 04/09/2019 Transcribed Document [facility] Family Medicine [address] [place] [address] ProviderKarol MD [address] [place] [address] Social History Tobacco Use Types Packs/Day Years Used Date Smoking Tobacco: Never Assessed Comments Unknown Sex and Gender Information Value Date Recorded Sex Assigned at Not on file Legal Sex Female 3:25 PM CDT Gender Identity Not on file Sexual Orientation Not on file documented as of this encounter Miscellaneous Notes * Cerner Conversion Note - Karol Flores MD - 04/09/2019 2:57 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 ? Change your dressing as told by [...] of beer, 5 oz of wine, or 1? oz of hard liquor. ??? Check ingredients [...] to help you relax (sedative). ??? Take njxs-hxi-jlswzvh and prescription medicines only as told by [...] using the ear opposite the pacemaker. ? [employer] players. ? Household appliances, like microwaves. ? Metal detectors. ? Electric generators. ? High-tension wires. ??? Keep all follow-up visits as directed by your health care provider. This is important. Contact a health care provider if: ??? You have pain at the incision site that is not relieved by qiuo-rlf-jlkfowk or prescription medicines. ??? You have any [...] 11/25/2013 Document Revised: 12/27/2016 Document Reviewed: 12/27/2016 [employer] [facility] Interactive Patient Education ? 2019 Meet You. Moderate Conscious Sedation, Adult, Care After These [...] you are awake and alert. ??? Take aypf-iww-halzpld and prescription medicines only as told by [...] 11/25/2013 Document Revised: 07/09/2016 Document Reviewed: 05/26/2016 [employer] Interactive Patient Education ? 2019 [employer] [facility] [employer] Electronically signed by Varsha Perez Conversion Religious Activities Director Judiener at 06/08/2022 12:40 PM CDT documented in this encounter Plan of Treatment Not on file documented as of this encounter Visit Diagnoses Not on filedocumented in this encounter
--- OUTSIDE RECORDS SUMMARY | 2024-12-25 12:56 | XMS_ITS | Referral Summary ---
Author Organization [employer] ([place], [place], [place], [place], [place]) Address [address] [place] [address] Care Team Providers Care Shift Supervisor Name Role Phone Unavailable Primary Care Provider [...]
[2024-12-25 13:47] LABS: Alanine Aminotransferase 21 U/L (12-78); Albumin Level 4.3 g/dl (3.5-5.0); Albumin/Globulin Ratio 1.4 (1.1-1.8); Alkaline Phosphatase 57 U/L (38-126); Anion Gap 10.8 mEq/L (5-15); Aspartate Amino Transferase 28 U/L (14-36); Bilirubin,Total 0.5 mg/dl (0.2-1.3); Blood Urea Nitrogen 22 mg/dl (7-17); Calcium 9.4 mg/dl (8.4-10.2); Carbon Dioxide 28 mmol/L (22.0-30.0); Chloride 101 mmol/L (98-107); Creatinine,Serum 1.00 mg/dl (0.52-1.04); Estimated Glomerular Filt Rate 53 ml/min (>60); GFR (African American) 64 ML/MIN (>60); Globulin 3.1 g/dL (1.3-3.2); Glucose 100 mg/dl (74-100); Potassium 4.8 mmoL/L (3.5-5.1); Sodium 135 mmol/L (136-145); Total Protein,Serum 7.4 g/dl (6.3-8.2)
== END 2024-12-25 23:59 | disposition home or self-care (01) ==
LOC: LAB 12:50
PROVIDERS: PCP Family Medicine; Visit Provider Nurse Practitioner Family
DX: K75.81 Nonalcoholic steatohepatitis (NASH) (principal)
CPT/HCPCS: 36415; 80053

== ENCOUNTER 2025-01-27 12:04 | Emergency (ER) | payer MEDICARE, OTHER, SELFPAY ==
[2025-01-27] VITALS (7 sets, daily range): BP systolic 112–137; BP diastolic 60–77; PULSE 71–79; RESP 12–15; TEMP 36.5–37.1; O2SAT 97–99; BMI 26.5
[2025-01-27 12:18] LABS: Coronavirus 19, PCR Not Detected (NotDetected); Influenza A, PCR Not Detected (NotDetected); Influenza B, PCR Not Detected (NotDetected)
--- NOTE | 2025-01-27 12:40 | XR_ITS ---
FINAL REPORT TECHNIQUE: Single view chest CLINICAL HISTORY: SOB FINDINGS: A single view of the chest was obtained. A pacemaker is in place. The heart is mildly enlarged. There are mild chronic changes at the lung bases. Lungs are otherwise clear. There is no pneumothorax. IMPRESSION: No acute cardiopulmonary process. Reviewed, Interpreted and Dictated by Edvin Juarez MD Transcribed by Shelbi Pham Authenticated and [facility]
--- NOTE | 2025-01-27 12:40 | ECG_ITS ---
APPROVED REPORT Exam: Resting ECG HR:70 bpm ECG Measurements Heart Rate 70 AXES OR 87 P 174 QRSd 101 QRS -31 QT 396 T 132 QTc 417 Conclusion ECTOPIC ATRIAL RHYTHM WITH SHORT OR INTERVAL LOW QRS VOLTAGE IN PRECORDIAL LEADS [QRS DEFLECTION < 1.0 mV IN CHEST LEADS] INFERIOR MYOCARDIAL INFARCTION , PROBABLY OLD [40+ ms Q WAVE AND/OR ST/T ABNORMALITY IN II/aVF] ABNORMAL ECG Electronically signed by : BLADE PHILLIP, 01/27/2025 16:58:13
--- NOTE | 2025-01-27 12:42 | HMH.EDGENADL ---
Discharge Plan Disposition Patient Disposition: Home, Self-Care Prescriptions Prescriptions: No Action magnesium oxide 400 mg (241.3 mg magnesium) tablet 400 mg PO BID mexiletine 150 mg capsule 150 mg PO TID atorvastatin 10 mg tablet 5 mg PO DAILY carvedilol [Coreg] 25 mg tablet 25 mg PO BID spironolactone 25 mg tablet 25 mg PO DAILY levothyroxine 50 mcg capsule 50 mcg PO DAILY aspirin [Adult Low Dose Aspirin] 81 mg tablet,delayed release (DR/EC) 81 mg PO DAILY lisinopril 20 mg tablet 20 mg PO DAILY omeprazole 40 mg capsule,delayed release(DR/EC) 40 mg PO DAILY montelukast 10 mg tablet 10 mg PO DAILY fluticasone propionate 50 mcg/actuation spray,suspension 1 spray intranasal DAILY cholecalciferol (vitamin D3) 250 mcg (10,000 unit) tablet 500 mcg PO DAILY ferrous sulfate 325 mg (65 mg iron) tablet 325 mg PO DAILY multivitamin 1 EACH tablet 1 each PO DAILY furosemide 20 MG tablet 20 mg PO DAILYP PRN (Reason: fluid) vitamin E 400 unit Tablet 400 unit PO DAILY Referrals Follow up/Referrals: Opal Tanner [Primary Care Provider, Medical] - See instructions Juan Gonsalez MD [Staff Physician, General Surgery] - See instructions Jensen Gonzales DO [Staff Physician, Family Practice] - See instructions Activity Restrictions/Add. Instructions Additional Instructions/Restrictions: At this time it was felt you are safe to be discharged home. If new or worsening symptoms please do not hesitate to return the emergency department. Please call schedule appoint with your supervisor [employer] as soon as you are able. Incidentally we found that you had a gallbladder that is full sludge and the wall is slightly thickened. Please call and schedule an appointment with Dr. Gonsalez as soon as you are able for continued evaluation of this. Please call and schedule appoint with Dr. Gonzales to establish care as your new family doctor as soon as you are able. Clinical Impressions Clinical Impression: Exertional dyspnea, CHF (congestive heart failure), Abnormal findings on diagnostic imaging of gall bladder Print Language Print Language: Pashto Discharge ED Provider: Raulito Soni General Adult HPI General Chief complaint: Upper Respiratory Infection Stated complaint: SOA Time Seen by Provider: 01/27/25 12:20 Mode of Arrival: Ambulatory Source of Information: Patient Description of Symptoms (Recalled from ER Triage Doc. by RN): pt c/o SOA, nonproductive cough and diarrhea ongoing since last week. pt denies CP, N/V, abd pain or urinary symptoms. History of Present Illness HPI narrative: Patient is a 79-year-old female with past medical history of pacemaker placement, CKD, irregular heart rate on mexiletine who presents to the emergency department for evaluation of acute on chronic shortness of breath. Patient states she has such exertional shortness of breath over the last few years, irregular heart rate that is on mexiletine she follows with Dr. Clayton. She has had worsening shortness of breath exertional component as of late, no chest pain reported, no abdominal pain reported. She was seen in an appointment today and referred here for continued evaluation. No other acute complaints at this time. Please note that above description of symptoms, in this electronic medical record under categorization of recalled from ER triage doctor by RN are reflective of an initial nursing assessment, however, is not reflective of my full history and physical exam that was personally taken and clarified. Consequentially, this preceding description of symptoms, which may include the patient's categorized chief complaint in the EMR, do not reflect my personal clinical impression, and the ultimate description of history of present illness and patient stated complaints should be deferred to this section of the note. Unless stated otherwise or congruent with this section of the note, additional signs, symptoms, or incongruence should be interpreted as inaccurate with my clinical impression. Related Data Home Medications ?Medication ?Instructions ?Recorded ?Confirmed aspirin 81 mg tablet,delayed 81 mg PO DAILY Blood thinner 12/09/17 01/27/25 release (Adult Low Dose Aspirin) atorvastatin 10 mg tablet 5 mg PO DAILY Cholesterol 12/09/17 01/27/25 carvedilol 25 mg tablet (Coreg) 25 mg PO BID irregular heartbeat 12/09/17 01/27/25 levothyroxine 50 mcg capsule 50 mcg PO DAILY thyroid 12/09/17 01/27/25 lisinopril 20 mg tablet 20 mg PO DAILY blood pressure 12/09/17 01/27/25 magnesium oxide 400 mg (241.3 mg 400 mg PO BID Supplement 12/09/17 01/27/25 magnesium) tablet mexiletine 150 mg capsule 150 mg PO TID irregular heartbeat 12/09/17 01/27/25 spironolactone 25 mg tablet 25 mg PO DAILY Fluid 12/09/17 01/27/25 furosemide 20 mg tablet 20 mg PO DAILYP PRN fluid 10/19/20 01/27/25 multivitamin 1 each PO DAILY Supplement 10/19/20 01/27/25 cholecalciferol (vitamin D3) 250 500 mcg PO DAILY 01/20/24 01/27/25 mcg (10,000 unit) tablet ferrous sulfate 325 mg (65 mg 325 mg PO DAILY 01/20/24 01/27/25 iron) tablet fluticasone propionate 50 1 spray intranasal DAILY 01/20/24 01/27/25 mcg/actuation nasal spray,suspension montelukast 10 mg tablet 10 mg PO DAILY 01/20/24 01/27/25 omeprazole 40 mg capsule,delayed 40 mg PO DAILY 01/20/24 01/27/25 release vitamin E 400 unit tablet 400 unit PO DAILY Supplement 07/15/24 01/27/25 Allergies Allergy/AdvReac Type Severity Reaction Status Date / Time No Known Allergies Allergy Verified 01/27/25 10:58 [facility] Disclaimer: The information contained in this section may have been updated after the patient was seen, as this information can be updated by other users. Medical History Stomach ulcer Chronic kidney disease Sleep apnea History of COVID-19 History of anemia Pacemaker Normal colonoscopy Osteoarthritis GERD (gastroesophageal reflux disease) Cardiomyopathy Hypothyroidism HTN (hypertension) HLD (hyperlipidemia) A-fib Arrhythmia Surgical History History of surgical removal of left nipple Family History Other A-fib Bone cancer Breast cancer Cancer Colon cancer Heart disease Hypertension Leukemia Social History Smoking Status: Never smoker alcohol intake: never substance use type: denies use current occupational status: retired Travel in the last 8 weeks?: None housing: house caffeine: Yes Have you lived/traveled outside [place] in past 30 days?: No Contact w/someone who lives/traveled outside [place] past 30 days?: No Exposure to someone with infectious disease in past 14 days?: No Do you have a fever (greater than 100.4 F or 38 C)?: No Have you tested positive for COVID-19?: No Exposed to someone with COVID-19 in past 14 days?: No Do you have a sore throat?: No Do you have a cough?: No Do you have any weakness?: No Do you have any diarrhea?: No Are you experiencing any unusual bleeding?: No Do you have any muscle aches/pain?: No Do you have any abdominal pain?: No Are you experiencing loss of taste or smell?: No Other Medical History Have you received the Flu Vaccine for this season: Yes Have you received the Pneumonia Vaccine: No ROS Obtained: Yes Systems reviewed as appropriate & no additional complaints except as documented Physical Exam General General appearance: alert and in no apparent distress Head Head exam: atraumatic and normocephalic Eye Eye exam: Present PERRL and EOMI ENT ENT exam: Present mucous membranes moist Neck Neck exam: Present normal inspection Chest Chest inspection: Present normal inspection and symmetric chest wall rise Respiratory Respiratory exam: Present normal lung sounds bilaterally; Absent respiratory distress, wheezes or stridor Cardiovascular Cardiovascular exam: Present regular rate and normal rhythm Abdominal Exam Abdominal exam: Present soft; Absent tenderness Extremities Exam Extremities exam: Present normal inspection; Absent edema Neurological Exam Neurological exam: Present alert and CN II-XII intact Psychiatric Psychiatric exam: Present normal affect Skin Skin exam: Present warm and dry Medical Decision Making Medical Records Screening: Per USPSTF and CDC recommendations, given the prevalence of disease in our region, it is our hospital?s policy to screen for HIV and viral Hepatitis for all patients aged 18 and over and those with ongoing risk factors. Quan Inquiry Pt receiving controlled substance: No Vital Signs: 01/27/25 12:05 01/27/25 13:30 01/27/25 14:11 Temperature 97.7 F Temperature Source Oral Pulse Rate 79 Pulse Rate [Left] 75 Respiratory Rate 12 Blood Pressure 126/75 Blood Pressure [Right Arm] 112/60 Blood Pressure Mean [Right Arm] 77 Blood Pressure Source [Right Arm] Automatic Cuff Blood Pressure Position [Right Arm] Sitting 02 Sat by Pulse Oximetry 99 97 99 Oxygen Delivery Method Room Air Room Air Room Air 01/27/25 14:15 01/27/25 14:20 01/27/25 14:25 Temperature Temperature Source Pulse Rate 78 77 71 Pulse Rate [Left] Respiratory Rate Blood Pressure 120/73 128/77 119/63 Blood Pressure [Right Arm] Blood Pressure Mean [Right Arm] Blood Pressure Source [Right Arm] Blood Pressure Position [Right Arm] 02 Sat by Pulse Oximetry 99 98 98 Oxygen Delivery Method Lab Data Lab Results 01/27/25 12:14: SARS-CoV-2 (PCR) Not detected, Influenza A Untype (PCR) Not detected, Influenza Type B (PCR) Not detected 01/27/25 12:51: WBC 6.1, RBC 3.91 L, Hgb 11.6 L, Hct 35.3 L, MCV 90.3, MCH 29.7, MCHC 32.9, RDW 15.2, Plt Count 170, MPV 10.1, Neut % (Auto) 52.3, Lymph % (Auto) 26.1, [place] % (Auto) 16.0 H, Eos % (Auto) 4.6, Baso % (Auto) 0.8, Neut # (Auto) 3.2, Lymph # (Auto) 1.6, [place] # (Auto) 1.0, Eos # (Auto) 0.3, Baso # (Auto) 0.1, D-Dimer 1.06 H, VBG pH 7.34, VBG pCO2 49.6, VBG pO2 36.5, VBG HCO3 26.0, VBG Total CO2 27.5 H, VBG O2 Saturation 62.7, VBG Base Excess 0.2, VBG Lactic Acid 1.6, Sodium 138, Potassium 4.6, Chloride 97 L, Carbon Dioxide 28, Anion Gap 17.6 H, BUN 26 H, Creatinine 1.30 H, Estimated Creat Clear 36, Estimated GFR 39 L, Est GFR ( Amer) 48 L, Glucose 100, Calcium 9.7, Total Bilirubin 0.8, AST 31, ALT 25, Alkaline Phosphatase 69, Troponin I < 0.01, NT-Pro-B Natriuret Pep 5700 H, Total Protein 7.5, Albumin 4.5, Globulin 3.0, Albumin/Globulin Ratio 1.5 01/27/25 12:51 01/27/25 12:51 Orders (Tests/Meds): ED MEDICATIONS Discontinued Medications Generic Name Dose Route Start Last Admin Trade Name Freq PRN Reason Stop Dose Admin Iopamidol 70 ml 01/27/25 14:55 01/27/25 14:56 Iopamidol-370 (76%);100ml Bottle IV 01/27/25 14:56 70 ml ONCE ONE Administration Sodium Chloride 50 ml 01/27/25 14:55 01/27/25 14:55 0.9 % Sodium Chloride 50 Ml Vial IV 01/27/25 14:56 50 ml ONCE ONE Administration Sodium Chloride 10 ml 01/27/25 14:55 01/27/25 14:56 Sodium Chloride 0.9% 10ml Syr (Rad Only) IV 01/27/25 14:56 10 ml ONCE ONE Administration ORDERS Category Date Time Status CT angio chest PE protocol Stat Cat Scan 01/27/25 14:05 Taken CXR --portable [XR chest portable] Stat Exams 01/27/25 12:40 Completed BNP [NT Pro Brain Natriuretic Pep.] Stat Lab 01/27/25 12:51 Completed CBC w/Auto Diff [Complete Blood Count Auto Diff] Stat Lab 01/27/25 12:51 Completed CMP [Comprehensive Metabolic Panel] Stat Lab 01/27/25 12:51 Completed D-Dimer Stat Lab 01/27/25 12:51 Completed Rapid PCR Covid and Flu A/B Stat Lab 01/27/25 12:14 Completed Trop I [Troponin I] Stat Lab 01/27/25 12:51 Completed Troponin I Q3H Lab 01/27/25 15:45 Received Troponin I Q3H Lab 01/27/25 18:45 Ordered VBG [Venous Blood Gas] Stat RT 01/27/25 12:51 Completed ECG Data Tracing #1: Independently interpreted by me rate is 70, rhythm is paced, axis is normal, no ST elevation in anatomical contiguous leads, QTc 417. Medical Decision Narrative: In summary patient is an 79-year-old female with past medical history described above who presents emergency department for evaluation of acute on chronic shortness of breath. Patient is hemodynamically stable and nontoxic-appearing upon arrival, afebrile. Clear to auscultation in all lung fitzgerald. No edema BLE. Differential includes chronic structural lung disease, pulmonary embolism, atypical ACS, heart failure, among others. Workup will be conducted in totality with hematologic labs, chest x-ray, D-dimer. Initial workup reviewed by me no significant leukocytosis no transfusable anemia D-dimer is elevated will get CT angio pulmonary embolism protocol compensated acid-base status minimal elevated creatinine initial troponin undetectably low BNP elevated 5700. Swab negative. CTA chest pulmonary embolism protocol no evidence of embolus or dissection there is incidental gallbladder wall thickening with sludge but patient is not tender in the right upper quadrant. I relayed these findings to the patient and given that she has not had chest pain throughout her stay in the emergency department I think that all emergencies have been ruled out at this point she will follow-up with Dr. Mayers on outpatient basis. Critical Care Critical Care Time Critical Care Time: No
[2025-01-27 13:03] LABS: Hematocrit 35.3 % (37.0-47.0); Hemoglobin 11.6 g/dL (12.2-16.2); Immature Granulocytes % 0.2 %; Mean Corpuscular HGB Conc 32.9 g/dL (31.8-35.4); Mean Corpuscular Hemoglobin 29.7 pg (27.0-31.2); Mean Corpuscular Volume 90.3 fl (81-99); Nucleated Red Blood Cells % 0 %; Platelet Count 170 K/mm3 (142-424); Red Blood Count 3.91 M/mm3 (4.20-5.40); Red Cell Distribution Width-SD 49.5 fL; White Blood Count 6.1 K/mm3 (4.8-10.8)
[2025-01-27 13:04] LABS: Lactate Venous 1.6 mmol/L (0.4-2.0); VBG HCO3 26.0 mmol/L (23-30); VBG PCO2 49.6 mmol/L (35-51); VBG PH 7.34 mmol/L (7.31-7.41); VBG PO2 36.5 mmol/L (28-40)
[2025-01-27 13:44] LABS: Alanine Aminotransferase 25 U/L (12-78); Albumin Level 4.5 g/dl (3.5-5.0); Albumin/Globulin Ratio 1.5 (1.1-1.8); Alkaline Phosphatase 69 U/L (38-126); Anion Gap 17.6 mEq/L (5-15); Aspartate Amino Transferase 31 U/L (14-36); Bilirubin,Total 0.8 mg/dl (0.2-1.3); Blood Urea Nitrogen 26 mg/dl (7-17); Calcium 9.7 mg/dl (8.4-10.2); Carbon Dioxide 28 mmol/L (22.0-30.0); Chloride 97 mmol/L (98-107); Creatinine Clearance Estimated 36 mL/min (50-200); Creatinine,Serum 1.30 mg/dl (0.52-1.04); Estimated Glomerular Filt Rate 39 ml/min (>60); GFR (African American) 48 ML/MIN (>60); Globulin 3.0 g/dL (1.3-3.2); Glucose 100 mg/dl (74-100); Potassium 4.6 mmoL/L (3.5-5.1); Sodium 138 mmol/L (136-145); Total Protein,Serum 7.5 g/dl (6.3-8.2)
[2025-01-27 13:50] LABS: D-Dimer 1.06 ug/mL (0.0-0.5)
[2025-01-27 13:59] LABS: NT Pro Brain Natriuretic Pep. 5700 pg/mL (0-450); Troponin I < 0.01 ng/ml (0.00-0.034)
--- NOTE | 2025-01-27 14:05 | CT_ITS ---
FINAL REPORT TECHNIQUE: The patient was injected with IV contrast. Axial images were obtained through the chest in a PE protocol. 3-D reconstruction images were also performed. Individualized dose reduction techniques using automated exposure control or adjustment of the MA and/or KV according to patient's size were employed. CLINICAL HISTORY: SOB elevated dimer FINDINGS: Mediastinal vasculature is adequately opacified. No pulmonary artery filling defects are identified to suggest PE. There is no aortic dissection. There is streak artifact arising from left upper anterior chest wall pacemaker. There is no axillary adenopathy. There is no hilar or mediastinal adenopathy. The heart size is normal. There is no pericardial or pleural effusion. Limited images of the upper abdomen reveal sludge within the gallbladder. There is gallbladder wall thickening. There are benign-appearing cysts in the kidneys measuring up to 3.2 cm in the left kidney. No suspicious infiltrate or nodule is identified. There is mild bibasilar atelectasis. IMPRESSION: No pulmonary embolus or dissection. Gallbladder wall thickening with sludge. Reviewed, Interpreted and Dictated by Edvin Juarez MD Transcribed by Ebony Neumann Authenticated and [facility]
--- NOTE | 2025-01-27 14:15 | PC.NURSE ---
Pt reports no needs at this time. call linares within reach
[2025-01-27] MEDS: 0.9 % SODIUM CHLORIDE 50 ML VIAL IV (14:55)
[2025-01-27] MEDS: IOPAMIDOL-370 (76%);100ML BOTTLE 70 ML IV (14:56)
[2025-01-27] MEDS: SODIUM CHLORIDE 0.9% 10ML SYR (RAD ONLY) 10 ML IV (14:56)
[2025-01-27 17:07] LABS: Troponin I < 0.01 ng/ml (0.00-0.034)
== END 2025-01-27 16:10 | disposition home or self-care (01) ==
PROVIDERS: Emergency Provider Emergency Medicine; PCP Family Medicine
DX: R06.02 Shortness of breath (principal); I11.0 Hypertensive heart disease with heart failure; I50.9 Heart failure, unspecified; R93.2 Abnormal findings on diagnostic imaging of liver and biliary tract
CPT/HCPCS: 71045; 71275; 80053; 82803; 83880; 84484; 85025; 85378; 87636; 93005; 99284; 99285; Q9967